=== PATIENT | female | born 1975 | race Caucasian/White ===

== ENCOUNTER → 2024-10-26 18:26 | Outpatient (REF) | payer OTHER, SELFPAY | LOC: RAD 18:26 | PROVIDERS: ATTENDING PHYSICIAN Physician Assistant | DX: R60.0 Localized edema (principal) | CPT/HCPCS: 71046 ==

== ENCOUNTER 2024-11-29 16:57 | Inpatient (IN) | payer OTHER, SELFPAY ==
[2024-11-29] VITALS (9 sets, daily range): BP systolic 118–193; BP diastolic 90–132; BMI 39.2
--- NOTE | 2024-11-29 10:58 | ED.GENMED ---
History of Present Illness
General
Chief Complaint: Blood Pressure Problem
Source: patient
Time Seen by Provider: 11/29/24 10:40
History of Present Illness
History of Present Illness:
49-year-old female with past medical history of hypertension, GERD, cannabinoid hyperemesis presenting to the emergency department for evaluation of persistent nausea and vomiting, body cramping and generally feeling unwell which started earlier
today with patient noting she recently started Zepbound this past but noting her symptoms feel more like her cannabinoid hyperemesis. Patient notes that she has not used any cannabinoid products since 2 weeks ago. She denies any fevers,
chills, rigors, urinary symptoms or bowel changes. No known sick contacts, recent travel or recent antibiotics. Patient did not attempt any medications prior to arrival. She notes that she has had relief with Compazine and Benadryl in the past
with her cannabinoid hyperemesis symptoms. Patient was started on Zepbound by her drop wire operator as part of a weight loss regimen.
Past History
Past History
ED Past Medical History: GERD, HTN, Psychiatric (Anxiety, depression, Panic disorder) and Other (Migraine HAs, enteritis, Cyclical vomiting, Gastritis, Colitis, DVT, Endometriosis, )
ED Past Surgical History: and Other (Rhinoplasty/sinus surgery)
Social History
Tobacco: Non-smoker
Alcohol: Occasional
Drug: Marijuana (daily)
Personal:
Living: with family
Employment: Employed
Family History
Family History: Other; Negative Diabetes, Hypertension or CAD
Review of Systems
Review of Systems
All Other Systems: ROS reviewed and negative except as documented in HPI and ROS
Phy Exam
Physical Exam
Physical Exam:
GENERAL: Alert , in no apparent distress, But appears very anxious, tremulous, hyperventilating
EYE: clear conjunctiva b/l
HEAD: NCAT
ENT: o/p clr, mmm.
CARDIAC: Regular rate and rhythm .
LUNGS: Clear breath sounds bilaterally, no acute respiratory distress, no wheezes/rales/rhonchi
ABDOMEN: Soft, generally tender, no r/g, no cvat
NEUROLOGICAL: Alert and oriented
SKIN: Warm and dry, skin intact.
MUSCULOSKELETAL: No edema, well perfused.
PSYCH: Normal and appropriate interaction.
Scores
Heart Failure Risk
Heart Failure Risk Score: Not Applicable
Heart Score for Chest Pain Patients
STEMI patient?: Not applicable
Withdrawal Assessment of Alcohol
Withdrawal Assessment Completed?: Not applicable
Course
Orders/Labs/Results
Orders:
Orders
11/29/24 09:32
EKG [Electrocardiogram (*1)] Urgent
Reason for Study: Chest Pain
EKG- Treatment ONCE
11/29/24 10:47
0.9% Sodium Chloride 1000 ml [Nss] 1,000 ml IV BOLUS
Diphenhydramine [Benadryl] 25 mg IV NOW STA
Prochlorperazine [Compazine] 10 mg IV NOW STA
11/29/24 10:48
Test Result ONCE
11/29/24 11:11
Complete Blood Count/With Diff Urgent
11/29/24 11:53
Lorazepam [Ativan] 1 mg IV NOW STA
Ondansetron Injectable [Zofran] 4 mg IV NOW STA
11/29/24 12:07
Comprehensive Metabolic Panel Urgent
HCG, Serum Qualitative Screen Urgent
Lipase Urgent
11/29/24 12:51
0.9% Sodium Chloride 1000 ml [Nss] 1,000 ml IV BOLUS
11/29/24 15:35
Ondansetron Injectable [Zofran] 4 mg IV NOW STA
11/29/24 16:20
CT Abd/pel (oral only)-DH Only Urgent
Comment:
Reason For Exam: intractable nausea and vomiting
Iohexol [Omnipaque] See Protocol PO NOW STA
11/29/24 16:29
Admit/Transfer Patient As Directed
Co-Sign Provider:
Level of Care: Inpatient admission
Assign to:: Medical/Surgical
Physician / Group: Gregory Giang
Diagnosis: intractable nausea and vomiting
Reason for Hospitalization: intractable nausea and vomiting
Expected length of stay greater than two midnights?: Yes
ELOS- Estimated Length of Stay in days: 3
I certify the patient meets the requirements for IP care: Yes
PRN Pain Medication Management As Directed
May give lesser potent ordered pain med per pt: Yes
preference::
Protocol:: Medication orders for pain may be administered in a
manner that supports deferring to patient preference
when the pt is:
- Requesting an ordered lesser potent pain medication.
Least to most potent pain medications are defined
as: acetaminophen < NSAID < tramadol < opioids
(morphine, oxycodone, hydromorphone).
- Requesting a lesser dose of the same medication IF
ORDERED.
- Requesting a less intrusive route of administration
if both routes are prescribed by the provider (PO <
IV).
11/29/24 16:30
Code Status As Directed
Resuscitation Status: Full Code
11/29/24 16:46
Lorazepam [Ativan] 2 mg IV NOW STA
11/29/24 16:47
Metoclopramide [Reglan] 10 mg IV NOW STA
11/29/24 16:52
0.9% Sodium Chloride [Nss (Preservative Free)] 1 ml IV NOW STA
Abnormal Lab Results
11/29/24 11/29/24
11:11 12:07
WBC 13.2 H 10^3/uL
(4.8-10.8)
Hgb 16.1 H g/dL
(12.0-16.0)
MCH 31.8 H pg
(27.0-31.0)
Abs Immat Gran (auto) 0.1 H 10^3/uL
(0-0.05)
Absolute Neuts (auto) 10.4 H 10^3/uL
(1.4-6.5)
Immature Gran % 0.8 H %
(0-0.5)
Neutrophils % 78.7 H %
(42.2-75.2)
Lymphocytes % 15.1 L %
(20.5-51.1)
Carbon Dioxide 15 L mmol/L
(22-30)
BUN 21 H mg/dl
(7-17)
Creatinine 1.2 H mg/dL
(0.6-1.0)
Glucose 146 H mg/dl
(70-99)
Total Bilirubin 1.4 H mg/dl
(0.2-1.3)
AST 46 H U/L
(14-36)
ALT 37 H U/L
(0-35)
Alkaline Phosphatase 145 H U/L
(38-126)
Albumin 5.2 H g/dl
(3.5-5.0)
11/29/24 11:11
11/29/24 12:07
Vital Signs
Initial and Last Documented VS:
Initial Vital Signs
Temp Pulse Resp BP Pulse Ox
98.0 F 106 18 193/120 99
11/29/24 09:29 11/29/24 09:29 11/29/24 09:29 11/29/24 09:29 11/29/24 09:29
Last Documented Vital Signs
Temp Pulse Resp BP Pulse Ox
98.0 F 117 17 152/91 97
11/29/24 09:29 11/29/24 16:15 11/29/24 16:15 11/29/24 16:10 11/29/24 16:15
MDM/Problems Addressed
Differential Diagnosis Includes:
Adverse reaction to new medication, cannabinoid hyperemesis thought to be a little less likely given patient's last use was over 2 weeks ago, hypertensive urgency, dehydration, electrolyte derangement, pancreatitis
MDM/Problems Addressed:
49-year-old female presenting to the emergency department for evaluation of generalized abdominal pain, nausea, vomiting and body cramping which started earlier today. History of cannabinoid hyperemesis but last used 2 weeks ago. Recently started
on Zepbound this past . Patient significantly hypertensive, tachycardic on arrival. Will monitor BP and heart rate. Will treat symptoms with Compazine and Benadryl as patient has noted much relief with this in the past. Will also treat
with IV fluids. Labs ordered. Disposition pending.
Chronic conditions affecting care: Other (Cannabinoid hyperemesis, difficult to control hypertension)
Acute Exacerbation and/or Progression of Chronic Illness: HTN
*Pulse Oximetry
Patient hypoxic: no
*Galvanizer Zinc Interpretation
Rate: normal
Rhythm: sinus
*Critical Care Note
Total Time (30-74mins, 75-104mins- exclusive of procedures): Not Applicable
Comment
Comment:
11:53 AM: On reevaluation patient still noting nausea and anxiety. She still does appear quite anxious as well. 1 mg of Ativan and Zofran ordered. Patient QT within normal limits on initial EKG.
Patient Management
Discussion with other providers: Hospitalist
Escalation/DeEscalation of care consider admission/obs:
Following Ativan and Zofran patient did report relief of symptoms. Continuing to observe and will plan to repeat BMP following completion of second liter of IV fluids.
Prior to completing second liter of IV fluids patient started having persistent vomiting again. Second dose of Zofran ordered. Given this is the third round of medications combined with intractable symptoms we will plan for admission for continued
hydration and medication management
ED Attending Note
-
Portions of this chart may have been created with voice recognition software.� Occasional wrong word or��sound alike� substitutions may have occurred due to the inherent limitations of voice recognition software.
Discharge Plan
Departure
Patient Disposition: Admit
Date of Disposition: 11/29/24
Time of Disposition: 15:37
Presentation/result/management discussed w/ accepting MD/DO: Hospitalist
Discharge Problem:
Intractable vomiting, Dehydration
Interventions
Interventions:
*Risk Screen - Suicide Last Done: 11/29/24 09:29
*General Assessment Last Done: 11/29/24 09:29
*Neglect/Abuse Screening Last Done: 11/29/24 09:29
*ED COVID-19 Vaccine History Last Done: 11/29/24 09:29
ED- Cardiac Assessment Last Done: 11/29/24 11:35
ED- Neurological Assessment Last Done: 11/29/24 11:35
ED- Pulmonary Assessment Last Done: 11/29/24 11:35
[2024-11-29] MEDS: COMPAZINE 10 MG IV (11:05)
[2024-11-29] MEDS: BENADRYL 25 MG IV (11:05)
[2024-11-29] MEDS: NSS 1000 IV ×3 (11:06→20:42)
[2024-11-29 11:28] LABS: % Basophils 0.7 % (0-2); % Eosinophils 0.2 % (0-6); % Immature Granulocytes 0.8 % (0-0.5); % Lymphocytes 15.1 % (20.5-51.1); % Monocytes 4.5 % (1.7-9.3); % Neutrophils 78.7 % (42.2-75.2); Absolute Basophils 0.1 10^3/uL (0-0.2); Absolute Immature Granulocytes 0.1 10^3/uL (0-0.05); Absolute Monocytes 0.6 10^3/uL (0.1-0.6); Absolute Neutrophils 10.4 10^3/uL (1.4-6.5); Hematocrit 45.2 % (37.0-47.0); Hemoglobin 16.1 g/dL (12.0-16.0); Mean Corp Hgb Conc. 35.6 g/dL (33.0-37.0); Mean Corpuscular Hgb 31.8 pg (27.0-31.0); Mean Corpuscular Volume 89.2 fL (81.0-99.0); Mean Platelet Volume 9.6 fL (7.4-10.4); Nucleated Red Blood Cells % 0 %; Platelet Count 348 10^3/uL (130-400); Red Blood Cell Count 5.07 10^6/uL (4.20-5.40); Red Cell Dist. Width 12.9 % (11.5-14.5); White Blood Cell Count 13.2 10^3/uL (4.8-10.8)
[2024-11-29] MEDS: ATIVAN 1 MG IV (12:00)
[2024-11-29] MEDS: ZOFRAN 4 MG IV ×2 (12:00→15:39)
[2024-11-29 12:29] LABS: HCG, Serum Qualitative Screen Negative
[2024-11-29 12:41] LABS: ALT (SGPT) 37 U/L (0-35); AST (SGOT) 46 U/L (14-36); Albumin 5.2 g/dl (3.5-5.0); Alkaline Phosphatase 145 U/L (38-126); Blood Urea Nitrogen 21 mg/dl (7-17); Calcium 9.9 mg/dl (8.4-10.2); Carbon Dioxide 15 mmol/L (22-30); Chloride 98 mmol/L (98-107); Glucose 146 mg/dl (70-99); Lipase 133 U/L (23-300); Potassium 4.1 mmol/L (3.5-5.1); Sodium 136 mmol/L (135-145); Total Bilirubin 1.4 mg/dl (0.2-1.3); Total Protein 8.2 g/dl (6.3-8.2); eGFR 55.49
--- NOTE | 2024-11-29 15:41 | HPS.HSE ---
Family Physician
-
Family Physician: Law Bush
Chief Complaint
-
intractable nausea and vomiting
History of Present Illness
Patient is a 49-year-old female with past medical history significant for hypertension, hyperlipidemia, cannabinoid hyperemesis and depression who presented to [facility] for evaluation of persistent nausea and vomiting associated with body
cramping and generally feeling unwell starting after taking Zepbound on and increasingly gotten worse. Patent reports last cannabis use was 2 weeks ago and newly she started Zepbound this past . Patient states Zepbound was started
by truck body repairer to be a part of a weight loss regimen and first injectable she has tried to help with weight loss. She denies fever, cough, shortness of breath, constipation, diarrhea or urinary symptoms.
Medical History
Past Medical History
Past Medical History: Reports Other
Additional Past Medical History:
hypertension
hyperlipidemia
cannabinoid hyperemesis
depression
Past Surgical History: Reports Other
Additional Past Surgical History:
x2
septoplasty
rhinoplasty
wisdom teeth extraction
Social History
Tobacco: Non-smoker
Alcohol: Occasional
Drug: Former User and Marijuana (last smoked 2weeks ago)
Living: With Family
Employment: Employed
Family History
Family History: Not pertinent
Allergies / Home Medications
Allergies reflects when Allergies were last updated in [facility].
Home Medications with original date entered in [facility]
Allergy/Medication List:
Allergies
Allergy/AdvReac Type Severity Reaction Status Date / Time
No Known Allergies Allergy Verified 11/29/24 09:32
Home Medications
nifedipine 60 mg tablet,extended release 60 mg PO DAILY Blood pressure 03/09/19
venlafaxine 150 mg capsule,extended release 24 hr (Effexor XR) 150 mg PO DAILY #30 caps 07/25/19
venlafaxine 75 mg capsule,extended release 24 hr 75 mg PO DAILY #30 caps 07/25/19
metoprolol succinate 50 mg tablet,extended release 24 hr 50 mg PO DAILY Blood pressure 02/23/22
pantoprazole 40 mg tablet,delayed release (Protonix) 40 mg PO DAILY #30 tabs 10/13/23
aripiprazole 10 mg tablet (Abilify) 10 mg PO DAILY 11/29/24
dexmethylphenidate 10 mg tablet (Focalin) 10 mg PO DAILY 11/29/24
Review of Systems
-
History Source: Patient
Constitutional: Reports Chills
EENT: Reports No Symptoms
Respiratory: Reports No Symptoms
Cardiac: Reports No Symptoms
Abdomen/GI: Reports Nausea and Vomiting
: Reports No Symptoms
Musculoskeletal: Reports No Symptoms
Skin: Reports No Symptoms
Neurological: Reports No Symptoms
Endocrine: Reports No Symptoms
Hematologic/Lymphatic: Reports No Symptoms
Psych: Reports No Symptoms
Physical Exam
Vital Signs
Vital Signs
Temp Pulse Resp BP Pulse Ox
98.0 F 125 22 142/90 100
11/29/24 09:29 11/29/24 11:40 11/29/24 11:40 11/29/24 11:40 11/29/24 11:40
Physical Exam
General: Well Developed, Well Nourished and Appears in Distress
HEENT: NormoCephalic, Moist mucous membranes, Atraumatic, [place] Conjunctivae, Nose Appears Normal and Ears Appear Normal
Respiratory: Clear and Non Labored Respirations
Cardiac: S1/S2, Regular Rhythm and Tachycardia; No Murmur, Rub or Gallop
Breast: Deferred by me
GI: Soft, Non Tender and Other (hypoactive bowel sounds ); No Organomegaly
Rectal: Deferred by Provider
Genito-urinary: Deferred by me
Musculoskeletal: No Clubbing, No Cyanosis and No Edema
Skin: Warm and IV/Catheter Site; No Rash
Neuro: Awake, Alert, AO x 3 and Nonfocal/grossly intact
Psych: Intact Judgment/Insight
Laboratory Results
-
11/29/24 11:11
11/29/24 12:07
Laboratory Results
Total Bilirubin 1.4 mg/dl (0.2-1.3) H 11/29/24 12:07
AST 46 U/L (14-36) H 11/29/24 12:07
ALT 37 U/L (0-35) H 11/29/24 12:07
Alkaline Phosphatase 145 U/L (38-126) H 11/29/24 12:07
Lipase 133 U/L (23-300) 11/29/24 12:07
Data Reviewed
-
Medical Tests (Nuc Med, Echo, EKG etc): Report Reviewed by me (EKG: SINUS TACHYCARDIA POSSIBLE LEFT ATRIAL ENLARGEMENT BORDERLINE ECG)
Lab Data: Labs Reviewed by me (WBC 13.2, BUN 21, Creat 1.2, Tot Sreedhar 1.4, AST 46, ALT 37, Alk Phos 145)
Impression/Plan
-
IMPRESSION/PLAN:
#intractable nausea and vomiting
WBC 13.2
CT Abd/pelvis: pending
- Admit to med/surg
- IVF
- antiemetics
- supportive care
#hypertension
- continue metoprolol, and nifedipine
#depression
- continue aripiprazole, and venlafaxine
#cannabinoid hyperemesis
patient last use 2 weeks ago
- encourage continued cessation
#hyperlipidemia
Code Status: Full code
DVT Prophylaxis: SCDs
[2024-11-29] MEDS: OMNIPAQUE 50 ML PO (16:53)
[2024-11-29] MEDS: ATIVAN 2 MG IV (16:54)
[2024-11-29] MEDS: REGLAN 10 MG IV ×2 (16:54→19:57)
--- NOTE | 2024-11-29 20:46 | W.PN.UPDATE ---
Update Note
Progress Note Update
Attending addendum
Patient seen idependently
49-year-old woman with past medical history significant for:
hypertension,
hyperlipidemia,
cannabinoid hyperemesis
depression
presents with persistent nausea and vomiting associated with body cramping and generally feeling unwell. This started after taking Zepbound (GLP-1 injectable weight loss drug) on and has been increasingly gotten worse. Last cannabis use
was 2 weeks ago. She denies fever, cough, shortness of breath, constipation, diarrhea or urinary symptoms. CT ordered in ED, but results pending.
Past Medical History
hypertension
hyperlipidemia
cannabinoid hyperemesis
depression
Past Surgical History: Reports Other
Additional Past Surgical History:
x2
septoplasty
rhinoplasty
wisdom teeth extraction
Physical Exam
General: Well Developed, Well Nourished and Appears in Distress
HEENT: NormoCephalic, Moist mucous membranes, Atraumatic, [place] Conjunctivae, Nose Appears Normal and Ears Appear Normal
Respiratory: Clear and Non Labored Respirations
Cardiac: S1/S2, Regular Rhythm and Tachycardia; No Murmur, Rub or Gallop
GI: Soft, Non Tender and Other (hypoactive bowel sounds ); No Organomegaly
Psych: Intact Judgment/Insight
IMPRESSION/PLAN:
1. intractable nausea and vomiting
This is less likely cannabinoid hyperemesis (given timeline) and more likely gastroparesis from GLP-1.
Reglan
IVF
NPO
IV ativan
Supportive care
Please see PROGRAMS DIRECTOR note for full details on
hypertension
depression
cannabinoid hyperemesis
hyperlipidemia
Code Status: Full code
DVT Prophylaxis: SCDs
[2024-11-29] MEDS: LOPRESSOR 5 MG IV (23:14)
--- NOTE | 2024-11-29 23:23 | PTCARENOTE ---
Pt received on unit approximately 1900. Pt able to walk from stretcher to bed with no difficulty. Pt med-surge. AAOx3 and able to make needs known. Pt VS checked again at 8pm her BP was 187/113 and tachycardic in the 120s. Pt requested she wanted to
sleep and had been moving a bit. BP took again at 2230 with a result of 179/121 in the ROSS and then taken again on the TOR 168/112. Pt denies headache or blurry vision, but she states she feels 'kind of wonky 'and still tachycardic in the 110s-
120s. DEPUTY CLERK notified, new orders received, Lopressor mg IV NOW.
[2024-11-30] VITALS (7 sets, daily range): BP systolic 143–190; BP diastolic 82–120
--- NOTE | 2024-11-30 02:10 | DOWNTIME ---
There was a [employer] Client Process Worker Downtime on 11/30/2024 from 0100 to 11/30/2023 at 0205 . Downtime documentation of patient's care, including medication administrations, has been reconciled in the electronic record per guidelines. Refer to the
patient's paper chart under the miscellaneous tab to see printed paper medication records and downtime forms.
[2024-11-30 07:58] LABS: Hematocrit 40.4 % (37.0-47.0); Hemoglobin 13.5 g/dL (12.0-16.0); Mean Corp Hgb Conc. 33.4 g/dL (33.0-37.0); Mean Corpuscular Hgb 31.6 pg (27.0-31.0); Mean Corpuscular Volume 94.6 fL (81.0-99.0); Mean Platelet Volume 9.9 fL (7.4-10.4); Platelet Count 282 10^3/uL (130-400); Red Blood Cell Count 4.27 10^6/uL (4.20-5.40); Red Cell Dist. Width 13.4 % (11.5-14.5); White Blood Cell Count 13.2 10^3/uL (4.8-10.8)
[2024-11-30 08:17] LABS: Blood Urea Nitrogen 15 mg/dl (7-17); Calcium 8.6 mg/dl (8.4-10.2); Carbon Dioxide 22 mmol/L (22-30); Chloride 101 mmol/L (98-107); Estimated Creatinine Clearance 89 ml/min; Glucose 98 mg/dl (70-99); Potassium 4.1 mmol/L (3.5-5.1); eGFR > 60.00
[2024-11-30 08:22] LABS: Sodium 138 mmol/L (135-145)
[2024-11-30] MEDS: NSS 1000 IV ×2 (08:54→17:21)
[2024-11-30] MEDS: EFFEXOR XR 75 MG PO (08:55)
[2024-11-30] MEDS: EFFEXOR XR 150 MG PO (08:55)
[2024-11-30] MEDS: ABILIFY 10 MG PO (08:55)
[2024-11-30] MEDS: PROCARDIA XL (EXTENDED RELEASE) 60 MG PO (08:55)
[2024-11-30] MEDS: PROTONIX 40 MG PO (08:55)
[2024-11-30] MEDS: TOPROL XL 50 MG PO (08:55)
--- NOTE | 2024-11-30 09:31 | W.PN.HOSP.TC ---
Addendum entered and electronically signed by Shantel Corral MD 11/30/24 12:44:
I saw and evaluated the patient. I reviewed the resident�s note and agree with findings and plan as documented in the resident�s note.
A/P:
# Intractable nausea and vomiting, ddx include side effect of Zepbound, vs gastroparesis, vs cyclic vomiting syndrome/cannabis hyperemesis syndrome
Mild leukocytosis at 13.2 likely reactive, patient is afebrile and non-toxic appearing
CT AP largely unrevealing: small hiatal hernia. Mild gastric distention. Mild circumferential wall thickening throughout most of the colon. SEVERE DIFFUSE HEPATIC STEATOSIS
Cont clears and advance diet as tolerated
Zofran PRN for nausea
trial of hot shower and lidocaine cream to apply over anterior abdomen.
noted UDS positive for benzodiazepines (patient received Ativan during her hospital stay), marijuana.
# Mild transaminitis likely from hepatic steatosis
Trend LFTs
# Hypertension
continue metoprolol, nifedipine
# Depression
mood stable
continue aripiprazole, venlafaxine
# cannabinoid hyperemesis
patient last used 2 weeks ago
encourage cessation
Code Status: Full code
DVT Prophylaxis: SCDs
Original Note:
Today's Communication/Plan
-
Ondansetron as needed
Advance diet as tolerated
Lidocaine cream on abdomen
Hot shower
Trend LFTs a.m.
Assessment / Plan
Assessment / Plan
49-year-old for female, with past medical history of hypertension, hyperlipidemia, cannabinoid hyperemesis syndrome and depression admitted for persistent nausea and vomiting after she started taking Zepbound.
Impression/plan
#Intractable nausea and vomiting
Likely from side effect of Zepbound, gastroparesis versus cannabis hyperemesis syndrome
Mild leukocytosis at 13.2, patient is afebrile, no diarrhea, will monitor.
CT abdomen pelvis�11/29/2024�
Small hiatal hernia.Mild gastric distention without evidence for obstruction. Mild circumferential wall thickening throughout most of the colon. Diagnostic possibilities are (1) a mild colitis or (2) under distention of the colonic lumen.SEVERE
DIFFUSE HEPATIC STEATOSIS.Small intramural uterine leiomyoma.Severe discogenic degenerative disease at L5/S1.
Continue IV fluids
Advance diet as tolerated
Stop Reglan, concern for dyskinesias. Will start her on ondansetron as needed.
Lidocaine cream on the abdomen
Hot shower
Urine drug screen positive for benzodiazepines (patient received Ativan during her hospital stay), marijuana.
#Mild transaminitis
Likely from hepatic steatosis
Trend LFTs
#Hypertension
continue metoprolol, and nifedipine
#Depression
continue aripiprazole, and venlafaxine
#cannabinoid hyperemesis
patient last used 2 weeks ago
encourage cessation
Code Status: Full code
DVT Prophylaxis: SCDs
Anticipated Discharge: 24 - 48 hours
Subjective/Interval History
-
Date of Service: November 30, 2024
Patient was not able to tolerate clears. Feels nauseous. Abdominal pain has improved.
Objective Data
-
Labs:
Laboratory Results
11/30/24
07:20
WBC 13.2 H
Hgb 13.5
Hct 40.4
Plt Count 282
Sodium 138
Potassium 4.1
Chloride 101
Carbon Dioxide 22
BUN 15
Creatinine 0.9
Glucose 98
Calcium 8.6
Vital Signs:
Vital Signs
Temp Pulse Resp BP Pulse Ox
97.9 F 93 18 149/82 96
11/30/24 07:40 11/30/24 07:40 11/30/24 07:40 11/30/24 07:40 11/30/24 07:40
I&O
11/29/24 11/30/24 12/01/24
06:59 06:59 06:59
Intake Total 1600 / 1600
Balance 1600 / 1599
Review of Systems
-
All other systems: Reviewed and negative (As per HPI)
Physical Exam
-
General: Well Developed, Well Nourished and No Apparent Distress
HEENT: Normocephalic, Atraumatic and Moist Mucous Membranes
Respiratory: Clear to Auscultation
Cardiac: Regular Rhythm and S1/S2
GI: Soft, Nontender, Nondistended and Normal Bowel Sounds
Musculoskeletal: No Clubbing, No Cyanosis and No Edema
Skin: Warm and Dry
Neuro: Awake, Alert, Oriented and AO x 3
Data Reviewed
-
CT Scan: Report Reviewed by me
--- NOTE | 2024-11-30 10:08 | PTCARENOTE ---
Patient had clear liquids for breakfast , vomited post meal . Denies any abdominal pain . Urine spec sent
[2024-11-30 11:18] LABS: Amphetamines Negative (Negative); Barbiturates Negative (Negative); Benzodiazepines Positive (Negative); Buprenorphine Negative (Negative); Cocaine Negative (Negative); Marijuana Positive (Negative); Methadone Negative (Negative); Methamphetamines Negative (Negative); Opiates Negative (Negative); Phencyclidine Negative (Negative); Tricyclic Antidepressants Negative (Negative)
[2024-11-30] MEDS: LMX 4 1 APPLIC TOPICAL (11:51)
[2024-11-30] MEDS: ZOFRAN 4 MG IV ×2 (11:51→19:29)
[2024-11-30 13:34] LABS: Fentanyl, Urine Negative (Negative)
[2024-11-30] MEDS: NSS (PRESERVATIVE FREE) 0.5 ML IV (16:26)
[2024-11-30] MEDS: ATIVAN 1 MG IV (16:26)
--- NOTE | 2024-11-30 16:26 | CM ---
Pt seen bedside. Initial assessment completed. Admitted for intractable nausea and vomiting.
Pt reports that she lives w/ her 4 children. Pt is independent, denies DME for ambulation or daily functioning
Denies SNF/VN/PT hx. Pt denies any current OP or home services
Address, point of contact and insurance verified
PCP: Dr. Bush
Pharmacy: [facility]
CM consulted for advanced directive. Pt declines needing this at this time
Plan: Home; no needs anticipated
[2024-11-30] MEDS: APRESOLINE 10 MG IV ×2 (17:49→23:50)
[2024-11-30] MEDS: TUMS CHEWABLE TABLET 200 MG PO (23:50)
[2024-12-01] VITALS (9 sets, daily range): BP systolic 102–176; BP diastolic 54–110
--- NOTE | 2024-12-01 02:56 | PTCARENOTE ---
Pt sustaining high BPs with SBP 160-170s and DBP 110s, HR in the 120s PRN hydralazine administered with no effect BPs remaining at the same range, DOG WARDEN notified, new order received Lopressor 5mg IV.
[2024-12-01] MEDS: LOPRESSOR 5 MG IV (03:02)
[2024-12-01] MEDS: NSS IV ×2 (03:06→16:52)
[2024-12-01] MEDS: NSS 1000 IV (04:06)
[2024-12-01] MEDS: ATIVAN 1 MG IV (04:18)
[2024-12-01] MEDS: NSS (PRESERVATIVE FREE) 0.5 ML IV (04:20)
[2024-12-01] MEDS: ABILIFY 10 MG PO (06:41)
[2024-12-01] MEDS: PROCARDIA XL (EXTENDED RELEASE) 60 MG PO (06:41)
[2024-12-01] MEDS: PROTONIX 40 MG PO (06:42)
[2024-12-01] MEDS: TOPROL XL 50 MG PO (06:42)
[2024-12-01] MEDS: EFFEXOR XR 75 MG PO (06:42)
[2024-12-01] MEDS: EFFEXOR XR 150 MG PO (06:42)
[2024-12-01 08:03] LABS: % Basophils 0.3 % (0-2); % Immature Granulocytes 0.5 % (0-0.5); % Lymphocytes 13.9 % (20.5-51.1); % Monocytes 5.4 % (1.7-9.3); % Neutrophils 79.9 % (42.2-75.2); Absolute Immature Granulocytes 0.1 10^3/uL (0-0.05); Absolute Lymphocytes 1.7 10^3/uL (1.2-3.4); Absolute Monocytes 0.7 10^3/uL (0.1-0.6); Absolute Neutrophils 9.9 10^3/uL (1.4-6.5); Hematocrit 44.2 % (37.0-47.0); Mean Corp Hgb Conc. 33.9 g/dL (33.0-37.0); Mean Corpuscular Hgb 31.6 pg (27.0-31.0); Mean Corpuscular Volume 93.1 fL (81.0-99.0); Nucleated Red Blood Cells % 0 %; Platelet Count 322 10^3/uL (130-400); Red Blood Cell Count 4.75 10^6/uL (4.20-5.40); Red Cell Dist. Width 13.3 % (11.5-14.5); White Blood Cell Count 12.3 10^3/uL (4.8-10.8)
[2024-12-01] MEDS: APRESOLINE 10 MG IV (08:32)
[2024-12-01 08:34] LABS: ALT (SGPT) 33 U/L (0-35); AST (SGOT) 35 U/L (14-36); Albumin 4.9 g/dl (3.5-5.0); Alkaline Phosphatase 131 U/L (38-126); Blood Urea Nitrogen 10 mg/dl (7-17); Calcium 8.9 mg/dl (8.4-10.2); Carbon Dioxide 20 mmol/L (22-30); Chloride 101 mmol/L (98-107); Estimated Creatinine Clearance 100 ml/min; Glucose 102 mg/dl (70-99); Potassium 3.8 mmol/L (3.5-5.1); Sodium 138 mmol/L (135-145); Total Bilirubin 0.8 mg/dl (0.2-1.3); Total Protein 7.8 g/dl (6.3-8.2); eGFR > 60.00
[2024-12-01] MEDS: ZOFRAN 4 MG IV (08:34)
--- NOTE | 2024-12-01 08:38 | W.PN.HOSP.TC ---
Addendum entered and electronically signed by Shantel Corral MD 12/01/24 10:27:
I saw and evaluated the patient. I reviewed the resident�s note and agree with findings and plan as documented in the resident�s note.
A/P:
# Intractable nausea and vomiting, ddx include side effect of Zepbound, vs gastroparesis, vs cyclic vomiting syndrome/cannabis hyperemesis syndrome
Mild leukocytosis likely reactive, patient is afebrile and non-toxic appearing
CT AP largely unrevealing: small hiatal hernia. Mild gastric distention. Mild circumferential wall thickening throughout most of the colon. SEVERE DIFFUSE HEPATIC STEATOSIS
Cont clears and advance diet as tolerated
Zofran PRN for nausea
Cont trial of hot shower and lidocaine cream to apply over anterior abdomen for N/V
noted UDS positive for benzodiazepines (patient received Ativan during her hospital stay), marijuana.
# Mild transaminitis likely from hepatic steatosis, resolved
# Hypertension
continue metoprolol, nifedipine
# Depression
mood stable
continue aripiprazole, venlafaxine
# cannabinoid hyperemesis
patient last used 2 weeks ago
encourage cessation
Code Status: Full code
DVT Prophylaxis: SCDs
Original Note:
Today's Communication/Plan
-
Add Compazine for nausea
Advance diet as tolerated
Assessment / Plan
Assessment / Plan
49-year-old for female, with past medical history of hypertension, hyperlipidemia, cannabinoid hyperemesis syndrome and depression admitted for persistent nausea and vomiting after she started taking Zepbound.
Impression/plan
#Intractable nausea and vomiting
Likely from side effect of Zepbound, gastroparesis versus cannabis hyperemesis syndrome
Mild leukocytosis at 12.3, patient is afebrile, no diarrhea, will monitor.
CT abdomen pelvis�11/29/2024�
Small hiatal hernia.Mild gastric distention without evidence for obstruction. Mild circumferential wall thickening throughout most of the colon. Diagnostic possibilities are (1) a mild colitis or (2) under distention of the colonic lumen.SEVERE
DIFFUSE HEPATIC STEATOSIS.Small intramural uterine leiomyoma.Severe discogenic degenerative disease at L5/S1.
IV fluids
Advance diet as tolerated
Stop Reglan, concern for dyskinesias. ondansetron as needed.
Will add Compazine as needed
Lidocaine cream on the abdomen
Hot shower
Urine drug screen positive for benzodiazepines (patient received Ativan during her hospital stay), marijuana.
#Mild transaminitis
Likely from hepatic steatosis
Trending down
Will monitor
#Hypertension
continue metoprolol, and nifedipine
Hydralazine as needed with holding parameters
#Depression
continue aripiprazole, and venlafaxine
#cannabinoid hyperemesis
patient last used 2 weeks ago
encourage cessation
Code Status: Full code
DVT Prophylaxis: SCDs
Anticipated Discharge: 24 - 48 hours
Subjective/Interval History
-
Date of Service: December 01, 2024
Patient reports that her nausea has not improved much. She is not able to keep down clears. No abdominal pain.
Reports that hot showers and lidocaine cream has helped her.
Objective Data
-
Labs:
Laboratory Results
12/01/24
06:31
WBC 12.3 H
Hgb 15.0
Hct 44.2
Plt Count 322
Sodium 138
Potassium 3.8
Chloride 101
Carbon Dioxide 20 L
BUN 10
Creatinine 0.8
Glucose 102 H
Calcium 8.9
Total Bilirubin 0.8
AST 35
ALT 33
Alkaline Phosphatase 131 H
Vital Signs:
Vital Signs
Temp Pulse Resp BP Pulse Ox
98.6 F 120 22 176/107 99
12/01/24 08:35 12/01/24 08:35 12/01/24 08:35 12/01/24 08:35 12/01/24 08:35
I&O
11/30/24 12/01/24 12/02/24
06:59 06:59 06:59
Intake Total 1600 / 1600 2920 / 2920
Balance 1600 / 1600 2920 / 2920
Review of Systems
-
All other systems: Reviewed and negative (As per history)
Physical Exam
-
General: Well Developed, Well Nourished and No Apparent Distress
HEENT: Normocephalic and Atraumatic
Respiratory: Clear to Auscultation
Cardiac: Regular Rhythm and S1/S2
GI: Soft, Nontender, Nondistended and Normal Bowel Sounds
Skin: Warm and Dry
Neuro: Awake, Alert, Oriented and AO x 3
Psych: Calm
--- NOTE | 2024-12-01 10:53 | PN.CDI ---
CDI
- -
CDI:
Physician Documentation Request
Admit Date: 11/29/24 16:57
Dear Doctor,
Please review the following and provide your response in the progress notes.
Clinical Indicators:
- Patient admit with intractable nausea and vomiting.
- 11/28 ER Physician 'dehydration'
- 6L IVF given
Laboratory Tests
11/29/24 11/30/24 12/01/24
12:07 07:20 06:31
Creatinine 1.2 H 0.9 0.8
eGFR 55.49 > 60.00 > 60.00
Please clarify which of the following accurately represents the patient's renal status:
NORBERT
NORBERT on CKD 2
Other (please specify)
Criteria for NORBERT*
1 Increase in serum creatinine by > or = to 0.3 mg/dL (> or = to 26.5 micromol/L) within 48 hours, OR
2 Increase in serum creatinine to > or = to 1.5 times baseline, which is known or presumed to have occurred within 7 days, OR
3 Urine volume < 0.5 nL/kg/hour for six hours
Stages of Chronic Kidney Disease*
Level Description GFR
G1 Normal or High >90
G2 Mildly decreased 60-89
G3a Mildly to moderately decreased 45-59
G3b Moderately to severely decreased 30-44
G4 Severely decreased 15-29
G5 Kidney failure <15
Use of terms such as suspected, likely, concern for, or probable (associated with a specific diagnosis that is being evaluated, monitored, or treated as if it exists) are acceptable and can be coded in the inpatient setting, when documented at the
time of discharge.
Thank you,
Fred Barreto RN
CDI Specialist
Please use your independent medical judgment in providing your response.
*Source: Kidney Disease: Improving Global Outcomes (KDIGO) 2012
--- NOTE | 2024-12-01 11:27 | PN.CDI ---
CDI
- -
CDI:
Physician Documentation Request
Admit Date: 11/29/24 16:57
Dear Doctor,
Please review the following and provide your response in the progress notes.
Clinical Indicators:
- Patient admit for intractable nausea and vomiting
- pmh hypertension - home meds nifedipine, metoprolol
- Elevated BPs
- IV hydralazine given x 3
Selected Entries
11/29/24
09:29 11/29/24
18:00 11/29/24
19:54
Blood pressure 193/120 185/132 187/113
11/29/24
23:26 11/30/24
17:30 11/30/24
18:34
Blood pressure 189/117 190/110 188/98
Please clarify which, if any of the following, is a more accurate diagnosis reflecting the type and acuity of the documented hypertension:
Essential primary hypertension only
Hypertensive Urgency - B/P is severely elevated (systolic > or = to 180 or diastolic > or = to 110) but there is no associated organ damage. Symptoms may include: headache, shortness of breath, nosebleeds, severe anxiety. Treatment usually consists
of addition to or adjusting of oral medications and does not generally necessitate hospitalization.
Hypertensive Emergency - B/P is severely elevated (systolic > or = to 180 or diastolic > or = to 110) but can occur at lower levels especially in patients who did not previously have high B/P. There is usually associated organ damage. Symptoms may
include: memory loss, LOC, CVA, LA, angina, renal failure, pulmonary edema. Generally requires more aggressive treatment and a hospitalization.
Hypertensive Crisis - an acute elevation in B/P that can lead to organ damage. Broad term that is further differentiated to include urgency or emergency based on presence of organ damage.
Other (please specify)
Use of terms such as suspected, likely, concern for, or probable (associated with a specific diagnosis that is being evaluated, monitored, or treated as if it exists) are acceptable and can be coded in the inpatient setting, when documented at the
time of discharge.
Thank you,
Fred Barreto RN
CDI Specialist
Please use your independent medical judgment in providing your response.
[2024-12-01] MEDS: COMPAZINE 10 MG IV (15:24)
[2024-12-02 03:39] VITALS: BP 113/77
[2024-12-02] MEDS: ZOFRAN 4 MG IV ×2 (04:48→11:41)
[2024-12-02] MEDS: COMPAZINE 10 MG IV ×2 (05:59→18:26)
[2024-12-02 06:00] VITALS: BP 150/99
[2024-12-02 07:00] VITALS: BP 158/117
[2024-12-02 07:32] LABS: % Basophils 0.7 % (0-2); % Eosinophils 0.8 % (0-6); % Immature Granulocytes 0.4 % (0-0.5); % Lymphocytes 24.4 % (20.5-51.1); % Monocytes 6.9 % (1.7-9.3); % Neutrophils 66.8 % (42.2-75.2); Absolute Basophils 0.1 10^3/uL (0-0.2); Absolute Eosinophils 0.1 10^3/uL (0-0.7); Absolute Lymphocytes 2.2 10^3/uL (1.2-3.4); Absolute Monocytes 0.6 10^3/uL (0.1-0.6); Absolute Neutrophils 6.1 10^3/uL (1.4-6.5); Hematocrit 44.3 % (37.0-47.0); Hemoglobin 15.4 g/dL (12.0-16.0); Mean Corp Hgb Conc. 34.8 g/dL (33.0-37.0); Mean Corpuscular Hgb 31.8 pg (27.0-31.0); Mean Corpuscular Volume 91.3 fL (81.0-99.0); Mean Platelet Volume 10.3 fL (7.4-10.4); Nucleated Red Blood Cells % 0 %; Platelet Count 268 10^3/uL (130-400); Red Blood Cell Count 4.85 10^6/uL (4.20-5.40); Red Cell Dist. Width 13.1 % (11.5-14.5); White Blood Cell Count 9.1 10^3/uL (4.8-10.8)
[2024-12-02] MEDS: APRESOLINE 10 MG IV (08:12)
[2024-12-02 08:13] LABS: ALT (SGPT) 45 U/L (0-35); AST (SGOT) 46 U/L (14-36); Alkaline Phosphatase 143 U/L (38-126); Blood Urea Nitrogen 18 mg/dl (7-17); Calcium 9.5 mg/dl (8.4-10.2); Carbon Dioxide 17 mmol/L (22-30); Chloride 100 mmol/L (98-107); Estimated Creatinine Clearance 66 ml/min; Glucose 105 mg/dl (70-99); Potassium 3.3 mmol/L (3.5-5.1); Sodium 134 mmol/L (135-145); Total Bilirubin 1.6 mg/dl (0.2-1.3); Total Protein 7.7 g/dl (6.3-8.2); eGFR 55.49
[2024-12-02] MEDS: NSS with KCL 40 MEQ 1000 IV (09:50)
[2024-12-02] MEDS: EFFEXOR XR 75 MG PO (12:42)
[2024-12-02] MEDS: PROTONIX 40 MG PO (12:42)
[2024-12-02] MEDS: ABILIFY 10 MG PO (12:42)
[2024-12-02] MEDS: PROCARDIA XL (EXTENDED RELEASE) 60 MG PO (12:42)
[2024-12-02] MEDS: TOPROL XL 50 MG PO (12:43)
[2024-12-02] MEDS: EFFEXOR XR 150 MG PO (12:43)
--- NOTE | 2024-12-02 13:37 | CM ---
Plan for pt is home w/ no needs
--- NOTE | 2024-12-02 14:54 | W.PN.HOSP.TC ---
Addendum entered and electronically signed by Shantel Corral MD 12/02/24 15:18:
I saw and evaluated the patient. I reviewed the resident�s note and agree with findings and plan as documented in the resident�s note.
A/P:
# Intractable nausea and vomiting, ddx include side effect of Zepbound, vs gastroparesis, vs cyclic vomiting syndrome/cannabis hyperemesis syndrome
Mild reactive leukocytosis has resolved
CT AP largely unrevealing: small hiatal hernia. Mild gastric distention. Mild circumferential wall thickening throughout most of the colon. SEVERE DIFFUSE HEPATIC STEATOSIS
Cont clears and advance diet as tolerated
Zofran PRN for nausea
Cont trial of hot shower and lidocaine cream to apply over anterior abdomen for N/V
noted UDS positive for benzodiazepines (patient received Ativan during her hospital stay), marijuana.
# NORBERT, likely prerenal from nausea/vomiting
Serum creatinine 1.2 today, from baseline 0.8
Restart IVF
# Hypokalemia
# Mild hyponatremia
IVF with potassium
# Mild transaminitis likely from hepatic steatosis, resolved
# Hypertension
continue metoprolol, nifedipine
IV hydralazine as needed
# Depression
mood stable
continue aripiprazole, venlafaxine
# cannabinoid hyperemesis
patient last used 2 weeks ago
encourage cessation
Code Status: Full code
DVT Prophylaxis: SCDs
Original Note:
Today's Communication/Plan
-
Continue supportive care
Assessment / Plan
Assessment / Plan
49-year-old for female, with past medical history of hypertension, hyperlipidemia, cannabinoid hyperemesis syndrome and depression admitted for persistent nausea and vomiting after she started taking Zepbound.
Impression/plan
#Intractable nausea and vomiting
Likely from side effect of Zepbound, gastroparesis versus cannabis hyperemesis syndrome
Leukocytosis resolved, patient is afebrile, no diarrhea, will monitor.
CT abdomen pelvis�11/29/2024�
Small hiatal hernia.Mild gastric distention without evidence for obstruction. Mild circumferential wall thickening throughout most of the colon. Diagnostic possibilities are (1) a mild colitis or (2) under distention of the colonic lumen.SEVERE
DIFFUSE HEPATIC STEATOSIS.Small intramural uterine leiomyoma.Severe discogenic degenerative disease at L5/S1.
IV fluids
Advance diet as tolerated
Stop Reglan, concern for dyskinesias. ondansetron as needed.
Compazine as needed
Lidocaine cream on the abdomen
Hot shower
Urine drug screen positive for benzodiazepines (patient received Ativan during her hospital stay), marijuana.
#Hypokalemia
Potassium 3.3 today
Repleted
Check BMP a.m.
#Mild transaminitis
Likely from hepatic steatosis
Will monitor
#Hypertension
continue metoprolol, and nifedipine
Hydralazine as needed with holding parameters
#Depression
continue aripiprazole, and venlafaxine
#cannabinoid hyperemesis
patient last used 2 weeks ago
encourage cessation
Code Status: Full code
DVT Prophylaxis: SCDs
Anticipated Discharge: 24 - 48 hours
Subjective/Interval History
-
Date of Service: December 02, 2024
Patient is not able to tolerate clear liquids, still persistent nausea/vomiting.
Objective Data
-
Labs:
Laboratory Results
12/02/24
06:32
WBC 9.1
Hgb 15.4
Hct 44.3
Plt Count 268
Sodium 134 L
Potassium 3.3 L
Chloride 100
Carbon Dioxide 17 L
BUN 18 H
Creatinine 1.2 H
Glucose 105 H
Calcium 9.5
Total Bilirubin 1.6 H
AST 46 H
ALT 45 H
Alkaline Phosphatase 143 H
Vital Signs:
Vital Signs
Temp Pulse Resp BP Pulse Ox
98.1 F 104 18 187/103 96
12/02/24 07:00 12/02/24 07:00 12/02/24 07:00 12/02/24 08:12 12/02/24 07:00
I&O
12/01/24 12/02/24 12/03/24
06:59 06:59 06:59
Intake Total 2920 / 2920 2320 / 2320
Balance 2920 / 2920 2320 / 2320
Physical Exam
-
General: Well Developed and Well Nourished
HEENT: Normocephalic and Atraumatic
Respiratory: Clear to Auscultation
Cardiac: Regular Rhythm and S1/S2
GI: Soft, Nontender, Nondistended and Normal Bowel Sounds
Skin: Warm and Dry
Neuro: Awake, Alert, Oriented and AO x 3
Psych: Calm
[2024-12-02 15:54] VITALS: BP 176/114
[2024-12-02 18:36] VITALS: BP 101/67
[2024-12-02] MEDS: NSS (PRESERVATIVE FREE) 0.5 ML IV (21:32)
[2024-12-02] MEDS: ATIVAN 1 MG IV (21:33)
[2024-12-02] MEDS: FLUSH (NSS) 1 FLUSH IV (21:34)
[2024-12-02 23:00] VITALS: BP 105/57
[2024-12-03 07:09] VITALS: BP 131/74
[2024-12-03] MEDS: ABILIFY 10 MG PO (07:44)
[2024-12-03] MEDS: PROTONIX 40 MG PO (07:44)
[2024-12-03] MEDS: PROCARDIA XL (EXTENDED RELEASE) 60 MG PO (07:44)
[2024-12-03] MEDS: TOPROL XL 50 MG PO (07:44)
[2024-12-03] MEDS: EFFEXOR XR 75 MG PO (07:44)
[2024-12-03] MEDS: EFFEXOR XR 150 MG PO (07:44)
[2024-12-03 08:11] LABS: ALT (SGPT) 41 U/L (0-35); AST (SGOT) 38 U/L (14-36); Albumin 4.1 g/dl (3.5-5.0); Alkaline Phosphatase 106 U/L (38-126); Blood Urea Nitrogen 19 mg/dl (7-17); Calcium 8.9 mg/dl (8.4-10.2); Carbon Dioxide 25 mmol/L (22-30); Chloride 101 mmol/L (98-107); Estimated Creatinine Clearance 73 ml/min; Glucose 92 mg/dl (70-99); Sodium 136 mmol/L (135-145); Total Protein 6.5 g/dl (6.3-8.2); eGFR > 60.00
[2024-12-03 08:21] LABS: % Basophils 0.9 % (0-2); % Eosinophils 1.7 % (0-6); % Immature Granulocytes 0.3 % (0-0.5); % Lymphocytes 36.2 % (20.5-51.1); % Monocytes 8.2 % (1.7-9.3); % Neutrophils 52.7 % (42.2-75.2); Absolute Basophils 0.1 10^3/uL (0-0.2); Absolute Eosinophils 0.1 10^3/uL (0-0.7); Absolute Lymphocytes 2.8 10^3/uL (1.2-3.4); Absolute Monocytes 0.6 10^3/uL (0.1-0.6); Absolute Neutrophils 4.1 10^3/uL (1.4-6.5); Hematocrit 41.3 % (37.0-47.0); Hemoglobin 13.9 g/dL (12.0-16.0); Mean Corp Hgb Conc. 33.7 g/dL (33.0-37.0); Mean Corpuscular Hgb 31.7 pg (27.0-31.0); Mean Corpuscular Volume 94.1 fL (81.0-99.0); Mean Platelet Volume 9.7 fL (7.4-10.4); Nucleated Red Blood Cells % 0 %; Platelet Count 260 10^3/uL (130-400); Red Blood Cell Count 4.39 10^6/uL (4.20-5.40); Red Cell Dist. Width 13.2 % (11.5-14.5); White Blood Cell Count 7.8 10^3/uL (4.8-10.8)
--- NOTE | 2024-12-03 09:40 | W.PN.HOSP.TC ---
Today's Communication/Plan
-
see A/P
Assessment / Plan
Assessment / Plan
A/P:
# Intractable nausea and vomiting, ddx include side effect of Zepbound, vs gastroparesis, vs cyclic vomiting syndrome/cannabis hyperemesis syndrome
Mild reactive leukocytosis has resolved
CT AP largely unrevealing: small hiatal hernia. Mild gastric distention. Mild circumferential wall thickening throughout most of the colon. SEVERE DIFFUSE HEPATIC STEATOSIS
advance clear to full liquid and ADAT
Zofran PRN for nausea
Cont trial of hot shower and lidocaine cream to apply over anterior abdomen for N/V
noted UDS positive for benzodiazepines (patient received Ativan during her hospital stay), marijuana.
# NORBERT, likely prerenal from nausea/vomiting
Serum creatinine 1.1 today, from baseline 0.8
# Hypokalemia
# Mild hyponatremia
s/p IVF with potassium
# Mild transaminitis likely from hepatic steatosis
# Hypertension
continue metoprolol, nifedipine
IV hydralazine as needed
# Depression
mood stable
continue aripiprazole, venlafaxine
# cannabinoid hyperemesis
patient last used 2 weeks ago
encourage cessation
Code Status: Full code
DVT Prophylaxis: SCDs
Anticipated Discharge: Within 24 hours
Subjective/Interval History
-
Date of Service: December 03, 2024
Objective Data
-
Labs:
Laboratory Results
12/03/24
07:25
WBC 7.8
Hgb 13.9
Hct 41.3
Plt Count 260
Sodium 136
Potassium 4.0
Chloride 101
Carbon Dioxide 25
BUN 19 H
Creatinine 1.1 H
Glucose 92
Calcium 8.9
Total Bilirubin 1.0
AST 38 H
ALT 41 H
Alkaline Phosphatase 106
Vital Signs:
Vital Signs
Temp Pulse Resp BP Pulse Ox
36.4 C 71 18 131/74 95
12/03/24 07:09 12/03/24 07:09 12/03/24 07:09 12/03/24 07:09 12/03/24 07:09
I&O
12/02/24 12/03/24 12/04/24
06:59 06:59 06:59
Intake Total 2320 / 2320 600 / 600
Balance 2320 / 2320 600 / 600
Review of Systems
-
Abdomen/GI: Denies Abdominal Pain (resolved )
Physical Exam
-
General: Well Developed, Well Nourished, No Apparent Distress, Comfortable, Conversant and Obese
HEENT: Normocephalic and Atraumatic
Respiratory: Clear to Auscultation and Non Labored Respirations; Negative Accessory Resp Muscle Use
Cardiac: Regular Rhythm and S1/S2
GI: Soft, Nontender, Nondistended and Normal Bowel Sounds
Skin: Warm and Dry
Neuro: Awake, Alert, Oriented and AO x 3
Psych: Calm and Intact Judgement/Insight
Data Reviewed
-
Labs: Labs Reviewed by me
[2024-12-03 15:33] VITALS: BP 120/69
[2024-12-03 16:33] VITALS: BP 120/69
--- NOTE | 2024-12-03 19:06 | PTCARENOTE ---
Pt tolerated full liquid lunch and low res dinner without difficulty. Denies nausea or abd pain.
[2024-12-03] MEDS: MELATONIN 5 MG PO (22:04)
[2024-12-03 23:00] VITALS: BP 122/85
[2024-12-04 07:06] LABS: Hematocrit 40.1 % (37.0-47.0); Hemoglobin 13.6 g/dL (12.0-16.0); Mean Corp Hgb Conc. 33.9 g/dL (33.0-37.0); Mean Corpuscular Hgb 31.9 pg (27.0-31.0); Mean Corpuscular Volume 94.1 fL (81.0-99.0); Mean Platelet Volume 9.8 fL (7.4-10.4); Platelet Count 212 10^3/uL (130-400); Red Blood Cell Count 4.26 10^6/uL (4.20-5.40); Red Cell Dist. Width 12.9 % (11.5-14.5); White Blood Cell Count 6.2 10^3/uL (4.8-10.8)
[2024-12-04 07:24] VITALS: BP 128/81
[2024-12-04 07:28] LABS: ALT (SGPT) 46 U/L (0-35); AST (SGOT) 38 U/L (14-36); Alkaline Phosphatase 103 U/L (38-126); Blood Urea Nitrogen 17 mg/dl (7-17); Calcium 9.1 mg/dl (8.4-10.2); Carbon Dioxide 28 mmol/L (22-30); Chloride 100 mmol/L (98-107); Direct Bilirubin 0.1 mg/dl (0.0-0.4); Estimated Creatinine Clearance 73 ml/min; Glucose 92 mg/dl (70-99); Magnesium 1.8 mg/dl (1.6-2.3); Potassium 3.9 mmol/L (3.5-5.1); Sodium 135 mmol/L (135-145); Total Bilirubin 0.6 mg/dl (0.2-1.3); Total Protein 6.4 g/dl (6.3-8.2); eGFR > 60.00
[2024-12-04] MEDS: EFFEXOR XR 75 MG PO (08:37)
[2024-12-04] MEDS: EFFEXOR XR 150 MG PO (08:38)
[2024-12-04] MEDS: PROTONIX 40 MG PO (08:38)
[2024-12-04] MEDS: PROCARDIA XL (EXTENDED RELEASE) 60 MG PO (08:38)
[2024-12-04] MEDS: TOPROL XL 50 MG PO (08:38)
[2024-12-04] MEDS: ABILIFY 10 MG PO (08:38)
--- NOTE | 2024-12-04 09:10 | W.PN.HOSP.TC ---
Addendum entered and electronically signed by Shantel Corral MD 12/04/24 13:00:
total DC time 36 min
Original Note:
Today's Communication/Plan
-
DC today
Assessment / Plan
Assessment / Plan
A/P:
# Intractable nausea and vomiting, ddx include side effect of Zepbound, vs gastroparesis, vs cyclic vomiting syndrome/cannabis hyperemesis syndrome
Mild reactive leukocytosis has resolved
CT AP largely unrevealing: small hiatal hernia. Mild gastric distention. Mild circumferential wall thickening throughout most of the colon. SEVERE DIFFUSE HEPATIC STEATOSIS
advance diet to low residue and pt tolerated well
Zofran PRN for nausea
Cont trial of hot shower and lidocaine cream to apply over anterior abdomen for N/V
noted UDS positive for benzodiazepines (patient received Ativan during her hospital stay), marijuana.
# NORBERT, likely prerenal from nausea/vomiting
Serum creatinine 1.1 today, from baseline 0.8
Can repeat BMP outpt with result to PCP
# Hypokalemia, resolved
# Mild hyponatremia
s/p IVF with potassium
# Mild transaminitis likely from hepatic steatosis
# Hypertension
continue metoprolol, nifedipine
IV hydralazine as needed
# Depression
mood stable
continue aripiprazole, venlafaxine
# cannabinoid hyperemesis
patient last used 2 weeks ago
encourage cessation
Code Status: Full code
DVT Prophylaxis: SCDs
Anticipated Discharge: Today
Subjective/Interval History
-
Date of Service: December 04, 2024
Objective Data
-
Labs:
Laboratory Results
12/04/24
06:54
WBC 6.2
Hgb 13.6
Hct 40.1
Plt Count 212
Sodium 135
Potassium 3.9
Chloride 100
Carbon Dioxide 28
BUN 17
Creatinine 1.1 H
Glucose 92
Calcium 9.1
Total Bilirubin 0.6
AST 38 H
ALT 46 H
Alkaline Phosphatase 103
Vital Signs:
Vital Signs
Temp Pulse Resp BP Pulse Ox
36.3 C 71 18 128/81 95
12/04/24 07:24 12/04/24 07:24 12/04/24 07:24 12/04/24 07:24 12/04/24 07:24
I&O
12/03/24 12/04/24 12/05/24
06:59 06:59 06:59
Intake Total 600 / 600 720 / 720
Balance 600 / 600 720 / 720
Review of Systems
-
Abdomen/GI: Denies Abdominal Pain (resolved )
Physical Exam
-
General: Well Developed, Well Nourished, No Apparent Distress, Comfortable, Conversant and Obese
HEENT: Normocephalic and Atraumatic
Respiratory: Clear to Auscultation and Non Labored Respirations; Negative Accessory Resp Muscle Use
Cardiac: Regular Rhythm and S1/S2
GI: Soft, Nontender, Nondistended and Normal Bowel Sounds
Skin: Warm and Dry
Neuro: Awake, Alert, Oriented and AO x 3
Psych: Calm and Intact Judgement/Insight
Data Reviewed
-
Labs: Labs Reviewed by me
--- NOTE | 2024-12-04 10:25 | CM ---
Patient seen at bedside.
Discharge today to home.
No needs
Patient has her car here
PLAN: home, no needs
transport self
[2024-12-04] MEDS: AFLURIA (36 mos+) 2024-2025 FORMULA 0.5 ML IM (11:13)
[2024-12-04 11:33] VITALS: BP 133/71
--- NOTE | 2024-12-04 12:38 | W.DCSUMMARY ---
Discharge Summary
Discharge Data
Date of Admission: 11/29/24
Date of Discharge: 12/04/24
-
Pending Results: No
Hospital Course
Principal Diagnosis:
Intractable nausea and vomiting, likely due to cyclic vomiting syndrome/cannabis hyperemesis syndrome versus Zepbound side effect
Prerenal acute kidney injury, resolved
Resolved hypokalemia and hyponatremia
Mild transaminitis likely from hepatic steatosis
Chronic Diagnoses:�
Hypertension, on metoprolol and nifedipine
Depression, mood stable, on aripiprazole, venlafaxine
cannabinoid hyperemesis
Consultations:�
None
Procedures:�
None
Clinical course:�
This is a 49-year-old female, with past medical history as stated above, who presented with nausea and vomiting.
Problem 1:
Intractable nausea and vomiting, likely due to cyclic vomiting syndrome/cannabis hyperemesis syndrome versus Zepbound side effect.
She had mild reactive leukocytosis on admission which has resolved.
Her UDS was positive for benzodiazepines (patient received Ativan during her hospital stay), and marijuana.
Her CT AP was largely unrevealing: noted small hiatal hernia. Mild gastric distention. Mild circumferential wall thickening throughout most of the colon. SEVERE DIFFUSE HEPATIC STEATOSIS
She received symptomatic treatment such as Zofran as needed for nausea/vomiting, hot shower which improved her nausea and vomiting, and lidocaine cream to apply to her anterior abdomen for the cyclic vomiting which has helped.
Diet was slowly advanced to solid and she was able to tolerate prior to discharge.
Problem 2:
Prerenal acute kidney injury, resolved after IVF.
Hypokalemia and hyponatremia, also resolved after repletion and IVF.
Problem 3:
Mild transaminitis likely from hepatic steatosis.
Her CT abdomen pelvis was largely unrevealing, noted severe diffuse hepatic steatosis.
She can follow-up LFT with her PCP outpatient.
As for the rest of her medical problems, they were stable during her hospital stay.
Discharge Plan
-
Patient Disposition: Home (Routine Discharge)
Discharge Diagnosis/Procedures: Intractable nausea and vomiting, differential include side effect of Zepbound versus cyclic vomiting syndrome/cannabis hyperemesis syndrome;
Mild LFT elevation
Condition: Good
Diet: As tolerated and Low Residue
Additional Diets: low residue diet (low roughage diet) for 1 week
Activity: As tolerated
Driving Restrictions: As prior to admission
Blood Work: CMP in 1 week, result to your PCP
Referrals:
Law Bush MD [Family Provider] - in less than 1 week
Additional Discharge Medication Instructions: Avoid Zepbound for now
Prescriptions:
Continued
nifedipine 60 MG tablet extended release
60 mg PO DAILY
venlafaxine 75 MG capsule,extended release 24hr
75 mg PO DAILY Qty: 30 0RF
Patient Comments:
12/19/2020: taken w/ 150mg= 225mg
venlafaxine [Effexor XR] 150 MG capsule,extended release 24hr
150 mg PO DAILY Qty: 30 0RF
Patient Comments:
12/19/2020: taken w/ 75mg= 225mg
metoprolol succinate 50 MG tablet extended release 24 hr
50 mg PO DAILY
pantoprazole [Protonix] 40 mg tablet,delayed release (DR/EC)
40 mg PO DAILY Qty: 30 0RF
dexmethylphenidate [Focalin] 10 mg Tablet
10 mg PO DAILY
aripiprazole [Abilify] 10 mg Tablet
10 mg PO DAILY
Discharge Orders:
Discharge Patient (As Directed); Ordered 12/04/24
Ordered By: Shantel Corral
Discharge Date and Time
Discharge Date/Time: 12/04/24 11:41
Print Language: ITALIAN
== END 2024-12-04 11:41 | disposition home or self-care (01) | DRG 394 ==
LOC: 4 WEST ACU 16:57
PROVIDERS: Nurse Practitioner Family; Physician Assistant Medical; Student in an Organized Health Care Education/Training Program; ADMITTING PHYSICIAN Internal Medicine; ATTENDING PHYSICIAN Internal Medicine; EMERGENCY PHYSICIAN Emergency Medicine; FAMILY PHYSICIAN Family Medicine
PROC: 3E02340 Introduction of Influenza Vaccine into Muscle, Percutaneous Approach (ICD-10-PCS; 2024-12-04)
DX: R11.15 Cyclical vomiting syndrome unrelated to migraine (principal); E87.1 Hypo-osmolality and hyponatremia; N17.9 Acute kidney failure, unspecified; K31.84 Gastroparesis; F12.90 Cannabis use, unspecified, uncomplicated; K44.9 Diaphragmatic hernia without obstruction or gangrene; Z79.899 Other long term (current) drug therapy; T46.6X5A Adverse effect of antihyperlipidemic and antiarteriosclerotic drugs, initial encounter; E87.6 Hypokalemia; K76.0 Fatty (change of) liver, not elsewhere classified; F32.A Depression, unspecified; K31.89 Other diseases of stomach and duodenum; E78.5 Hyperlipidemia, unspecified; I10 Essential (primary) hypertension; D25.1 Intramural leiomyoma of uterus; G43.909 Migraine, unspecified, not intractable, without status migrainosus; K21.9 Gastro-esophageal reflux disease without esophagitis; N80.9 Endometriosis, unspecified; Z23 Encounter for immunization
CPT/HCPCS: 74176; 80048; 80053; 80306; 80307; 82248; 83690; 83735; 84703; 85025; 85027; 90686; 93005; 96361; 96374; 96375; 96376; 99285; G0008

== ENCOUNTER → 2024-12-17 09:09 | Outpatient (REF) | payer OTHER, SELFPAY | LOC: WDC 09:09 | PROVIDERS: ATTENDING PHYSICIAN Nurse Practitioner | DX: Z12.31 Encounter for screening mammogram for malignant neoplasm of breast (principal) | CPT/HCPCS: 77063; 77067 ==

== ENCOUNTER 2025-03-03 22:10 | Inpatient (IN) | payer OTHER, SELFPAY ==
[2025-03-03] VITALS (14 sets, daily range): BP systolic 90–183; BP diastolic 68–133; BMI 37.8
[2025-03-03 17:01] LABS: % Basophils 0.4 % (0-2); % Immature Granulocytes 0.7 % (0-0.5); % Lymphocytes 7.8 % (20.5-51.1); % Monocytes 4.2 % (1.7-9.3); % Neutrophils 86.9 % (42.2-75.2); Absolute Basophils 0.1 10^3/uL (0-0.2); Absolute Immature Granulocytes 0.1 10^3/uL (0-0.05); Absolute Lymphocytes 1.4 10^3/uL (1.2-3.4); Absolute Monocytes 0.8 10^3/uL (0.1-0.6); Absolute Neutrophils 15.9 10^3/uL (1.4-6.5); Hematocrit 42.8 % (37.0-47.0); Hemoglobin 15.3 g/dL (12.0-16.0); Mean Corp Hgb Conc. 35.7 g/dL (33.0-37.0); Mean Corpuscular Volume 86.8 fL (81.0-99.0); Mean Platelet Volume 10.5 fL (7.4-10.4); Nucleated Red Blood Cells % 0 %; Platelet Count 310 10^3/uL (130-400); Red Blood Cell Count 4.93 10^6/uL (4.20-5.40); Red Cell Dist. Width 12.9 % (11.5-14.5); White Blood Cell Count 18.3 10^3/uL (4.8-10.8)
--- NOTE | 2025-03-03 17:09 | ED.GENMED ---
History of Present Illness
<Lynda Eastman [employer] - Last Filed: 03/04/25 09:16>
General
Chief Complaint: Vomiting Blood
Source: patient
Exam Limitations: none
Time Seen by Provider: 03/03/25 17:08
Nursing documentation reviewed up to this point in time: agreed with
History of Present Illness
History of Present Illness:
49 yo female with history of migraines, HTN,, GERD, endometriosis, cannabinoid hyperemesis, anxiety/depression present via EMS for nausea and vomiting. Pt states she woke at 4 a.m. not feeling well. During initial assessment at 5:05 p.m. Pt noted to
have significant expressive aphasia. Intermittently she is able to tell me she feels nauseous and has been vomiting, last emesis 2-3 hours ago. She denies headache, neck pain, denies recent falls. Denies CP, or abdominal pain. States 'a little'
when asked if she felt SOB. She feels the urge to defecate and 'I think I just went.'
Past History
<Lynda Eastman, [employer]OR - Last Filed: 03/04/25 09:16>
Past History
ED Past Medical History: GERD, HTN, Psychiatric (Anxiety, depression, Panic disorder) and Other (Migraine HAs, enteritis, Cyclical vomiting, Gastritis, Colitis, DVT, Endometriosis, )
ED Past Surgical History: and Other (Rhinoplasty/sinus surgery)
Social History
Tobacco: Non-smoker
Alcohol: Occasional
Drug: Marijuana (daily)
Personal:
Living: with family
Employment: Employed
Family History
Family History: Other; Negative Diabetes, Hypertension or CAD
Review of Systems
<Lynda Eastman, [employer]STING [employer]OR - Last Filed: 03/04/25 09:16>
Review of Systems
Allergies reviewed?: Yes
All Other Systems: ROS reviewed and negative except as documented in HPI and ROS
Constitutional: Denies fever
Respiratory: Reports trouble breathing (feels 'a little' short of breath)
Cardiac: Denies chest pain, diaphoresis, palpitations or syncope
ABD/GI: Reports nausea; Denies abdominal pain
: Denies dysuria, frequency or difficulty voiding
Musculoskeletal: Reports no symptoms
Skin: Reports no symptoms
Neurological: Reports other (expressive aphasia); Denies dizzy, headache, weakness or numbness
Phy Exam
<Lynda Eastman, HAR[employer]STING [employer]OR - Last Filed: 03/04/25 09:16>
Physical Exam
Physical Exam:
GENERAL: No acute distress. A&Ox3.
CONSTITUTIONAL: Afebrile.
EYES: clear, conjunctivae normal
ENMT: dry mucus membranes, Pharynx nl
RESPIRATORY: Regular respirations, nonlabored, lungs clear.
CARDIOVASCULAR: Regular rate and rhythm, no murmurs, no rubs.
GI: Soft, nontender, normal BS
MUSCULOSKELETAL: Moves with ease. Well perfused. No edema
SKIN: Warm, dry, pale
PSYCH: Anxious mood and affect. Well kept, interactive
NEUROLOGIC: Awake, alert and oriented. Frequent expressive aphasia. Speech clear. Strength equal throughout.
Course
<Lynda Eastman, HAR[employer]STING [employer]OR - Last Filed: 03/04/25 09:16>
Orders/Labs/Results
Orders:
Orders
03/03/25 16:42
EKG [Electrocardiogram (*1)] Urgent
Reason for Study: Shortness of Breath
03/03/25 16:43
EKG- Treatment ONCE
03/03/25 16:52
Complete Blood Count/With Diff Urgent
Comprehensive Metabolic Panel Urgent
03/03/25 17:18
CT HEAD STROKE ALERT W/o Cont Urgent
Comment:
Reason For Exam: acute expressive aphasia
CT HEAD/NECK ANG STROKE ALERT Urgent
Comment:
Reason For Exam: acute expressive aphasia
Ondansetron Injectable [Zofran] 4 mg IV NOW STA
03/03/25 17:19
Ondansetron Injectable [Zofran] 4 mg .ROUTE .STK-MED ONE
03/03/25 17:47
Lorazepam [Ativan] 1 mg IV NOW STA
03/03/25 18:13
0.9% Sodium Chloride 1000 ml [Nss] 1,000 ml IV BOLUS
03/03/25 18:23
0.9% Sodium Chloride 1000 ml [Nss] 1,000 ml IV BOLUS
Diphenhydramine [Benadryl] 50 mg IV NOW STA
Prochlorperazine [Compazine] 10 mg IV NOW STA
03/03/25 20:14
0.9% Sodium Chloride 1000 ml [Nss] 1,000 ml IV BOLUS
03/03/25 20:34
Basic Metabolic Panel Urgent
Lactic Acid Q4H
Comment: CANCEL 2nd LACTIC ACID IF 1st LACTIC ACID IS LESS THAN 2
Blood Culture Q30M
SANIYA Source: Blood/Venous
Specimen Description:
Blood Culture Q30M
SANIYA Source: Blood/Venous
Specimen Description:
03/03/25 21:48
Admit/Transfer Patient As Directed
Co-Sign Provider:
Level of Care: Inpatient admission
Assign to:: Medical/Surgical
Physician / Group: best
Diagnosis: hyperemesis syndrome
Reason for Hospitalization: hyperemesis syndrome
Expected length of stay greater than two midnights?: Yes
ELOS- Estimated Length of Stay in days: 3
I certify the patient meets the requirements for IP care: Yes
03/03/25 21:49
PRN Pain Medication Management As Directed
May give lesser potent ordered pain med per pt: Yes
preference::
Protocol:: Medication orders for pain may be administered in a
manner that supports deferring to patient preference
when the pt is:
- Requesting an ordered lesser potent pain medication.
Least to most potent pain medications are defined
as: acetaminophen < NSAID < tramadol < opioids
(morphine, oxycodone, hydromorphone).
- Requesting a lesser dose of the same medication IF
ORDERED.
- Requesting a less intrusive route of administration
if both routes are prescribed by the provider (PO <
IV).
03/03/25 21:51
Code Status As Directed
Resuscitation Status: Full Code
03/03/25 21:58
Procalcitonin Urgent
PCT Algorithmm Indication: Sepsis
03/03/25 22:00
Flush (0.9% Sodium Chloride) [Flush (Nss)] See Dose Instructions IV PER PROTOCOL
03/04/25 00:46
0.9% Sodium Chloride 1000 ml [Nss] 1,000 ml IV 140 mls/hr
Acetaminophen [Tylenol] 650 mg PO Q4HPRN PRN
Bisacodyl [Dulcolax] 10 mg RECTAL [id number] PRN
Docusate W/Senna [Senokot-S] 1 tablet PO BIDPRN PRN
Famotidine [Pepcid] 40 mg PO HS
Metoclopramide [Reglan] 10 mg IV Q8H
Ondansetron Injectable [Zofran] 4 mg IV Q6HPRN PRN
Polyethylene Glycol Powder [Miralax] 17 grams PO DAILYPRN PRN
03/04/25 00:46
Activity As Directed
Activity Level: As Tolerated
Pneumatic Compression Sleeves As Directed
Type: Knee high
Vital Signs As Directed
Frequency: Per unit guidelines
DX Deep Vein Thrombosis Video Routine
03/04/25 01:19
Lactic Acid Q4H
Comment: CANCEL 2nd LACTIC ACID IF 1st LACTIC ACID IS LESS THAN 2
03/04/25 Breakfast
Clear Liquid
At Your Request: Full Participation
03/04/25 06:53
Basic Metabolic Panel IN AM
Complete Blood Count/No Diff IN AM
03/04/25 08:00
Aripiprazole [Abilify] 10 mg PO DAILY
Metoprolol Xl [Toprol Xl] 50 mg PO DAILY
NIFEdipine EXTENDED RELEASE [Procardia Xl (Extended Release)] 60 mg PO DAILY
Pantoprazole [Protonix] 40 mg PO DAILY
Venlafaxine Extended Release [Effexor Xr] 225 mg PO DAILY
03/05/25 06:28
Complete Blood Count/No Diff IN AM
03/06/25 06:00
Complete Blood Count/No Diff IN AM
Abnormal Lab Results
03/03/25 03/03/25 03/03/25
16:52 17:20 20:34
WBC 18.3 H 10^3/uL
(4.8-10.8)
MPV 10.5 H fL
(7.4-10.4)
Abs Immat Gran (auto) 0.1 H 10^3/uL
(0-0.05)
Absolute Neuts (auto) 15.9 H 10^3/uL
(1.4-6.5)
Absolute Monos (auto) 0.8 H 10^3/uL
(0.1-0.6)
Immature Gran % 0.7 H %
(0-0.5)
Neutrophils % 86.9 H %
(42.2-75.2)
Lymphocytes % 7.8 L %
(20.5-51.1)
Carbon Dioxide 11 L* mmol/L 20 L mmol/L
(22-30) (22-30)
BUN 18 H mg/dl
(7-17)
Creatinine 1.4 H mg/dL 1.2 H mg/dL
(0.6-1.0) (0.6-1.0)
Glucose 186 H mg/dl 154 H mg/dl
(70-99) (70-99)
Lactic Acid 2.3 H mmol/L
(0.7-2.0)
Calcium 10.6 H mg/dl
(8.4-10.2)
Total Bilirubin 1.4 H mg/dl
(0.2-1.3)
Alkaline Phosphatase 130 H U/L
(38-126)
Total Protein 9.0 H g/dl
(6.3-8.2)
Albumin 5.8 H g/dl
(3.5-5.0)
POC Glucose 134 H mg/dl
(70-99)
03/03/25 16:52
03/03/25 20:34
Vital Signs
Initial and Last Documented VS:
Initial Vital Signs
Pulse Resp BP Pulse Ox
109 28 135/100 100
03/03/25 16:42 03/03/25 16:42 03/03/25 16:42 03/03/25 16:42
Last Documented Vital Signs
Temp Pulse Resp BP Pulse Ox
98.1 F 88 18 160/106 96
03/05/25 07:00 03/05/25 07:00 03/05/25 07:00 03/05/25 07:00 03/05/25 07:00
<Bryce Garcia, DO - Last Filed: 03/03/25 20:26>
Orders/Labs/Results
Orders:
Orders
03/03/25 16:42
EKG [Electrocardiogram (*1)] Urgent
Reason for Study: Shortness of Breath
03/03/25 16:43
EKG- Treatment ONCE
03/03/25 16:52
Complete Blood Count/With Diff Urgent
Comprehensive Metabolic Panel Urgent
03/03/25 17:18
CT HEAD STROKE ALERT W/o Cont Urgent
Comment:
Reason For Exam: acute expressive aphasia
CT HEAD/NECK ANG STROKE ALERT Urgent
Comment:
Reason For Exam: acute expressive aphasia
Ondansetron Injectable [Zofran] 4 mg IV NOW STA
03/03/25 17:19
Ondansetron Injectable [Zofran] 4 mg .ROUTE .STK-MED ONE
03/03/25 17:47
Lorazepam [Ativan] 1 mg IV NOW STA
03/03/25 18:13
0.9% Sodium Chloride 1000 ml [Nss] 1,000 ml IV BOLUS
03/03/25 18:23
0.9% Sodium Chloride 1000 ml [Nss] 1,000 ml IV BOLUS
Diphenhydramine [Benadryl] 50 mg IV NOW STA
Prochlorperazine [Compazine] 10 mg IV NOW STA
03/03/25 20:14
0.9% Sodium Chloride 1000 ml [Nss] 1,000 ml IV BOLUS
03/03/25 20:34
Basic Metabolic Panel Urgent
Lactic Acid Q4H
Comment: CANCEL 2nd LACTIC ACID IF 1st LACTIC ACID IS LESS THAN 2
Blood Culture Q30M
SANIYA Source: Blood/Venous
Specimen Description:
Blood Culture Q30M
SANIYA Source: Blood/Venous
Specimen Description:
03/03/25 21:48
Admit/Transfer Patient As Directed
Co-Sign Provider:
Level of Care: Inpatient admission
Assign to:: Medical/Surgical
Physician / Group: best
Diagnosis: hyperemesis syndrome
Reason for Hospitalization: hyperemesis syndrome
Expected length of stay greater than two midnights?: Yes
ELOS- Estimated Length of Stay in days: 3
I certify the patient meets the requirements for IP care: Yes
03/03/25 21:49
PRN Pain Medication Management As Directed
May give lesser potent ordered pain med per pt: Yes
preference::
Protocol:: Medication orders for pain may be administered in a
manner that supports deferring to patient preference
when the pt is:
- Requesting an ordered lesser potent pain medication.
Least to most potent pain medications are defined
as: acetaminophen < NSAID < tramadol < opioids
(morphine, oxycodone, hydromorphone).
- Requesting a lesser dose of the same medication IF
ORDERED.
- Requesting a less intrusive route of administration
if both routes are prescribed by the provider (PO <
IV).
03/03/25 21:51
Code Status As Directed
Resuscitation Status: Full Code
03/03/25 21:58
Procalcitonin Urgent
PCT Algorithmm Indication: Sepsis
03/03/25 22:00
Flush (0.9% Sodium Chloride) [Flush (Nss)] See Dose Instructions IV PER PROTOCOL
03/04/25 00:46
0.9% Sodium Chloride 1000 ml [Nss] 1,000 ml IV 140 mls/hr
Acetaminophen [Tylenol] 650 mg PO Q4HPRN PRN
Bisacodyl [Dulcolax] 10 mg RECTAL [id number] PRN
Docusate W/Senna [Senokot-S] 1 tablet PO BIDPRN PRN
Famotidine [Pepcid] 40 mg PO HS
Metoclopramide [Reglan] 10 mg IV Q8H
Ondansetron Injectable [Zofran] 4 mg IV Q6HPRN PRN
Polyethylene Glycol Powder [Miralax] 17 grams PO DAILYPRN PRN
03/04/25 00:46
Activity As Directed
Activity Level: As Tolerated
Pneumatic Compression Sleeves As Directed
Type: Knee high
Vital Signs As Directed
Frequency: Per unit guidelines
DX Deep Vein Thrombosis Video Routine
03/04/25 01:19
Lactic Acid Q4H
Comment: CANCEL 2nd LACTIC ACID IF 1st LACTIC ACID IS LESS THAN 2
03/04/25 Breakfast
Clear Liquid
At Your Request: Full Participation
03/04/25 06:53
Basic Metabolic Panel IN AM
Complete Blood Count/No Diff IN AM
03/04/25 08:00
Aripiprazole [Abilify] 10 mg PO DAILY
Metoprolol Xl [Toprol Xl] 50 mg PO DAILY
NIFEdipine EXTENDED RELEASE [Procardia Xl (Extended Release)] 60 mg PO DAILY
Pantoprazole [Protonix] 40 mg PO DAILY
Venlafaxine Extended Release [Effexor Xr] 225 mg PO DAILY
03/05/25 06:28
Complete Blood Count/No Diff IN AM
03/06/25 06:00
Complete Blood Count/No Diff IN AM
Abnormal Lab Results
03/03/25 03/03/25 03/03/25
16:52 17:20 20:34
WBC 18.3 H 10^3/uL
(4.8-10.8)
MPV 10.5 H fL
(7.4-10.4)
Abs Immat Gran (auto) 0.1 H 10^3/uL
(0-0.05)
Absolute Neuts (auto) 15.9 H 10^3/uL
(1.4-6.5)
Absolute Monos (auto) 0.8 H 10^3/uL
(0.1-0.6)
Immature Gran % 0.7 H %
(0-0.5)
Neutrophils % 86.9 H %
(42.2-75.2)
Lymphocytes % 7.8 L %
(20.5-51.1)
Carbon Dioxide 11 L* mmol/L 20 L mmol/L
(22-30) (22-30)
BUN 18 H mg/dl
(7-17)
Creatinine 1.4 H mg/dL 1.2 H mg/dL
(0.6-1.0) (0.6-1.0)
Glucose 186 H mg/dl 154 H mg/dl
(70-99) (70-99)
Lactic Acid 2.3 H mmol/L
(0.7-2.0)
Calcium 10.6 H mg/dl
(8.4-10.2)
Total Bilirubin 1.4 H mg/dl
(0.2-1.3)
Alkaline Phosphatase 130 H U/L
(38-126)
Total Protein 9.0 H g/dl
(6.3-8.2)
Albumin 5.8 H g/dl
(3.5-5.0)
POC Glucose 134 H mg/dl
(70-99)
03/03/25 16:52
03/03/25 20:34
Vital Signs
Initial and Last Documented VS:
Initial Vital Signs
Pulse Resp BP Pulse Ox
109 28 135/100 100
03/03/25 16:42 03/03/25 16:42 03/03/25 16:42 03/03/25 16:42
Last Documented Vital Signs
Temp Pulse Resp BP Pulse Ox
98.1 F 88 18 160/106 96
03/05/25 07:00 03/05/25 07:00 03/05/25 07:00 03/05/25 07:00 03/05/25 07:00
<Juliana Banda [employer] - Last Filed: 03/05/25 14:09>
Orders/Labs/Results
Orders:
Orders
03/03/25 16:42
EKG [Electrocardiogram (*1)] Urgent
Reason for Study: Shortness of Breath
03/03/25 16:43
EKG- Treatment ONCE
03/03/25 16:52
Complete Blood Count/With Diff Urgent
Comprehensive Metabolic Panel Urgent
03/03/25 17:18
CT HEAD STROKE ALERT W/o Cont Urgent
Comment:
Reason For Exam: acute expressive aphasia
CT HEAD/NECK ANG STROKE ALERT Urgent
Comment:
Reason For Exam: acute expressive aphasia
Ondansetron Injectable [Zofran] 4 mg IV NOW STA
03/03/25 17:19
Ondansetron Injectable [Zofran] 4 mg .ROUTE .STK-MED ONE
03/03/25 17:47
Lorazepam [Ativan] 1 mg IV NOW STA
03/03/25 18:13
0.9% Sodium Chloride 1000 ml [Nss] 1,000 ml IV BOLUS
03/03/25 18:23
0.9% Sodium Chloride 1000 ml [Nss] 1,000 ml IV BOLUS
Diphenhydramine [Benadryl] 50 mg IV NOW STA
Prochlorperazine [Compazine] 10 mg IV NOW STA
03/03/25 20:14
0.9% Sodium Chloride 1000 ml [Nss] 1,000 ml IV BOLUS
03/03/25 20:34
Basic Metabolic Panel Urgent
Lactic Acid Q4H
Comment: CANCEL 2nd LACTIC ACID IF 1st LACTIC ACID IS LESS THAN 2
Blood Culture Q30M
SANIYA Source: Blood/Venous
Specimen Description:
Blood Culture Q30M
SANIYA Source: Blood/Venous
Specimen Description:
03/03/25 21:48
Admit/Transfer Patient As Directed
Co-Sign Provider:
Level of Care: Inpatient admission
Assign to:: Medical/Surgical
Physician / Group: best
Diagnosis: hyperemesis syndrome
Reason for Hospitalization: hyperemesis syndrome
Expected length of stay greater than two midnights?: Yes
ELOS- Estimated Length of Stay in days: 3
I certify the patient meets the requirements for IP care: Yes
03/03/25 21:49
PRN Pain Medication Management As Directed
May give lesser potent ordered pain med per pt: Yes
preference::
Protocol:: Medication orders for pain may be administered in a
manner that supports deferring to patient preference
when the pt is:
- Requesting an ordered lesser potent pain medication.
Least to most potent pain medications are defined
as: acetaminophen < NSAID < tramadol < opioids
(morphine, oxycodone, hydromorphone).
- Requesting a lesser dose of the same medication IF
ORDERED.
- Requesting a less intrusive route of administration
if both routes are prescribed by the provider (PO <
IV).
03/03/25 21:51
Code Status As Directed
Resuscitation Status: Full Code
03/03/25 21:58
Procalcitonin Urgent
PCT Algorithmm Indication: Sepsis
03/03/25 22:00
Flush (0.9% Sodium Chloride) [Flush (Nss)] See Dose Instructions IV PER PROTOCOL
03/04/25 00:46
0.9% Sodium Chloride 1000 ml [Nss] 1,000 ml IV 140 mls/hr
Acetaminophen [Tylenol] 650 mg PO Q4HPRN PRN
Bisacodyl [Dulcolax] 10 mg RECTAL [id number] PRN
Docusate W/Senna [Senokot-S] 1 tablet PO BIDPRN PRN
Famotidine [Pepcid] 40 mg PO HS
Metoclopramide [Reglan] 10 mg IV Q8H
Ondansetron Injectable [Zofran] 4 mg IV Q6HPRN PRN
Polyethylene Glycol Powder [Miralax] 17 grams PO DAILYPRN PRN
03/04/25 00:46
Activity As Directed
Activity Level: As Tolerated
Pneumatic Compression Sleeves As Directed
Type: Knee high
Vital Signs As Directed
Frequency: Per unit guidelines
DX Deep Vein Thrombosis Video Routine
03/04/25 01:19
Lactic Acid Q4H
Comment: CANCEL 2nd LACTIC ACID IF 1st LACTIC ACID IS LESS THAN 2
03/04/25 Breakfast
Clear Liquid
At Your Request: Full Participation
03/04/25 06:53
Basic Metabolic Panel IN AM
Complete Blood Count/No Diff IN AM
03/04/25 08:00
Aripiprazole [Abilify] 10 mg PO DAILY
Metoprolol Xl [Toprol Xl] 50 mg PO DAILY
NIFEdipine EXTENDED RELEASE [Procardia Xl (Extended Release)] 60 mg PO DAILY
Pantoprazole [Protonix] 40 mg PO DAILY
Venlafaxine Extended Release [Effexor Xr] 225 mg PO DAILY
03/05/25 06:28
Complete Blood Count/No Diff IN AM
03/06/25 06:00
Complete Blood Count/No Diff IN AM
Abnormal Lab Results
03/03/25 03/03/25 03/03/25
16:52 17:20 20:34
WBC 18.3 H 10^3/uL
(4.8-10.8)
MPV 10.5 H fL
(7.4-10.4)
Abs Immat Gran (auto) 0.1 H 10^3/uL
(0-0.05)
Absolute Neuts (auto) 15.9 H 10^3/uL
(1.4-6.5)
Absolute Monos (auto) 0.8 H 10^3/uL
(0.1-0.6)
Immature Gran % 0.7 H %
(0-0.5)
Neutrophils % 86.9 H %
(42.2-75.2)
Lymphocytes % 7.8 L %
(20.5-51.1)
Carbon Dioxide 11 L* mmol/L 20 L mmol/L
(22-30) (22-30)
BUN 18 H mg/dl
(7-17)
Creatinine 1.4 H mg/dL 1.2 H mg/dL
(0.6-1.0) (0.6-1.0)
Glucose 186 H mg/dl 154 H mg/dl
(70-99) (70-99)
Lactic Acid 2.3 H mmol/L
(0.7-2.0)
Calcium 10.6 H mg/dl
(8.4-10.2)
Total Bilirubin 1.4 H mg/dl
(0.2-1.3)
Alkaline Phosphatase 130 H U/L
(38-126)
Total Protein 9.0 H g/dl
(6.3-8.2)
Albumin 5.8 H g/dl
(3.5-5.0)
POC Glucose 134 H mg/dl
(70-99)
03/03/25 16:52
03/03/25 20:34
Vital Signs
Initial and Last Documented VS:
Initial Vital Signs
Pulse Resp BP Pulse Ox
109 28 135/100 100
03/03/25 16:42 03/03/25 16:42 03/03/25 16:42 03/03/25 16:42
Last Documented Vital Signs
Temp Pulse Resp BP Pulse Ox
98.1 F 88 18 160/106 96
03/05/25 07:00 03/05/25 07:00 03/05/25 07:00 03/05/25 07:00 03/05/25 07:00
Marcoslt;Lynda Eastman [employer] - Last Filed: 03/04/25 09:16>
MDM/Problems Addressed
Differential Diagnosis Includes:
CVA, TIA,
MDM/Problems Addressed:
5:10 p.m.
49 yo female with history of migraines, HTN,, GERD, endometriosis, cannabinoid hyperemesis, anxiety/depression present via EMS for nausea and vomiting. Pt states she woke at 4 a.m. not 'feeling well.' During initial assessment at 5:05 p.m. Pt noted
to have significant expressive aphasia. Intermittently she is able to tell me she feels nauseous and has been vomiting, last emesis 2-3 hours ago. She denies headache, neck pain, denies recent falls. Denies CP, or abdominal pain. States 'a little'
when asked if she felt SOB. She feels the urge to defecate and 'I think I just went.'
She had her 3rd dose of Zepbound yesterday
Afebrile,
5:15 p.m.
BP 90/ pt pale, expressive aphasia, No hypoxemia.
Dr. Garcia in
Stroke alert initiated. Pt to CT scan.
5:[address] Patterson evaluated patient and not a candidate for TNK and states she is not concerned for any worrisome neuro event
Pt is hyperventilating, anxious, unable to be calmed. Ativan ordered
6:30 p.m.
After Ativan pt calm, states 'I can talk again'
She reports that she vapes marijuana a few times a week. She's done this for years, she's had about 10 episodes similar to today's with expressive aphasia and told they were due to her marijuana use. She states she is trying to stop. Her last vape
was [address] head, CTA head and neck unremarkable.
Pt OOB and ambulated to BR and back steadily.
She states she does not feel ready to be discharged as she usually gets 'tons of fluid, Compazine and Benadryl and sometimes they admit me.'
She has not vomited since arrival. She still feels nauseous.
Plan: Second liter of NSS, Compazine and Benadryl and DC home.
Instructed to stop marijuana
CBC:No clinically significant abnormality
CMP: Bicarb 11 most likely from hyperventilation/vomiting
Patient resting comfortably, IV fluids infusing, case discussed with Dr. Banda [employer] who will assume care from this point and discharge patient
<Lynda Eastman NP - Last Filed: 03/04/25 09:16>
*Critical Care Note
Total Time (30-74mins, 75-104mins- exclusive of procedures): Not Applicable
<Juliana Banda NP - Last Filed: 03/05/25 14:09>
Update Note
Update Note:
Patient to ED with report of vomiting since 6AM. Arrived aphasic. Evaluated by neuro, CT revoewed.- no CVA. Labs reviewed. WBC 18 noted. Lactic ordered, result 2.3. Will check procalcitonin. Blood cultures ordered, results are pending. CO2 on
arrival 11, most likely related to her vomiting/dehydration. She received IV fluids in ED, Co2 now 20. VSS, afebrile. No vomiting while in ED. No abdominal pain. Still with complaint of nausea and weakness, does not feel that she can go home
safely. Will admit to hospitalist service
ED Attending Note
<Lynda Eastman [employer] - Last Filed: 03/04/25 09:16>
-
Portions of this chart may have been created with voice recognition software.� Occasional wrong word or��sound alike� substitutions may have occurred due to the inherent limitations of voice recognition software.
<Bryce Garcia DO - Last Filed: 03/03/25 20:26>
ED Attending Note
Patient seen and examined by attending physician: Yes
I performed the substantive portion of visit, reviewed & personally made and approve the management plan that is documented in note by myself or LAURIE.: Yes
ED Attending Note:
I evaluated the patient at bedside. At times the patient can communicate however frequently she does have periods where she has severe expressive aphasia. Therefore we have called as a stroke alert. She reportedly does use marijuana as well and
has history of cannabinoid hyperemesis syndrome.
The patient's white count is 18,000 and bicarb is only 11. She still does not feel well. Will restart IV and give additional IV fluids. Lactic acid and repeat chemistries pending.
Discharge Plan
Departure
Patient Disposition: Admit
Date of Disposition: 03/03/25
Time of Disposition: 21:23
Presentation/result/management discussed w/ accepting MD/DO: Hospitalist
Patient with high blood pressure during this ER visit?: Yes
Condition: Fair
Discharge Problem:
Nausea & vomiting, Acute dehydration
Interventions
Interventions:
*Risk Screen - Suicide Last Done: 03/04/25 00:39
*General Assessment Last Done: 03/03/25 16:44
*Neglect/Abuse Screening Last Done: 03/03/25 16:44
*ED- Fall Risk Assessment Last Done: 03/03/25 16:44
*ED COVID-19 Vaccine History Last Done: 03/04/25 00:39
*Nursing Disposition Last Done: 03/04/25 00:30
IO-Tiaqet-Uxrqwroclr Assessment Last Done: 03/03/25 16:44
ED- Cardiac Assessment Last Done: 03/03/25 16:44
ED- Pulmonary Assessment Last Done: 03/03/25 16:44
Discharge Date and Time
Discharge Date/Time: 03/04/25 00:30
[2025-03-03 17:25] LABS: AST (SGOT) 36 U/L (14-36); Albumin 5.8 g/dl (3.5-5.0); Alkaline Phosphatase 130 U/L (38-126); Blood Urea Nitrogen 18 mg/dl (7-17); Calcium 10.6 mg/dl (8.4-10.2); Carbon Dioxide 11 mmol/L (22-30); Chloride 104 mmol/L (98-107); Estimated Creatinine Clearance 56 ml/min; Glucose 186 mg/dl (70-99); Potassium 4.5 mmol/L (3.5-5.1); Sodium 142 mmol/L (135-145); Total Bilirubin 1.4 mg/dl (0.2-1.3); eGFR 46.12
[2025-03-03 17:31] LABS: Glucose - Point of Care 134 mg/dl (70-99)
--- NOTE | 2025-03-03 17:31 | CON.NEURO ---
Consultation
Order
Date of Consultation: 03/03/25
Reason for Consult: Stroke alert
Called in 17:18
Neurology Consultation Note.
HPI: this is a 49-year-old right-handed woman who presented to [facility] on March 03, 2025 with nausea and emesis. Stroke alert was activated for expressive aphasia.
According to medical personnel Ms. Lopez was noted to have difficulties expressing her thoughts with associated hyperventilation anxiety that started about at 17:15 today. No reports of headaches, motor, sensory or visual symptoms.
ER VS: 135/100, 109�112, 37.1
EKG: sinus tachycardia at 108.
PDMP:Dexmethylphenidate Er 20 Mg, 20 capsules filled in on 10/22/2024
Labs: WBCs18.3, normal sodium, CO2�11, creatinine�1.4, glucose�186, calcium�10.6, bilirubin�1.4, alk phos�130, total protein�9
CT head wo contrast-�no acute abnormalities.
PMH: ADHD, ESTELA, MDD, HTN, GERD, BMI 37.8, cannabis use disorder
PSH:bilateral medial maxillary antrostomies and bilateral partial ethmoidectomies, section x2
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
All:NKDA
ROS: Positive for anxiety, transient difficulties getting words out
NIH Stroke Scale
in moderate distress due to hyperventilation and anxiety.
1A Level of Consciousness: 0/3
1B LOC Questions: 0/2
1C LOC Commands: 0/2
2 Best Gaze: 0/2
3 Visual: 0/3
4 Facial Palsy: 0/3
5A Motor Arm LEFT: 0/4
5B Motor Arm RIGHT: 0/4
6A Motor Leg LEFT: 0/4
6B Motor Leg RIGHT: 0/4
7 Limb Ataxia: 0/2
8 Sensory: 0/2
9 Best Language: 0/3
10 Dysarthria: 0/2
11 Extinction/Inattention: 0/2
Total NIHSS: 0
Assessment and Plan:
I. ESTELA. Panic attack. Not a candidate for IV TNK due to symptoms resolution.
II. Cannabis use disorder
III. Metabolic acidosis
- continue clinical monitoring
- please check TFTs, urine tox
- Will follow
I personally reviewed all radiology and labs along with past medical records pertinent to current medical problems. Total time spent in patient care is 60 minutes.
Thank you for allowing us to participate in the care of this patient. We will continue to follow. Please do not hesitate to contact us with any questions or concerns.
Subjective/Objective
Subjective Data
Date of Service: March 03, 2025
Objective Data
Vital Signs
Temp Pulse Resp BP Pulse Ox
37.1 C 112 34 135/100 99
03/03/25 16:44 03/03/25 16:44 03/03/25 16:44 03/03/25 16:44 03/03/25 16:44
Lab Results
03/03/25 16:52
03/03/25 16:52
Sodium 142 mmol/L (135-145) 03/03/25 16:52
Potassium 4.5 mmol/L (3.5-5.1) 03/03/25 16:52
BUN 18 mg/dl (7-17) H 03/03/25 16:52
Glucose 186 mg/dl (70-99) H 03/03/25 16:52
Calcium 10.6 mg/dl (8.4-10.2) H 03/03/25 16:52
Patient Allergies
No Known Allergies Allergy (Verified 11/29/24 09:32)
Medications
-
Home Medications
�Medication �Instructions �Recorded
nifedipine 60 mg tablet,extended 60 mg PO DAILY Blood pressure 03/09/19
release
venlafaxine 150 mg 150 mg PO DAILY #30 caps 07/25/19
capsule,extended release 24 hr
(Effexor XR)
venlafaxine 75 mg capsule,extended 75 mg PO DAILY #30 caps 07/25/19
release 24 hr
metoprolol succinate 50 mg 50 mg PO DAILY Blood pressure 02/23/22
tablet,extended release 24 hr
pantoprazole 40 mg tablet,delayed 40 mg PO DAILY #30 tabs 10/13/23
release (Protonix)
aripiprazole 10 mg tablet (Abilify) 10 mg PO DAILY 11/29/24
dexmethylphenidate 10 mg tablet 10 mg PO DAILY 11/29/24
(Focalin)
Vital Signs and Labs
-
Vital Signs and Labs:
Vital Signs
Temp Pulse Resp BP Pulse Ox
37.1 C 112 34 135/100 99
03/03/25 16:44 03/03/25 16:44 03/03/25 16:44 03/03/25 16:44 03/03/25 16:44
Lab Results
03/03/25 16:52
03/03/25 16:52
Sodium 142 mmol/L (135-145) 03/03/25 16:52
Potassium 4.5 mmol/L (3.5-5.1) 03/03/25 16:52
BUN 18 mg/dl (7-17) H 03/03/25 16:52
Glucose 186 mg/dl (70-99) H 03/03/25 16:52
Calcium 10.6 mg/dl (8.4-10.2) H 03/03/25 16:52
Home Medications
-
Home Medications
nifedipine 60 mg tablet,extended release 60 mg PO DAILY Blood pressure 03/09/19
venlafaxine 150 mg capsule,extended release 24 hr (Effexor XR) 150 mg PO DAILY #30 caps 07/25/19
venlafaxine 75 mg capsule,extended release 24 hr 75 mg PO DAILY #30 caps 07/25/19
metoprolol succinate 50 mg tablet,extended release 24 hr 50 mg PO DAILY Blood pressure 02/23/22
pantoprazole 40 mg tablet,delayed release (Protonix) 40 mg PO DAILY #30 tabs 10/13/23
aripiprazole 10 mg tablet (Abilify) 10 mg PO DAILY 11/29/24
dexmethylphenidate 10 mg tablet (Focalin) 10 mg PO DAILY 11/29/24
[2025-03-03] MEDS: ZOFRAN 4 MG IV ×2 (17:42→18:33)
[2025-03-03] MEDS: ATIVAN 1 MG IV (17:52)
[2025-03-03 18:10] LABS: ALT (SGPT) < 30 U/L (0-35)
[2025-03-03] MEDS: COMPAZINE 10 MG IV (18:32)
[2025-03-03] MEDS: BENADRYL 50 MG IV (18:33)
[2025-03-03] MEDS: NSS 1000 IV ×2 (18:33→20:40)
[2025-03-03 20:57] LABS: Lactic Acid 2.3 mmol/L (0.7-2.0)
[2025-03-03 20:59] LABS: Blood Urea Nitrogen 17 mg/dl (7-17); Calcium 9.8 mg/dl (8.4-10.2); Carbon Dioxide 20 mmol/L (22-30); Chloride 104 mmol/L (98-107); Estimated Creatinine Clearance 65 ml/min; Glucose 154 mg/dl (70-99); Potassium 4.1 mmol/L (3.5-5.1); Sodium 142 mmol/L (135-145); eGFR 55.49
--- NOTE | 2025-03-03 21:27 | HPS.HSE ---
Family Physician
-
Family Physician: Fauzia Ospina
Chief Complaint
-
nausea and vomitting
History of Present Illness
49 yo female with history of migraines, HTN,, GERD, endometriosis, cannabinoid hyperemesis, anxiety/depression present via EMS for nausea and vomiting since Thursday night. she started taking zepbound for weight loss. she took it on and
she started vomiting since then. denied abdominal pain, diarrhea or constipation. denied ABARCA, dizzy or syncope.denied fever, chills, chest pain,sob. denied dysuria or hematuria.
Patient received Benadryl, Ativan, normal saline, Zofran and Compazine in ER. Blood culture sent from ER. Admitting for further management
Medical History
Past Medical History
Past Medical History: Reports Other
Additional Past Medical History:
Tension type headache, stop alcohol pharyngitis, radiculopathy, sciatica, depression, hyperlipidemia, carpal tunnel syndrome, hypertension, cannabis use
Past Surgical History: Reports Other
Additional Past Surgical History:
Septoplasty, , wisdom tooth extraction
Social History
Tobacco: Non-smoker
Alcohol: None
Drug: Marijuana (Daily)
Personal: Single
Living: Alone
Family History
Family History: Not pertinent
Allergies / Home Medications
Allergies reflects when Allergies were last updated in [facility].
Home Medications with original date entered in [facility]
Allergy/Medication List:
Allergies
Allergy/AdvReac Type Severity Reaction Status Date / Time
No Known Allergies Allergy Verified 11/29/24 09:32
Home Medications
aripiprazole 10 mg tablet (Abilify) 10 mg PO DAILY 11/29/24
dexmethylphenidate 10 mg tablet (Focalin) 10 mg PO DAILY 11/29/24
Review of Systems
-
Constitutional: Reports No Symptoms
EENT: Reports No Symptoms
Respiratory: Reports No Symptoms
Cardiac: Reports No Symptoms
Abdomen/GI: Reports Nausea and Vomiting
: Reports No Symptoms
Musculoskeletal: Reports No Symptoms
Skin: Reports No Symptoms
Neurological: Reports No Symptoms
Endocrine: Reports No Symptoms
Hematologic/Lymphatic: Reports No Symptoms
Psych: Reports No Symptoms
Physical Exam
Vital Signs
Vital Signs
Temp Pulse Resp BP Pulse Ox
98.7 F 117 31 157/91 94
03/03/25 16:44 03/03/25 20:37 03/03/25 20:37 03/03/25 20:37 03/03/25 20:37
Physical Exam
General: Well Developed, Well Nourished and No Apparent Distress
HEENT: NormoCephalic, Moist mucous membranes and Atraumatic
Respiratory: Clear
Cardiac: S1/S2 and Regular Rhythm; No Murmur or Rub
GI: Soft, Non Tender, Non Distended and Normal Bowel Sounds; No Organomegaly
Rectal: Deferred by Provider
Musculoskeletal: No Clubbing, No Cyanosis and No Edema
Skin: No Rash
Neuro: AO x 3 and Nonfocal/grossly intact
Psych: Calm
Laboratory Results
-
03/03/25 16:52
03/03/25 20:34
Laboratory Results
Lactic Acid 2.3 mmol/L (0.7-2.0) H 03/03/25 20:34
Total Bilirubin 1.4 mg/dl (0.2-1.3) H 03/03/25 16:52
AST 36 U/L (14-36) 03/03/25 16:52
ALT < 30 U/L (0-35) 03/03/25 16:52
Alkaline Phosphatase 130 U/L (38-126) H 03/03/25 16:52
Data Reviewed
-
Lab Data: Labs Reviewed by me
Impression/Plan
-
# Intractable nausea vomiting likely cyclic vomiting syndrome/cannabis hyperemesis syndrome/zepbound effects
- SIRS as evident by WBC 18.3, lactic 2.3
- Blood culture sent from ER
-Clear liquid diet
- Fluids continued for hydration
- Trend lactic
- Monitor WBCs
-Zofran prn, Reglan ATC, famotidine at hs
-Protonix increased to 40mg
# Metabolic acidosis/acute kidney injury likely dehydration
- Fluids continued
- BMP in a.m.
#slurred speech resolved
-head neck CTA/head with no acute finding
-patient was evaluated by neurology with no intervention recommended
# Hypertension
continue metoprolol, nifedipine
IV hydralazine as needed
# Depression
mood stable
continue aripiprazole, venlafaxine
# GERD
-PPI continued
Code Status: Full code
DVT Prophylaxis: SCDs
--- NOTE | 2025-03-03 21:37 | W.PN.UPDATE ---
Update Note
Progress Note Update
Patient seen in conjunction with ANDRY. I agree with the findings and history and physical and concur with the assessment and plan.
Briefly, this is a 49-year-old female with past medical history significant for hypertension, depression, GERD, endometriosis, chronic cannabinoid use with history of cyclic vomiting syndrome and gastroparesis presenting to the emergency department
with abdominal pain and vomiting. She reports that she recently restarted taking weightloss Zepbound for the last 3 weeks. She also continues to vape cannabis. She reports that she has been having nausea and vomiting for the last 3 days and is
unable to keep anything down. She denies any melena. She does report some brownish and bloody emesis suggestive of retching. She denies any abdominal pain. She denies flank pain. She denies any dysuria or hematuria frequency or urgency. She
denies diarrhea or constipation. She had was not feeling well this a.m. with continued nausea and vomiting so she said come to the emergency department. The vomiting has been nonbilious.
Blood pressure was 157/90 with a pulse of 117 oxygen saturation of 94%. ECG shows sinus tachycardia at 108. CBC was remarkable for a white count of 18.3 hemoglobin 15.3 and platelet of 310. Lactic acid was 2.3, electrolytes were normal. BUN and
creatinine were 17 and 1.2 respectively.
She had imaging with CT head and CT angio due to expressive aphasia which shows no acute abnormalities.
LFTs were normal, albumin was elevated at 5.8.
She has remained tachycardic in the emergency department. With there is slight elevation in lactic acid and leukocytosis and continued GI symptoms patient was admitted for further treatment.
A&P
Patient with dehydration and intractable n/v likely secondary to cannabinoid hyperemesis and zepbound use similar to last admission. No abdominal pain. No urinary symptoms.
Intractable vomiting - benign examination but still tachycardic and nauseous.
- admit to med/surg
- reglan RTC with prn zofran
- ppi iv daily, famotidine hs
- pain control and IV fluids
- clear liquid diet for now, ADAT
Leukocytosis - No obvious infection, felt to be reactive. Monitor for now
DVT PPX -
[2025-03-03 22:53] LABS: Procalcitonin < 0.05 ng/ml (0.0-0.25)
[2025-03-04] VITALS (8 sets, daily range): BP systolic 124–187; BP diastolic 73–115
--- NOTE | 2025-03-04 01:16 | PTCARENOTE ---
Patient arrived from ED via stretcher. Ambulatory from stretcher to bed. Complained of dyspnea on exertion--satting at 100% on room air. BP elevated, provider notified. PRN hydralazine ordered for BP management. Patient complaining of nausea. Morris
given by this RN. Skin check completed. Lactic blood draw pending. IV fluids started at 140 ml/hr. Patient a standby assist, while ambulating due to complaints of feeling lightheaded. Bed alarm on. Patient oriented to room. Bed in lowest position.
Call day and personal belongings within reach.
[2025-03-04] MEDS: NSS 1000 IV ×2 (01:21→05:45)
[2025-03-04] MEDS: APRESOLINE 5 MG IV (01:23)
[2025-03-04] MEDS: ZOFRAN 4 MG IV ×3 (01:23→19:54)
[2025-03-04] MEDS: PEPCID 40 MG PO ×2 (01:24→22:15)
[2025-03-04] MEDS: REGLAN IV ×3 (01:25→23:46)
[2025-03-04 01:51] LABS: Lactic Acid 1.7 mmol/L (0.7-2.0)
--- NOTE | 2025-03-04 02:09 | PTCARENOTE ---
status post administration IV hydralazine, BP 154/101, HR 115.
[2025-03-04 08:24] LABS: Hematocrit 36.3 % (37.0-47.0); Hemoglobin 12.3 g/dL (12.0-16.0); Mean Corp Hgb Conc. 33.9 g/dL (33.0-37.0); Mean Corpuscular Volume 91.4 fL (81.0-99.0); Mean Platelet Volume 11.2 fL (7.4-10.4); Platelet Count 242 10^3/uL (130-400); Red Blood Cell Count 3.97 10^6/uL (4.20-5.40); Red Cell Dist. Width 13.4 % (11.5-14.5); White Blood Cell Count 12.2 10^3/uL (4.8-10.8)
[2025-03-04] MEDS: ABILIFY 10 MG PO (08:38)
[2025-03-04] MEDS: EFFEXOR XR 225 MG PO (08:39)
[2025-03-04] MEDS: PROCARDIA XL (EXTENDED RELEASE) 60 MG PO (08:39)
[2025-03-04] MEDS: TOPROL XL 50 MG PO (08:39)
[2025-03-04] MEDS: PROTONIX 40 MG PO (08:40)
[2025-03-04] MEDS: REGLAN 10 MG IV (08:40)
[2025-03-04 08:51] LABS: Blood Urea Nitrogen 12 mg/dl (7-17); Calcium 8.8 mg/dl (8.4-10.2); Carbon Dioxide 20 mmol/L (22-30); Chloride 106 mmol/L (98-107); Estimated Creatinine Clearance 78 ml/min; Glucose 106 mg/dl (70-99); Potassium 3.6 mmol/L (3.5-5.1); Sodium 141 mmol/L (135-145); eGFR > 60.00
--- NOTE | 2025-03-04 11:20 | W.PN.NEURO.1 ---
Today's Communication / Plan
-
.
Subjective/Objective
Subjective Data
Date of Service: March 04, 2025
Neurology follow-up note.
The patient states that her nausea has significantly improved. admits to longstanding history of anxiety with intermittent panic attack that presented with expressive aphasia. No reports of change in vision, strength and sensation.
Continues to be hypertensive and tachycardic.
CTA�no evidence of hemodynamically significant stenosis.
Labs: WBCs�12.2, CO2 3�20, creatinine 1.4�1.0, glucose�106,
PMH: ADHD, ESTELA, MDD, HTN, GERD, BMI 37.8, cannabis use disorder
PSH:bilateral medial maxillary antrostomies and bilateral partial ethmoidectomies, section x2
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
All:NKDA
ROS: Positive for nausea, anxiety, intermittent morning headaches.
General: Well developed. In no acute distress.
Cardio: Regular rate and rhythm without murmur. Extremities are without cyanosis or edema.
Neuro:
Mental Status: Alert, oriented to person, place, and date. Normal attention and recall. Good fund of knowledge. Follows complex requests across the midline. Comprehension, naming, and repetition intact. Immediate and delayed recall 3/3.
Cranial Nerves: Unable to visualize optic discs due to insufficient dilatation. Pupils are equally round and reactive to light. EOMs full. Visual castorena full to confrontation. No ptosis. No nystagmus. V1-V3 intact to light touch and pinprick
bilaterally, symmetric. Face symmetric. Normal hearing AU. The palate elevated well. SCMs and traps 5/5. Tongue midline. No dysarthria.
Motor: Normal bulk and tone. No pronator or arm drift. Strength 5/5 throughout. No clonus.
Reflexes: 2+ throughout the upper extremities and knees. 2/2 in AJs. Plantar responses flexor bilaterally.
Sensory: Normal pinprick, vibration and JPS.
Coordination: No dysmetria or tremor.
Gait: deferred
Assessment and Plan:
I. Transient aphasia. Differential diagnosis includes vascular vs ESTELA
II. Cannabis use disorder
III. Cervical spine DJD
- continue clinical monitoring
- please follow-up TFTs, urine tox
- Aspirin 81 mg once a day
- Please follow-up brain MRI given stroke risk factors
- Outpatient sleep study
I personally reviewed all radiology and labs along with past medical records pertinent to current medical problems. Total time spent in patient care is 35 minutes.
Thank you for allowing us to participate in the care of this patient.Please do not hesitate to contact us with any questions or concerns.
Objective Data
Vital Signs
Temp Pulse Resp BP Pulse Ox
37.2 C 107 18 151/84 98
03/04/25 07:00 03/04/25 07:00 03/04/25 07:00 03/04/25 07:00 03/04/25 08:00
Lab Results
03/04/25 06:53
03/04/25 06:53
Sodium 141 mmol/L (135-145) 03/04/25 06:53
Potassium 3.6 mmol/L (3.5-5.1) 03/04/25 06:53
BUN 12 mg/dl (7-17) 03/04/25 06:53
Glucose 106 mg/dl (70-99) H 03/04/25 06:53
Calcium 8.8 mg/dl (8.4-10.2) 03/04/25 06:53
Patient Allergies
No Known Allergies Allergy (Verified 11/29/24 09:32)
Vital Signs and Labs
-
Vital Signs and Labs:
Vital Signs
Temp Pulse Resp BP Pulse Ox
37.2 C 107 18 151/84 98
03/04/25 07:00 03/04/25 07:00 03/04/25 07:00 03/04/25 07:00 03/04/25 08:00
Lab Results
03/04/25 06:53
03/04/25 06:53
Sodium 141 mmol/L (135-145) 03/04/25 06:53
Potassium 3.6 mmol/L (3.5-5.1) 03/04/25 06:53
BUN 12 mg/dl (7-17) 03/04/25 06:53
Glucose 106 mg/dl (70-99) H 03/04/25 06:53
Calcium 8.8 mg/dl (8.4-10.2) 03/04/25 06:53
Medications
-
Medications:
Generic Name Dose Route Start Last Admin
Trade Name Freq PRN Reason Stop Dose Admin
Acetaminophen 650 mg 03/04/25 00:46
Acetaminophen 325 Mg Tablet PO 04/01/25 00:45
Q4HPRN PRN
mild pain/ABARCA/temp> 100.4F
Aripiprazole 10 mg 03/04/25 08:00 03/04/25 08:38
Aripiprazole 10 Mg Tablet PO 04/01/25 07:59 10 mg
DAILY ROBERT Administration
Bisacodyl 10 mg 03/04/25 00:46
Bisacodyl 10 Mg Rectal Suppository RECTAL 04/01/25 00:45
[id number] PRN
constipation
Famotidine 40 mg 03/04/25 00:46 03/04/25 01:24
Famotidine 40 Mg Tablet PO 04/01/25 00:45 40 mg
HS ROBERT Administration
Hydralazine HCl 5 mg 03/04/25 01:08 03/04/25 01:23
Hydralazine 20 Mg/Ml Vial IV 04/01/25 01:07 5 mg
Q4HPRN PRN Administration
SBP >170
Sodium Chloride 1,000 mls @ 140 mls/hr 03/04/25 00:46 03/04/25 05:45
Nss IV 1,000 mls
.Q7H9M ROBERT Administration
Metoclopramide HCl 10 mg 03/04/25 00:46 03/04/25 08:40
Metoclopramide 10 Mg/2 Ml Vial IV 04/01/25 00:45 10 mg
Q8H ROBERT Administration
Metoprolol Succinate 50 mg 03/04/25 08:00 03/04/25 08:39
Metoprolol 50 Mg Extended Release Tablet PO 04/01/25 07:59 50 mg
DAILY ROBERT Administration
Nifedipine 60 mg 03/04/25 08:00 03/04/25 08:39
Nifedipine 60 Mg Extended Release Tablet PO 04/01/25 07:59 60 mg
DAILY ROBERT Administration
Ondansetron HCl 4 mg 03/04/25 00:46 03/04/25 09:38
Ondansetron 4 Mg/2 Ml Vial IV 04/01/25 00:45 4 mg
Q6HPRN PRN Administration
nausea and vomiting
Pantoprazole Sodium 40 mg 03/04/25 08:00 03/04/25 08:40
Pantoprazole 40 Mg Delayed Release Tablet PO 04/01/25 07:59 40 mg
DAILY ROBERT Administration
Polyethylene Glycol 17 grams 03/04/25 00:46
Polyethylene Glycol Powder 17 Grams Packet PO 04/01/25 00:45
DAILYPRN PRN
constipation
Senna/Docusate Sodium 1 tablet 03/04/25 00:46
Docusate W/Senna (Millie-Colace) Tablet PO 04/01/25 00:45
BIDPRN PRN
constipation
Sodium Chloride 0 flush 03/03/25 22:00
Sodium Chloride 0.9% (Flush) Syringe IV 03/31/25 21:59
PER PROTOCOL ROBERT
Venlafaxine HCl 225 mg 03/04/25 08:00 03/04/25 08:39
Venlafaxine 75 Mg Extended Release Capsule PO 04/01/25 07:59 225 mg
DAILY ROBERT Administration
Home Medications
-
Home Medications
aripiprazole 10 mg tablet (Abilify) 10 mg PO DAILY 11/29/24
dexmethylphenidate 20 mg capsule,extended release [id number] 20 mg PO DAILYPRN PRN focus factor 03/03/25
metoprolol succinate 50 mg tablet,extended release 24 hr (Toprol XL) 50 mg PO DAILY 03/03/25
nifedipine 60 mg tablet,extended release 24 hr 60 mg PO DAILY 03/03/25
pantoprazole 20 mg tablet,delayed release (Protonix) 20 mg PO DAILY 03/03/25
tirzepatide (weight loss) 2.5 mg/0.5 mL subcutaneous solution (Zepbound) 2.5 mg SC WE 03/03/25
venlafaxine 225 mg tablet,extended release 24 hr 225 mg PO DAILY 03/03/25
[2025-03-04 11:59] LABS: HDL Cholesterol 30 mg/dl; LDL Cholesterol, Calculated 186 mg/dl; Total Cholesterol 230 mg/dl (50-199); Triglyceride 74 mg/dl (10-149); Very Low Density Lipoprotein 14 mg/dl (0-30)
--- NOTE | 2025-03-04 12:10 | W.PN.HOSP.TC ---
Today's Communication/Plan
-
TFTs
MRI brain as per neuro
ADAT, CLD for today
Statin
switch to LR
Monitor CBC, BMP
Assessment / Plan
Assessment / Plan
Physical Exam
General: Well Developed, Well Nourished and No Apparent Distress
HEENT: NormoCephalic, Moist mucous membranes and Atraumatic
Respiratory: Clear
Cardiac: S1/S2 and Regular Rhythm; No Murmur or Rub
GI: Soft, Non Tender, Non Distended and Normal Bowel Sounds; No Organomegaly
Rectal: Deferred by Provider
Musculoskeletal: No Clubbing, No Cyanosis and No Edema
Skin: No Rash
Neuro: AO x 3 and Nonfocal/grossly intact
Psych: Calm
Transient aphasia., resolved rapidly
-suspect generalized anxiety disorder
� Neurology consulted in the ED
� Aspirin as per neurology
� Follow-up TFTs, urine toxicology
� Neurology ordered brain MRI
� Outpatient sleep study
Intractable vomiting
�Most likely cyclic vomiting syndrome/cannabis hyperemesis syndrome
� Less likely Zepbound effects as patient having bowel movements, bili nondistended
�Symptomatic control
� Trial clear liquid diet, ADAT
� PPIs okay daily
� Hold Zepbound, defer to GI/PCP for restarting
� Educated on marijuana cessation
#SIRS, more than likely noninfectious etiology
#Leukocytosis
� Most likely reactive
� Monitor fever curve, white count
#Metabolic acidosis
#NORBERT
� Continue fluids
� Monitor BMP
� LR
#Hypertension
� Continue metoprolol, nifedipine
#Depression
� Continue home medications
#GERD�PPI
#Hyperlipidemia
� Diet controlled
-start statin
#Transaminitis
# Hyperbilirubinemia
I suspect secondary to cyclic vomiting
� Elevated alk phos
� No right upper quadrant tenderness
� Continue to monitor
#Full code
� DVT prophylaxis
-hsq
Anticipated Discharge: 24 - 48 hours
Subjective/Interval History
-
Date of Service: March 04, 2025
still nauseous, going to trial liquid diet this morning
Objective Data
-
Labs:
Laboratory Results
03/04/25
06:53
WBC 12.2 H
Hgb 12.3
Hct 36.3 L
Plt Count 242 D
Sodium 141
Potassium 3.6
Chloride 106
Carbon Dioxide 20 L
BUN 12
Creatinine 1.0
Glucose 106 H
Calcium 8.8
Vital Signs:
Vital Signs
Temp Pulse Resp BP Pulse Ox
98.9 F 107 18 151/84 98
03/04/25 07:00 03/04/25 07:00 03/04/25 07:00 03/04/25 07:00 03/04/25 08:00
Review of Systems
-
History Source: Patient
All other systems: Not reviewed unless documented
Data Reviewed
-
CT Scan: Report Reviewed by me
Labs: Labs Reviewed by me
--- NOTE | 2025-03-04 12:11 | PTCARENOTE ---
No NIHs or neuro checks needed per Dr Darby. Will continue to monitor.
[2025-03-04] MEDS: LR 1000 IV (13:14)
[2025-03-04] MEDS: ASPIR LOW (ENTERIC COATED) 81 MG PO (13:14)
[2025-03-04] MEDS: BENADRYL 50 MG IV (16:18)
[2025-03-04] MEDS: COMPAZINE 10 MG IV (16:18)
[2025-03-04] MEDS: LOVENOX 40 MG SC (16:23)
[2025-03-04] MEDS: LIPITOR 40 MG PO (16:23)
[2025-03-04 20:24] LABS: Amphetamines Negative (Negative); Barbiturates Negative (Negative); Benzodiazepines Positive (Negative); Buprenorphine Negative (Negative); Cocaine Negative (Negative); Marijuana Positive (Negative); Methadone Negative (Negative); Methamphetamines Negative (Negative); Opiates Negative (Negative); Phencyclidine Negative (Negative); Tricyclic Antidepressants Negative (Negative)
[2025-03-04 20:38] LABS: Fentanyl, Urine Negative (Negative)
[2025-03-05] MEDS: LR 1000 IV (00:18)
[2025-03-05 07:00] VITALS: BP 160/106
[2025-03-05 07:35] LABS: Hematocrit 41.6 % (37.0-47.0); Hemoglobin 14.5 g/dL (12.0-16.0); Mean Corp Hgb Conc. 34.9 g/dL (33.0-37.0); Mean Corpuscular Hgb 31.6 pg (27.0-31.0); Mean Corpuscular Volume 90.6 fL (81.0-99.0); Mean Platelet Volume 10.4 fL (7.4-10.4); Platelet Count 292 10^3/uL (130-400); Red Blood Cell Count 4.59 10^6/uL (4.20-5.40); Red Cell Dist. Width 13.3 % (11.5-14.5); White Blood Cell Count 13.1 10^3/uL (4.8-10.8)
[2025-03-05 08:22] LABS: ALT (SGPT) 21 U/L (0-35); AST (SGOT) 26 U/L (14-36); Albumin 4.7 g/dl (3.5-5.0); Alkaline Phosphatase 107 U/L (38-126); Blood Urea Nitrogen 9 mg/dl (7-17); Carbon Dioxide 26 mmol/L (22-30); Chloride 101 mmol/L (98-107); Estimated Creatinine Clearance 87 ml/min; Glucose 109 mg/dl (70-99); Potassium 3.8 mmol/L (3.5-5.1); Sodium 141 mmol/L (135-145); Total Bilirubin 0.9 mg/dl (0.2-1.3); Total Protein 7.7 g/dl (6.3-8.2); eGFR > 60.00
[2025-03-05] MEDS: TOPROL XL 50 MG PO (08:37)
[2025-03-05] MEDS: ABILIFY 10 MG PO (08:37)
[2025-03-05] MEDS: ASPIR LOW (ENTERIC COATED) 81 MG PO (08:37)
[2025-03-05] MEDS: EFFEXOR XR 225 MG PO (08:37)
[2025-03-05] MEDS: PROCARDIA XL (EXTENDED RELEASE) 60 MG PO ×2 (08:37→20:05)
[2025-03-05] MEDS: PROTONIX 40 MG PO (08:37)
[2025-03-05] MEDS: REGLAN IV (08:38)
[2025-03-05] MEDS: LR IV (10:02)
--- NOTE | 2025-03-05 12:44 | W.PN.HOSP.TC ---
Today's Communication/Plan
-
MR Brain
adv to LRD
increase nifedipine
Assessment / Plan
Assessment / Plan
Physical Exam
General: Well Developed, Well Nourished and No Apparent Distress
HEENT: NormoCephalic, Moist mucous membranes and Atraumatic
Respiratory: Clear
Cardiac: S1/S2 and Regular Rhythm; No Murmur or Rub
GI: Soft, Non Tender, Non Distended and Normal Bowel Sounds; No Organomegaly
Rectal: Deferred by Provider
Musculoskeletal: No Clubbing, No Cyanosis and No Edema
Skin: No Rash
Neuro: AO x 3 and Nonfocal/grossly intact
Psych: Calm
Transient aphasia., resolved rapidly
-suspect generalized anxiety disorder
� Neurology consulted in the ED
� Aspirin as per neurology
� TFTs WNL
-urine toxicology - cannabis, benzos
� Neurology ordered brain MRI
� Outpatient sleep study
-ASA, statin
Intractable vomiting
�Most likely cyclic vomiting syndrome/cannabis hyperemesis syndrome
� Less likely Zepbound effects as patient having bowel movements, bili nondistended
�Symptomatic control
� Trial LRD today
� PPIs okay daily
� Hold Zepbound, defer to GI/PCP for restarting
� Educated on marijuana cessation
#SIRS, more than likely noninfectious etiology
#Leukocytosis
� Most likely reactive
� Monitor fever curve, white count
#Metabolic acidosis
#NORBERT
resolved
� Continue fluids
� Monitor BMP
� LR
#Hypertension
� Continue metoprolol, increase nifedipine to 60mg BID
#Depression
� Continue home medications
#GERD�PPI
#Hyperlipidemia
� Diet controlled
-start statin
#Transaminitis
# Hyperbilirubinemia
I suspect secondary to cyclic vomiting
� Elevated alk phos
� No right upper quadrant tenderness
� Continue to monitor
#Full code
� DVT prophylaxis
-hsq
Anticipated Discharge: Within 24 hours
Subjective/Interval History
-
Date of Service: March 05, 2025
No acute events, feeling better and wants to trial lrd
Objective Data
-
Labs:
Laboratory Results
03/05/25
06:28
WBC 13.1 H
Hgb 14.5
Hct 41.6
Plt Count 292 D
Sodium 141
Potassium 3.8
Chloride 101
Carbon Dioxide 26
BUN 9
Creatinine 0.9
Glucose 109 H
Calcium 10.0
Total Bilirubin 0.9
AST 26
ALT 21
Alkaline Phosphatase 107
Vital Signs:
Vital Signs
Temp Pulse Resp BP Pulse Ox
98.1 F 88 18 160/106 96
03/05/25 07:00 03/05/25 07:00 03/05/25 07:00 03/05/25 07:00 03/05/25 07:00
I&O
03/04/25 03/05/25 03/06/25
06:59 06:59 06:59
Intake Total 3210 / 3210
Balance 3210 / 3210
Review of Systems
-
History Source: Patient
All other systems: Not reviewed unless documented
Physical Exam
-
General: Well Developed, Well Nourished, No Apparent Distress, Comfortable, Conversant and Obese
HEENT: Normocephalic and Atraumatic
Respiratory: Clear to Auscultation and Non Labored Respirations; Negative Accessory Resp Muscle Use
Cardiac: Regular Rhythm and S1/S2
GI: Soft, Nontender, Nondistended and Normal Bowel Sounds
Skin: Warm and Dry
Neuro: Awake, Alert, Oriented and AO x 3
Psych: Calm and Intact Judgement/Insight
Data Reviewed
-
CT Scan: Report Reviewed by me
Labs: Labs Reviewed by me
[2025-03-05] MEDS: COMPAZINE 10 MG IV (14:12)
[2025-03-05] MEDS: BENADRYL 50 MG IV (14:13)
[2025-03-05 15:00] VITALS: BP 146/94
[2025-03-05] MEDS: REGLAN 10 MG IV ×2 (17:55→23:46)
[2025-03-05] MEDS: LOVENOX 40 MG SC (17:56)
[2025-03-05] MEDS: LIPITOR 40 MG PO (17:56)
[2025-03-05] MEDS: PEPCID 40 MG PO (21:04)
[2025-03-05 23:26] VITALS: BP 130/83
--- NOTE | 2025-03-06 06:47 | W.PN.HOSP.TC ---
Addendum entered and electronically signed by Michi Perrin MD 03/06/25 16:28:
Low normotensive pressures noted later in day. Possible white coat hypertension vs anxiety interfering with monitoring, patient anxious/eager to go home.
Nifedipine 30 mg QPM discontinued. Patient recommended to continue monitoring blood pressures at home with daily log and review with primary care provider in 1 week for further adjustment to antihypertensive regimen as necessary.
Addendum entered and electronically signed by Michi Perrin MD 03/06/25 16:09:
Nifedipine adjusted to 60 mg daily and 30 mg qpm for total 90 mg/day
Addendum entered and electronically signed by Michi Perrin MD 03/06/25 15:54:
Aspirin discontinued and new Lipitor started/continued as per Neuro
Original Note:
Today's Communication/Plan
-
discharge
Assessment / Plan
Assessment / Plan
Physical Exam
General: No acute distress, appears comfortable at this time
HEENT: NormoCephalic, Moist mucous membranes and Atraumatic
Respiratory: Clear
Cardiac: S1/S2 and Regular Rhythm; No Murmur or Rub
GI: Soft, Non Tender, Non Distended and Normal Bowel Sounds; No Organomegaly
Musculoskeletal: No Clubbing, No Cyanosis and No Edema
Skin: No Rash
Neuro: AO x 3 Conversant Coherent
Psych: Calm
49F Obesity Migraines HTN GERD Endometriosis anxiety/depression hx cannabis hyperemesis syndrome here for likely cannabis hyperemesis syndrome. Stay complicated with transient aphasia since resolved.
Transient aphasia., resolved rapidly
Hyperlipidemia
-suspect generalized anxiety disorder
� Aspirin Statin as per neurology
� TFTs WNL
-urine toxicology - cannabis, benzos
� Neuro consult appreciated started on ASA 81 mg daily and Lipitor 80 mg QPM, MRI neg for stroke, noted mild white matter disease b/l frontal lobes likely 2/2 migraine headaches, outpt sleep study recommended
Intractable vomiting resolved
� likely cannabis hyperemesis syndrome (patient notes symptoms started after recent marijuana use, reports she intends to abstain from now on)
� Less likely Zepbound effects as patient having bowel movements, bili nondistended
� Tolerating LRD
� PPIs okay daily
� follow up with GI/PCP to consider restarting Zepbound
#SIRS, more than likely noninfectious etiology
#Leukocytosis
� Most likely reactive
� Leukocytosis improved since admission though not resolved
- consistently afebrile
- repeat CBC in 1 week of discharge with primary care provider recommended.
#Metabolic acidosis
#NORBERT
resolved
� IVF completed
#Vit B12 deficiency
supplementation started
#Hypertension
� Continue metoprolol, increased nifedipine to 60mg BID, tolerating
#Depression
� Continue home medications
#GERD�PPI
#Hyperlipidemia
� started on Statin as per Neuro
#Mild Transaminitis Hyperbilirubinemia
Likely secondary to excessive vomiting
� Since resolved
#Full code
#DVT prophylaxis Lovenox
Medically stable for discharge home with outpatient follow up recommendations.
Total Time Preparing Discharge ___40____ minutes including examination of the patient, summary of the hospital stay, instructions for continuing care to all relevant caregivers; and preparation of discharge records, prescriptions, and referral
forms if necessary.
Anticipated Discharge: Today
Subjective/Interval History
-
Date of Service: March 06, 2025
No acute distress. Reports overall feeling well. Denies recent nausea vomiting abd pain. Tolerating diet. Eager to go home.
Objective Data
-
Labs:
Laboratory Results
03/06/25
06:00
WBC Pending
Hgb Pending
Hct Pending
Plt Count Pending
Sodium Pending
Potassium Pending
Chloride Pending
Carbon Dioxide Pending
BUN Pending
Creatinine Pending
Glucose Pending
Calcium Pending
Vital Signs:
Vital Signs
Temp Pulse Resp BP Pulse Ox
97.9 F 89 18 130/83 97
03/05/25 23:26 03/05/25 23:26 03/05/25 23:26 03/05/25 23:26 03/05/25 23:26
I&O
03/04/25 03/05/25 03/06/25
06:59 06:59 06:59
Intake Total 3210 / 3210 2160 / 2160
Balance 3210 / 3210 2160 / 2160
[2025-03-06 07:00] VITALS: BP 139/101
[2025-03-06] MEDS: EFFEXOR XR 225 MG PO (07:25)
[2025-03-06] MEDS: ASPIR LOW (ENTERIC COATED) 81 MG PO (07:26)
[2025-03-06] MEDS: PROTONIX 40 MG PO (07:26)
[2025-03-06] MEDS: TOPROL XL 50 MG PO (07:26)
[2025-03-06] MEDS: PROCARDIA XL (EXTENDED RELEASE) 60 MG PO (07:28)
[2025-03-06] MEDS: ABILIFY 10 MG PO (07:28)
[2025-03-06] MEDS: REGLAN 10 MG IV (07:29)
--- NOTE | 2025-03-06 08:24 | W.PN.NEURO.1 ---
Today's Communication / Plan
-
Advance atorvastatin from 40 mg as initially started to 80 mg due to severely abnormal LDL
Discontinue aspirin as there is no clear evidence of stroke acutely or chronically by imaging
Would provide outpatient control over routine headaches in the form of anti-� CGRP medication
Neuro Assessment/Plan
Assessment
Transient aphasia with MRI of brain negative results
Plan
Advance atorvastatin from 40 mg as initially started to 80 mg due to severely abnormal LDL
Discontinue aspirin as there is no clear evidence of stroke acutely or chronically by imaging
Would provide outpatient control over routine headaches in the form of anti-� CGRP medication
Will follow as needed.
Subjective/Objective
Subjective Data
Date of Service: March 06, 2025
Objective Data
Vital Signs
Temp Pulse Resp BP Pulse Ox
36.6 C 89 18 130/83 97
03/05/25 23:26 03/05/25 23:26 03/05/25 23:26 03/05/25 23:26 03/05/25 23:26
Sodium 141 mmol/L (135-145) 03/05/25 06:28
Potassium 3.8 mmol/L (3.5-5.1) 03/05/25 06:28
BUN 9 mg/dl (7-17) 03/05/25 06:28
Glucose 109 mg/dl (70-99) H 03/05/25 06:28
Calcium 10.0 mg/dl (8.4-10.2) 03/05/25 06:28
LDL Cholesterol, Calc Cancelled 03/04/25 11:25
Ur Buprenorphine Negative (Negative) 03/04/25 20:01
Patient Allergies
No Known Allergies Allergy (Verified 11/29/24 09:32)
Data Reviewed
-
MRI Head: Image Reviewed
Labs: Report Reviewed
Reviewed with: Physician
Old Records: Summarized
Past History
Past History
ED Past Medical History: GERD, HTN, Psychiatric (Anxiety, depression, Panic disorder) and Other (Migraine HAs, enteritis, Cyclical vomiting, Gastritis, Colitis, DVT, Endometriosis, )
ED Past Surgical History: and Other (Rhinoplasty/sinus surgery)
Social History
Tobacco: Non-smoker
Alcohol: Occasional
Drug: Marijuana (daily)
Personal:
Living: with family
Employment: Employed
Family History
Family History: Negative Diabetes, Hypertension or CAD
Medications
-
Medications:
Generic Name Dose Route Start Last Admin
Trade Name Freq PRN Reason Stop Dose Admin
Acetaminophen 650 mg 03/04/25 00:46
Acetaminophen 325 Mg Tablet PO 04/01/25 00:45
Q4HPRN PRN
mild pain/ABARCA/temp> 100.4F
Aripiprazole 10 mg 03/04/25 08:00 03/06/25 07:28
Aripiprazole 10 Mg Tablet PO 04/01/25 07:59 10 mg
DAILY ROBERT Administration
Atorvastatin Calcium 80 mg 03/06/25 18:00
Atorvastatin (Lipitor) 80 Mg Tablet PO 04/03/25 17:59
QPM ROBERT
Bisacodyl 10 mg 03/04/25 00:46
Bisacodyl 10 Mg Rectal Suppository RECTAL 04/01/25 00:45
[id number] PRN
constipation
Cyanocobalamin 1,000 mcg 03/06/25 14:00 03/06/25 15:30
Cyanocobalamin 1,000 Mcg Tablet PO 04/03/25 13:59 1,000 mcg
DAILY ROBERT Administration
Diphenhydramine HCl 50 mg 03/04/25 16:03 03/05/25 14:13
Diphenhydramine 50 Mg/Ml 1 Ml Vial IV 04/01/25 16:02 50 mg
Q6HPRN PRN Administration
NAUSEA/VOMITING
Enoxaparin Sodium 40 mg 03/04/25 18:00 03/05/25 17:56
Enoxaparin Sodium 40 Mg/0.4 Ml Syringe SC 04/01/25 17:59 40 mg
QPM ROBERT Administration
Famotidine 40 mg 03/04/25 00:46 03/05/25 21:04
Famotidine 40 Mg Tablet PO 04/01/25 00:45 40 mg
HS ROBERT Administration
Hydralazine HCl 5 mg 03/04/25 01:08 03/04/25 01:23
Hydralazine 20 Mg/Ml Vial IV 04/01/25 01:07 5 mg
Q4HPRN PRN Administration
SBP >170
Metoprolol Succinate 50 mg 03/04/25 08:00 03/06/25 07:26
Metoprolol 50 Mg Extended Release Tablet PO 04/01/25 07:59 50 mg
DAILY ROBERT Administration
Nifedipine 60 mg 03/05/25 20:00 03/06/25 07:28
Nifedipine 60 Mg Extended Release Tablet PO 04/02/25 19:59 60 mg
BID ROBERT Administration
Ondansetron HCl 4 mg 03/04/25 00:46 03/04/25 19:54
Ondansetron 4 Mg/2 Ml Vial IV 04/01/25 00:45 4 mg
Q6HPRN PRN Administration
nausea and vomiting
Pantoprazole Sodium 40 mg 03/04/25 08:00 03/06/25 07:26
Pantoprazole 40 Mg Delayed Release Tablet PO 04/01/25 07:59 40 mg
DAILY ROBERT Administration
Polyethylene Glycol 17 grams 03/04/25 00:46
Polyethylene Glycol Powder 17 Grams Packet PO 04/01/25 00:45
DAILYPRN PRN
constipation
Prochlorperazine Edisylate 10 mg 03/04/25 16:03 03/05/25 14:12
Prochlorperazine 10 Mg/2 Ml Vial IV 04/01/25 16:02 10 mg
Q8HPRN PRN Administration
NAUSEA/VOMITING
Senna/Docusate Sodium 1 tablet 03/04/25 00:46
Docusate W/Senna (Millie-Colace) Tablet PO 04/01/25 00:45
BIDPRN PRN
constipation
Sodium Chloride 0 flush 03/03/25 22:00
Sodium Chloride 0.9% (Flush) Syringe IV 03/31/25 21:59
PER PROTOCOL ROBERT
Venlafaxine HCl 225 mg 03/04/25 08:00 03/06/25 07:25
Venlafaxine 75 Mg Extended Release Capsule PO 04/01/25 07:59 225 mg
DAILY ROBERT Administration
[2025-03-06 08:26] LABS: Hematocrit 50.2 % (37.0-47.0); Hemoglobin 17.2 g/dL (12.0-16.0); Mean Corp Hgb Conc. 34.3 g/dL (33.0-37.0); Mean Corpuscular Hgb 30.7 pg (27.0-31.0); Mean Corpuscular Volume 89.6 fL (81.0-99.0); Mean Platelet Volume 10.3 fL (7.4-10.4); Platelet Count 324 10^3/uL (130-400); Red Cell Dist. Width 13.1 % (11.5-14.5); White Blood Cell Count 13.2 10^3/uL (4.8-10.8)
[2025-03-06 09:16] LABS: Blood Urea Nitrogen 14 mg/dl (7-17); Calcium 10.1 mg/dl (8.4-10.2); Carbon Dioxide 24 mmol/L (22-30); Chloride 100 mmol/L (98-107); Estimated Creatinine Clearance 87 ml/min; Glucose 102 mg/dl (70-99); Potassium 3.6 mmol/L (3.5-5.1); Sodium 142 mmol/L (135-145); eGFR > 60.00
--- NOTE | 2025-03-06 11:19 | CM ---
CM reviewed chart, patient seen bedside, initial assessment completed. Patient resides in a multiple story home with her four children, patient notes a few steps to enter home, no issues with steps. Patient denies use of DME, VN, or SNF. Patient
confirms PCP Fauzia Ospina, pharmacy [facility], confirms prescription coverage. CM will continue to follow for all discharge planning needs.
Plan; home no needs likely.
[2025-03-06 12:25] LABS: TSH Reflex To Free T4 0.83 uIU/ml (0.47-4.68)
[2025-03-06 12:29] LABS: Ferritin 38.7 ng/ml (6.24-137)
[2025-03-06 13:01] LABS: Folate 12.2 ng/ml (2.76-20); Vitamin B12 238 pg/ml (239-931)
[2025-03-06 15:00] VITALS: BP 98/72
[2025-03-06] MEDS: VITAMIN B-12 1000 MCG PO (15:30)
--- NOTE | 2025-03-06 16:17 | W.DCSUMMARY ---
Discharge Summary
Discharge Data
Date of Admission: 03/03/25
Date of Discharge: 03/06/25
-
Pending Results: No
Discharge Plan
-
Patient Disposition: Home (Routine Discharge)
Discharge Diagnosis/Procedures: Transient aphasia
Hyperlipidemia
cannabis hyperemesis syndrome
Obesity
Leukocytosis
Metabolic acidosis, Acute Kidney Injury, resolved
Vit B12 deficiency
Hypertension
Depression
GERD
Condition: Fair
Diet: Low Residue
Additional Diets: Ok to advance diet as tolerated
Activity: As tolerated
Driving Restrictions: As prior to admission
Bathing Restrictions: None
Blood Work: Repeat CBC with primary care provider in 1 week of discharge
Repeat Vitamin B12 level with primary care provider in 1 month of discharge.
Activity Restrictions/Additional Instructions:
Please follow up with primary care provider in 1 week of discharge and Neurology in 1 month of discharge.
Lipitor started for hyperlipidemia.
B12 supplementation started for deficiency.
Nifedipine 30 mg PO evening added to continue with home 60 mg daily (total 90 mg per day) for hypertension. Please keep a daily log of your blood pressures at home (blood pressure monitoring devices available for purchase in pharmacies if you do
not already have one) and review your log with your primary care provider in follow up for further adjustment of your antihypertensive regimen as necessary.
Hold of on resuming Zepbound until follow up with primary care provider or GI doctor to determine if safe to restart.
Please take medications as prescribed/recommended and follow up with primary care provider and/or other healthcare provider involved in your care for refills and/or further adjustment to your medication regimen as necessary.
Referrals:
Odilon Song MD [Active] - in one month
Fauzia Ospina CRNP [Family Provider] - in one week
Prescriptions:
New
atorvastatin 80 mg Tablet
80 mg PO QPM Qty: 30 0RF
cyanocobalamin (vitamin B-12) [Vitamin B-12] 1,000 mcg Tablet
1,000 mcg PO DAILY Qty: 30 0RF
nifedipine 30 mg Tablet Extended Release
30 mg PO QPM Qty: 30 0RF
Continued
aripiprazole [Abilify] 10 mg Tablet
10 mg PO DAILY
dexmethylphenidate 20 mg capsule,ER biphasic 50-50
20 mg PO DAILYPRN PRN (Reason: focus factor)
venlafaxine 225 mg Tablet Extended Release 24hr
225 mg PO DAILY
nifedipine 60 mg Tablet Extended Release 24hr
60 mg PO DAILY Qty: 30 0RF
Patient Comments:
no pharmacy records for 2024
metoprolol succinate [Toprol XL] 50 mg Tablet Extended Release 24 Hr
50 mg PO DAILY Qty: 30 0RF
Patient Comments:
no pharmacy records for 2024
pantoprazole [Protonix] 20 mg Tablet,Delayed Release (Dr/Ec)
20 mg PO DAILY Qty: 30 0RF
Patient Comments:
no pharmacy records for 2024
Held
Zepbound 2.5 mg/0.5 mL Solution
2.5 mg SC WE
Hold Instructions: Follow up with primary care provider or GI doctor to determine if safe to resume prior to restarting.
Discharge Orders:
Discharge Patient (As Directed); Ordered 03/06/25
Ordered By: Michi Perrin
Discharge Date and Time
Print Language: MAORI
== END 2025-03-06 16:58 | disposition home or self-care (01) | DRG 880 ==
LOC: 4 WEST ACU 22:10
PROVIDERS: Internal Medicine; Nurse Practitioner; Registered Nurse; ADMITTING PHYSICIAN Internal Medicine; ATTENDING PHYSICIAN Internal Medicine; EMERGENCY PHYSICIAN Emergency Medicine; FAMILY PHYSICIAN Nurse Practitioner; OTHER PHYSICIAN Psychiatry & Neurology Neurology
DX: F41.1 Generalized anxiety disorder (principal); R47.01 Aphasia; E87.20 Acidosis, unspecified; N17.9 Acute kidney failure, unspecified; K92.0 Hematemesis; R65.10 Systemic inflammatory response syndrome (SIRS) of non-infectious origin without acute organ dysfunction; E78.5 Hyperlipidemia, unspecified; E66.9 Obesity, unspecified; Z68.37 Body mass index [BMI] 37.0-37.9, adult; E53.8 Deficiency of other specified B group vitamins; I10 Essential (primary) hypertension; K21.9 Gastro-esophageal reflux disease without esophagitis; F32.9 Major depressive disorder, single episode, unspecified; Z79.899 Other long term (current) drug therapy; G43.909 Migraine, unspecified, not intractable, without status migrainosus; N80.9 Endometriosis, unspecified; F41.0 Panic disorder [episodic paroxysmal anxiety]; E86.0 Dehydration; F12.10 Cannabis abuse, uncomplicated; F90.9 Attention-deficit hyperactivity disorder, unspecified type; Z82.49 Family history of ischemic heart disease and other diseases of the circulatory system; M54.10 Radiculopathy, site unspecified; M54.30 Sciatica, unspecified side
CPT/HCPCS: 70450; 70496; 70498; 70551; 80048; 80053; 80061; 80306; 80307; 82607; 82728; 82746; 82962; 83605; 84145; 84443; 85025; 85027; 87040; 93005; 96361; 96374; 96375; 99285; Q9967

== ENCOUNTER 2025-03-10 06:41 | Observation (INO) | payer OTHER, SELFPAY ==
[2025-03-09 19:13] VITALS: BP 168/100
[2025-03-09 19:30] LABS: % Basophils 0.7 % (0-2); % Eosinophils 1.1 % (0-6); % Immature Granulocytes 0.5 % (0-0.5); % Lymphocytes 32.1 % (20.5-51.1); % Monocytes 9.6 % (1.7-9.3); Absolute Basophils 0.1 10^3/uL (0-0.2); Absolute Eosinophils 0.1 10^3/uL (0-0.7); Absolute Immature Granulocytes 0.1 10^3/uL (0-0.05); Absolute Lymphocytes 3.9 10^3/uL (1.2-3.4); Absolute Monocytes 1.2 10^3/uL (0.1-0.6); Absolute Neutrophils 6.9 10^3/uL (1.4-6.5); Hematocrit 47.2 % (37.0-47.0); Hemoglobin 17.3 g/dL (12.0-16.0); Mean Corp Hgb Conc. 36.7 g/dL (33.0-37.0); Mean Corpuscular Hgb 31.4 pg (27.0-31.0); Mean Corpuscular Volume 85.7 fL (81.0-99.0); Mean Platelet Volume 10.3 fL (7.4-10.4); Nucleated Red Blood Cells % 0 %; Platelet Count 369 10^3/uL (130-400); Red Blood Cell Count 5.51 10^6/uL (4.20-5.40); Red Cell Dist. Width 12.5 % (11.5-14.5); White Blood Cell Count 12.2 10^3/uL (4.8-10.8)
[2025-03-09 19:42] LABS: ALT (SGPT) 26 U/L (0-35); AST (SGOT) 33 U/L (14-36); Albumin 5.1 g/dl (3.5-5.0); Alkaline Phosphatase 123 U/L (38-126); Blood Urea Nitrogen 40 mg/dl (7-17); Calcium 10.6 mg/dl (8.4-10.2); Carbon Dioxide 27 mmol/L (22-30); Chloride 96 mmol/L (98-107); Glucose 124 mg/dl (70-99); Potassium 3.3 mmol/L (3.5-5.1); Sodium 138 mmol/L (135-145); Total Bilirubin 1.2 mg/dl (0.2-1.3); Total Protein 8.4 g/dl (6.3-8.2); eGFR 31.97
[2025-03-09 21:30] VITALS: BMI 34.2
--- NOTE | 2025-03-09 22:20 | ED.GENMED ---
History of Present Illness
General
Chief Complaint: Abdominal Symptoms
Source: patient
Exam Limitations: none
Time Seen by Provider: 03/09/25 22:12
Nursing documentation reviewed up to this point in time: agreed with
History of Present Illness
History of Present Illness:
This a pleasant 49 female that presents to the emergency department with nausea and vomiting. She states that she was recently admitted to this hospital for cannabinoid hyperemesis and/or Wegovy reaction. She stayed in the hospital for several
days and was discharged better. Since her discharge on Thursday, she states that she has been getting weaker and weaker and. She states that she has not used marijuana since prior to the first admission she has not had a Wegovy injection since prior
to that admission. Patient currently feels nauseated but is not vomiting. She reports no headache, blurry vision, dizziness or lightheadedness, chest pain, or shortness of breath
Past History
Past History
ED Past Medical History: GERD, HTN, Psychiatric (Anxiety, depression, Panic disorder) and Other (Migraine HAs, enteritis, Cyclical vomiting, Gastritis, Colitis, DVT, Endometriosis, )
ED Past Surgical History: and Other (Rhinoplasty/sinus surgery)
Social History
Tobacco: Non-smoker
Alcohol: Occasional
Drug: Marijuana (daily)
Personal:
Living: with family
Employment: Employed
Family History
Family History: Negative Diabetes, Hypertension or CAD
Review of Systems
Review of Systems
Allergies reviewed?: Yes
All Other Systems: ROS reviewed and negative except as documented in HPI and ROS
Constitutional: Reports no symptoms
EENT: Reports no symptoms
Respiratory: Reports no symptoms
Cardiac: Reports no symptoms
ABD/GI: Reports nausea
: Reports no symptoms
Musculoskeletal: Reports no symptoms
Skin: Reports no symptoms
Neurological: Reports weakness
Endocrine: Reports no symptoms
Hematologic/Lymphatic: Reports no symptoms
Psychiatric: Reports no symptoms
Phy Exam
General Physical Exam
General Presentation: well appearing and mild distress
General Skin: warm and dry
General Habitus: normal
General Mental: alert
General Hydration: appears well hydrated
ENT Exam
ENT Exam: EOMI, pharynx normal, neck supple and normocephalic
Eye Exam
Eye Exam: PERRL, cornea clear and conjunctiva normal
Cardiovascular Exam
Cardiovascular Exam: regular rate/rhythm, no edema, no murmur and normal peripheral pulses
Pulmonary Exam
Pulmonary Exam: lungs clear, no respiratory distress, no rales, no crackles, no rhonchi, no stridor, no wheezing and no cough
Gastrointestinal Exam
Gastrointestinal Exam: normal bowel sounds, non tender, soft, no organomegaly, no pulsatile mass and non distended
Neurological Exam
Neurological Exam: alert, oriented x3, no motor deficits and speech normal
Musculoskeletal Exam
Musculoskeletal Exam: full ROM and no edema
Skin Exam
Skin Exam: normal color, warm/dry, no rash and no petechia
Psychiatric Exam
Psychiatric Exam: normal mood/affect
Course
Orders/Labs/Results
Orders:
Orders
03/09/25 19:21
Complete Blood Count/With Diff Urgent
Comprehensive Metabolic Panel Urgent
03/09/25 22:19
0.9% Sodium Chloride 1000 ml [Nss] 1,000 ml IV BOLUS
Diphenhydramine [Benadryl] 25 mg IV NOW STA
Prochlorperazine [Compazine] 10 mg IV NOW STA
03/09/25 22:20
Test Result ONCE
03/09/25 22:29
HCG, Urine Qualitative Screen Urgent
Date Specimen was Collected: 03/09/25
Time Specimen was Collected: 22:28
Urinalysis Reflex To Culture Urgent
Date Specimen was Collected: 03/09/25
Time Specimen was Collected: 22:28
Urine Microscopic Reflex Cult Urgent
Urine Culture Urgent
SANIYA Source: U
Specimen Description:
Date Specimen was Collected: 03/09/25
Time Specimen was Collected: 22:28
03/10/25 03:09
0.9% Sodium Chloride 1000 ml [Nss] 1,000 ml IV BOLUS
Ondansetron Injectable [Zofran] 4 mg IV NOW STA
Abnormal Lab Results
03/09/25 03/09/25
19:21 22:29
WBC 12.2 H 10^3/uL
(4.8-10.8)
RBC 5.51 H 10^6/uL
(4.20-5.40)
Hgb 17.3 H g/dL
(12.0-16.0)
Hct 47.2 H %
(37.0-47.0)
MCH 31.4 H pg
(27.0-31.0)
Abs Immat Gran (auto) 0.1 H 10^3/uL
(0-0.05)
Absolute Neuts (auto) 6.9 H 10^3/uL
(1.4-6.5)
Absolute Lymphs (auto) 3.9 H 10^3/uL
(1.2-3.4)
Absolute Monos (auto) 1.2 H 10^3/uL
(0.1-0.6)
Monocytes % 9.6 H %
(1.7-9.3)
Potassium 3.3 L mmol/L
(3.5-5.1)
Chloride 96 L mmol/L
(98-107)
BUN 40 H mg/dl
(7-17)
Creatinine 1.9 H mg/dL
(0.6-1.0)
Glucose 124 H mg/dl
(70-99)
Calcium 10.6 H mg/dl
(8.4-10.2)
Total Protein 8.4 H g/dl
(6.3-8.2)
Albumin 5.1 H g/dl
(3.5-5.0)
Urine Ketones 3+ A
(Negative)
Ur Occult Blood Reflex 4+ A
(Negative)
Urine Bilirubin 1+ A
(Negative)
Leukocyte Esterase Rfl 1+ A
(Negative)
Urine WBC (Reflex) 11-15 A /HPF
(0-5)
Urine Bacteria (Reflex) Many A
(Negative)
Urine Albumin (Reflex) 3+ A
(Neg - Trace)
03/09/25 19:21
03/09/25 19:21
Vital Signs
Initial and Last Documented VS:
Initial Vital Signs
Temp Pulse Resp BP Pulse Ox
99.1 F 126 18 168/100 99
03/09/25 19:13 03/09/25 19:13 03/09/25 19:13 03/09/25 19:13 03/09/25 19:13
Last Documented Vital Signs
Temp Pulse Resp BP Pulse Ox
99.1 F 112 23 126/102 98
03/09/25 19:13 03/10/25 05:11 03/10/25 05:11 03/10/25 05:11 03/10/25 05:11
*Critical Care Note
Total Time (30-74mins, 75-104mins- exclusive of procedures): Not Applicable
Update Note
Update Note:
3:09 AM�patient still vomiting. Will give more fluids and Zofran
5:16 AM�patient feeling much better. She does have concerned that she will start vomiting again and have to return to the ER. She states that she has not been nauseated. She is not as tachycardic. Her heart rate was 96 when I first went in the
room and 103 when I left the room. I feel that anxiety is playing a factor. She will remain hydrated. She states that Compazine and a few hours later Zofran helped alleviate her nausea. I will send a prescription for both.
ED Attending Note
-
Portions of this chart may have been created with voice recognition software.� Occasional wrong word or��sound alike� substitutions may have occurred due to the inherent limitations of voice recognition software.
Discharge Plan
Departure
Patient Disposition: Home (Routine Discharge)
Date of Disposition: 03/10/25
Time of Disposition: 05:17
Patient with high blood pressure during this ER visit?: Yes
Discharge Problem:
Nausea & vomiting
Instructions: Dehydration, Adult (DC), Nausea and Vomiting, Adult (DC), BLOOD PRESSURE
Prescriptions:
No Action
aripiprazole [Abilify] 10 mg Tablet
10 mg PO DAILY
dexmethylphenidate 20 mg capsule,ER biphasic 50-50
20 mg PO DAILYPRN PRN (Reason: focus factor)
venlafaxine 225 mg Tablet Extended Release 24hr
225 mg PO DAILY
Zepbound 2.5 mg/0.5 mL Solution
2.5 mg SC WE
atorvastatin 80 mg Tablet
80 mg PO QPM Qty: 30 0RF
cyanocobalamin (vitamin B-12) [Vitamin B-12] 1,000 mcg Tablet
1,000 mcg PO DAILY Qty: 30 0RF
nifedipine 60 mg Tablet Extended Release 24hr
60 mg PO DAILY Qty: 30 0RF
Patient Comments:
no pharmacy records for 2024
metoprolol succinate [Toprol XL] 50 mg Tablet Extended Release 24 Hr
50 mg PO DAILY Qty: 30 0RF
Patient Comments:
no pharmacy records for 2024
pantoprazole [Protonix] 20 mg Tablet,Delayed Release (Dr/Ec)
20 mg PO DAILY Qty: 30 0RF
Patient Comments:
no pharmacy records for 2024
Referrals:
Fauzia Ospina CRNP [Family Provider] -
Activity Restrictions/Additional Instructions:
Thank You for choosing [facility].
It was a pleasure meeting you and taking part in your care. We hope for your continued healing and wellness.
Please read discharge instructions in their entirety. However, they are for general education and may not describe your exact diagnosis at discharge. Information on your ER visit and medical conditions were discussed with you along with appropriate
follow up information...
If indicated, please take your medications as instructed and indicated on discharge paperwork.
Please schedule a follow up appointment as directed. Call to schedule an appointment
Please return to the emergency department with ANY change in, persisting, or worsening of symptoms. If any of your symptoms do not improve, or persist, or become more severe within 6-12 hours, please return to the emergency department for further
care.
Please return to the emergency department if you develop a headache, neck pain/stiffness, fever greater than 100.4F, chest pain, shortness of breath, persistent nausea, vomiting, slurred speech, difficulty walking, numbness/tingling, weakness, signs
of infection or any other symptoms that are worrisome to you.
If you have any questions or concerns please do not hesitate to call the Hospital at or E-mail me directly at [email or web address]
Interventions
Interventions:
*Risk Screen - Suicide Last Done: 03/09/25 19:13
*General Assessment Last Done: 03/09/25 19:13
*Neglect/Abuse Screening Last Done: 03/09/25 19:13
*ED- Fall Risk Assessment Last Done: 03/09/25 21:30
*ED COVID-19 Vaccine History Last Done: 03/09/25 19:13
SQ-Hcjhjj-Gkvisqedum Assessment Last Done: 03/09/25 21:30
Discharge Date and Time
Print Language: ARABIC
[2025-03-09 22:38] LABS: Urine Albumin 3+ (Neg - Trace); Urine Bilirubin 1+ (Negative); Urine Character Slightly Cloudy (Clear); Urine Color Amber; Urine Glucose Negative (Negative); Urine Ketone 3+ (Negative); Urine Leukocyte 1+ (Negative); Urine Nitrite Negative (Negative); Urine Occult Blood 4+ (Negative); Urine Urobilinogen Negative (Neg - 1+)
[2025-03-09 22:39] LABS: HCG, Urine Qualitative Screen Negative
[2025-03-09] MEDS: COMPAZINE 10 MG IV (22:39)
[2025-03-09] MEDS: BENADRYL 25 MG IV (22:39)
[2025-03-09] MEDS: NSS 1000 IV (22:40)
[2025-03-09 22:55] LABS: Urine Bacteria Many (Negative); Urine Red Blood Cell 0-2 /HPF (0-2); Urine Squamous Cell >30 /LPF (Few)
[2025-03-10] MEDS: NSS 1000 IV (03:25)
[2025-03-10] MEDS: ZOFRAN 4 MG IV (03:26)
[2025-03-10 05:11] VITALS: BP 126/102
[2025-03-10 06:00] VITALS: BP 114/83
--- NOTE | 2025-03-10 06:08 | ED.GENMED ---
History of Present Illness
General
Chief Complaint: Abdominal Symptoms
Time Seen by Provider: 03/09/25 22:12
Past History
Past History
ED Past Medical History: GERD, HTN, Psychiatric (Anxiety, depression, Panic disorder) and Other (Migraine HAs, enteritis, Cyclical vomiting, Gastritis, Colitis, DVT, Endometriosis, )
ED Past Surgical History: and Other (Rhinoplasty/sinus surgery)
Social History
Tobacco: Non-smoker
Alcohol: Occasional
Drug: Marijuana (daily)
Personal:
Living: with family
Employment: Employed
Family History
Family History: Negative Diabetes, Hypertension or CAD
Course
Orders/Labs/Results
Orders:
Orders
03/09/25 19:21
Complete Blood Count/With Diff Urgent
Comprehensive Metabolic Panel Urgent
03/09/25 22:19
0.9% Sodium Chloride 1000 ml [Nss] 1,000 ml IV BOLUS
Diphenhydramine [Benadryl] 25 mg IV NOW STA
Prochlorperazine [Compazine] 10 mg IV NOW STA
03/09/25 22:20
Test Result ONCE
03/09/25 22:29
HCG, Urine Qualitative Screen Urgent
Date Specimen was Collected: 03/09/25
Time Specimen was Collected: 22:28
Urinalysis Reflex To Culture Urgent
Date Specimen was Collected: 03/09/25
Time Specimen was Collected: 22:28
Urine Microscopic Reflex Cult Urgent
Urine Culture Urgent
SANIYA Source: U
Specimen Description:
Date Specimen was Collected: 03/09/25
Time Specimen was Collected: 22:28
03/10/25 03:09
0.9% Sodium Chloride 1000 ml [Nss] 1,000 ml IV BOLUS
Ondansetron Injectable [Zofran] 4 mg IV NOW STA
Abnormal Lab Results
03/09/25 03/09/25
19:21 22:29
WBC 12.2 H 10^3/uL
(4.8-10.8)
RBC 5.51 H 10^6/uL
(4.20-5.40)
Hgb 17.3 H g/dL
(12.0-16.0)
Hct 47.2 H %
(37.0-47.0)
MCH 31.4 H pg
(27.0-31.0)
Abs Immat Gran (auto) 0.1 H 10^3/uL
(0-0.05)
Absolute Neuts (auto) 6.9 H 10^3/uL
(1.4-6.5)
Absolute Lymphs (auto) 3.9 H 10^3/uL
(1.2-3.4)
Absolute Monos (auto) 1.2 H 10^3/uL
(0.1-0.6)
Monocytes % 9.6 H %
(1.7-9.3)
Potassium 3.3 L mmol/L
(3.5-5.1)
Chloride 96 L mmol/L
(98-107)
BUN 40 H mg/dl
(7-17)
Creatinine 1.9 H mg/dL
(0.6-1.0)
Glucose 124 H mg/dl
(70-99)
Calcium 10.6 H mg/dl
(8.4-10.2)
Total Protein 8.4 H g/dl
(6.3-8.2)
Albumin 5.1 H g/dl
(3.5-5.0)
Urine Ketones 3+ A
(Negative)
Ur Occult Blood Reflex 4+ A
(Negative)
Urine Bilirubin 1+ A
(Negative)
Leukocyte Esterase Rfl 1+ A
(Negative)
Urine WBC (Reflex) 11-15 A /HPF
(0-5)
Urine Bacteria (Reflex) Many A
(Negative)
Urine Albumin (Reflex) 3+ A
(Neg - Trace)
03/09/25 19:21
03/09/25 19:21
Vital Signs
Initial and Last Documented VS:
Initial Vital Signs
Temp Pulse Resp BP Pulse Ox
99.1 F 126 18 168/100 99
03/09/25 19:13 03/09/25 19:13 03/09/25 19:13 03/09/25 19:13 03/09/25 19:13
Last Documented Vital Signs
Temp Pulse Resp BP Pulse Ox
99.1 F 112 23 126/102 98
03/09/25 19:13 03/10/25 05:11 03/10/25 05:11 03/10/25 05:11 03/10/25 05:11
ED Attending Note
-
Portions of this chart may have been created with voice recognition software.� Occasional wrong word or��sound alike� substitutions may have occurred due to the inherent limitations of voice recognition software.
Discharge Plan
Departure
Patient Disposition: Admit
Date of Disposition: 03/10/25
Time of Disposition: 05:17
Admit to: Med/Surg
Presentation/result/management discussed w/ accepting MD/DO: Hospitalist
Patient with high blood pressure during this ER visit?: Yes
Discharge Problem:
Nausea & vomiting
Instructions: Dehydration, Adult (DC), Nausea and Vomiting, Adult (DC), BLOOD PRESSURE
Prescriptions:
New
ondansetron 4 mg tablet,disintegrating
4 mg PO TID PRN (Reason: nausea and vomiting) Qty: 10 0RF
prochlorperazine maleate [Compazine] 10 mg tablet
10 mg PO Q8H PRN (Reason: nausea and vomiting) Qty: 10 0RF
No Action
aripiprazole [Abilify] 10 mg Tablet
10 mg PO DAILY
dexmethylphenidate 20 mg capsule,ER biphasic 50-50
20 mg PO DAILYPRN PRN (Reason: focus factor)
venlafaxine 225 mg Tablet Extended Release 24hr
225 mg PO DAILY
Zepbound 2.5 mg/0.5 mL Solution
2.5 mg SC WE
atorvastatin 80 mg Tablet
80 mg PO QPM Qty: 30 0RF
cyanocobalamin (vitamin B-12) [Vitamin B-12] 1,000 mcg Tablet
1,000 mcg PO DAILY Qty: 30 0RF
nifedipine 60 mg Tablet Extended Release 24hr
60 mg PO DAILY Qty: 30 0RF
Patient Comments:
no pharmacy records for 2024
metoprolol succinate [Toprol XL] 50 mg Tablet Extended Release 24 Hr
50 mg PO DAILY Qty: 30 0RF
Patient Comments:
no pharmacy records for 2024
pantoprazole [Protonix] 20 mg Tablet,Delayed Release (Dr/Ec)
20 mg PO DAILY Qty: 30 0RF
Patient Comments:
no pharmacy records for 2024
Referrals:
Fauzia Ospina CRNP [Family Provider] -
Activity Restrictions/Additional Instructions:
Thank You for choosing [facility].
It was a pleasure meeting you and taking part in your care. We hope for your continued healing and wellness.
Please read discharge instructions in their entirety. However, they are for general education and may not describe your exact diagnosis at discharge. Information on your ER visit and medical conditions were discussed with you along with appropriate
follow up information...
If indicated, please take your medications as instructed and indicated on discharge paperwork.
Please schedule a follow up appointment as directed. Call to schedule an appointment
Please return to the emergency department with ANY change in, persisting, or worsening of symptoms. If any of your symptoms do not improve, or persist, or become more severe within 6-12 hours, please return to the emergency department for further
care.
Please return to the emergency department if you develop a headache, neck pain/stiffness, fever greater than 100.4F, chest pain, shortness of breath, persistent nausea, vomiting, slurred speech, difficulty walking, numbness/tingling, weakness, signs
of infection or any other symptoms that are worrisome to you.
If you have any questions or concerns please do not hesitate to call the Hospital at or E-mail me directly at [email or web address]
Interventions
Interventions:
*Risk Screen - Suicide Last Done: 03/09/25 19:13
*General Assessment Last Done: 03/09/25 19:13
*Neglect/Abuse Screening Last Done: 03/09/25 19:13
*ED- Fall Risk Assessment Last Done: 03/09/25 21:30
*ED COVID-19 Vaccine History Last Done: 03/09/25 19:13
CD-Xqarmn-Eydrbtxbqi Assessment Last Done: 03/09/25 21:30
Discharge Date and Time
Print Language: SPANISH
--- NOTE | 2025-03-10 06:30 | HPS.HSE ---
Family Physician
-
Family Physician: Fauzia Ospina
Chief Complaint
-
N/V
History of Present Illness
Patient is a 49y F with PMH significant for hypertension and obesity who presents to ED complaining of N/V. Patient was recently hospitalized from 03/03 - 03/06 with similar symptoms. She states that she has never fully recovered since discharge
and has continued with nausea and approximately 3-4 episodes of N/V per day. No abdominal pain. No diarrhea. No fevers / chills. Patient has used neither marijuana nor Zepbound since her recent admission.
This evening she was having uncontrollable retching and presented to the ED for further evaluation.
Medical History
Past Medical History
Past Medical History: Reports Other
Additional Past Medical History:
Anxiety / Panic Disorder
THC Use Disorder
Cannabinoid Hyperemesis
Obesity
ADHD
GERD
Migraine Headaches
Hypertension
Past Surgical History: Reports Other
Additional Past Surgical History:
x 2
Rhinoplasty / Septoplasty
Social History
Tobacco: Non-smoker
Alcohol: None
Drug: Marijuana (Daily)
Personal: Single
Living: Alone
Family History
Family History: Not pertinent
Allergies / Home Medications
Allergies reflects when Allergies were last updated in [facility].
Home Medications with original date entered in [facility]
Allergy/Medication List:
Allergies
Allergy/AdvReac Type Severity Reaction Status Date / Time
No Known Allergies Allergy Verified 03/09/25 19:16
Home Medications
aripiprazole 10 mg tablet (Abilify) 10 mg PO DAILY 11/29/24
dexmethylphenidate 20 mg capsule,extended release [id number] 20 mg PO DAILYPRN PRN focus factor 03/03/25
venlafaxine 225 mg tablet,extended release 24 hr 225 mg PO DAILY 03/03/25
atorvastatin 80 mg tablet 80 mg PO QPM #30 tabs 03/06/25
cyanocobalamin (vitamin B-12) 1,000 mcg tablet (Vitamin B-12) 1,000 mcg PO DAILY #30 tabs 03/06/25
metoprolol succinate 50 mg tablet,extended release 24 hr (Toprol XL) 50 mg PO DAILY #30 tabs 03/06/25
nifedipine 60 mg tablet,extended release 24 hr 60 mg PO DAILY #30 tabs 03/06/25
pantoprazole 20 mg tablet,delayed release (Protonix) 20 mg PO DAILY #30 tabs 03/06/25
Review of Systems
-
History Source: Patient
A 12 point ROS was completed and negative except as noted: Yes
Constitutional: Denies Fever or Chills
Respiratory: Denies Cough or Trouble Breathing
Cardiac: Denies Chest Pain or Palpitations
Abdomen/GI: Reports Nausea and Vomiting; Denies Abdominal Pain or Diarrhea
: Denies Dysuria or Frequency
Musculoskeletal: Denies Joint Pain or Edema
Neurological: Denies Dizzy or Headache
Physical Exam
Vital Signs
Vital Signs
Temp Pulse Resp BP Pulse Ox
99.1 F 112 23 126/102 98
03/09/25 19:13 03/10/25 05:11 03/10/25 05:11 03/10/25 05:11 03/10/25 05:11
Physical Exam
General: Other (49y F in mild distress due to nausea.)
HEENT: Other (Dry MM. Neck supple.)
Respiratory: Clear; No Wheezes, Rales or Rhonchi
Cardiac: S1/S2 and Tachycardia; No Murmur
GI: Soft, Non Tender and Other (Bowel sounds are diminished throughout. No focal tenderness.)
Musculoskeletal: No Clubbing, No Cyanosis and No Edema
Neuro: AO x 3
Laboratory Results
-
03/09/25 19:21
03/09/25 19:21
Laboratory Results
Total Bilirubin 1.2 mg/dl (0.2-1.3) 03/09/25 19:21
AST 33 U/L (14-36) 03/09/25 19:21
ALT 26 U/L (0-35) 03/09/25 19:21
Alkaline Phosphatase 123 U/L (38-126) 03/09/25 19:21
Impression/Plan
-
A/P: Patient is a 49y F with PMH significant for hypertension and prior cannabinoid hyperemesis who presents to ED complaining of recurrent / persistent N/V.
Intractable N/V
- Observe overnight for further evaluation and treatment.
- Patient denies either THC use or Zepbound use since recent discharge.
- Supportive care with IVFs, antiemetics, etc.
- Clear liquids for now and advance diet as tolerated.
- Follow for clinical improvement.
NORBERT
Hypercalcemia
- SCr = 1.9 compared to recent baseline of 1.0.
- Likely secondary to volume / GI losses.
- IVF support and follow for improvement in renal function and lytes.
SIRS
- Patient with tachycardia, tachypnea and leukocytosis.
- Doubt infectious etiology / sepsis.
- Likely related to volume, nausea / distress, etc.
- Follow for improvement with volume expansion and relief of symptoms.
Benign Hypertension
- Stable. Continue usual meds with holding parameters.
Anxiety / Depression
- Stable. Continue current med regimen.
B12 Deficiency
- Continue daily supplementation.
DVT Prophylaxis: SCDs
Code Status: Full
[2025-03-10 07:30] VITALS: BP 178/103
[2025-03-10 08:04] VITALS: BMI 36.1
[2025-03-10] MEDS: LR 1000 IV ×2 (08:14→16:56)
--- NOTE | 2025-03-10 08:14 | W.PN.HOSP.TC ---
Today's Communication/Plan
-
Continue supportive care for nausea/vomiting
Assessment / Plan
Assessment / Plan
Physical Exam
General: Not in acute distress
HEENT: Normocephalic
Respiratory: Clear to Auscultation Bilaterally
Cardiac: S1/S2 and Tachycardia
GI: Soft, Non Tender and Other (Bowel sounds are diminished throughout. No focal tenderness.)
Musculoskeletal: No Cyanosis and No Edema
Neuro: AAO x 3
Assessment/Plan
49 y/o female with past medical history significant for hypertension and obesity who presented complaining of N/V. Patient was recently hospitalized from 03/03/25 - 03/06/25 with similar symptoms. She stated that she has never fully recovered since
discharge and has continued with nausea and approximately 3-4 episodes of N/V per day. No abdominal pain. No diarrhea. No fevers / chills. Patient has used neither marijuana nor Zepbound since her recent admission.
On the evening of March 09, 2025, she was having uncontrollable retching and presented to the ED for further evaluation.
Intractable N/V
- Urine came back positive for marijuana -- but patient last use Marijuana about March 03, 2025
- Zepbound last use was March 01, 2025 -- patient stopped taking Zepbound, which she was taking for weight loss
- Although patient has stopped using marijuana -- symptoms can still be persisting from that
- Supportive care with IVFs, antiemetics, etc.
- Clear liquids for now and advance diet as tolerated.
- Follow for clinical improvement.
NORBERT
Hypercalcemia
- SCr = 1.9---->1.3 compared to recent baseline of 1.0.
- Likely secondary to volume / GI losses.
- IVF support and follow for improvement in renal function and lytes.
SIRS
- Patient with tachycardia, tachypnea and leukocytosis.
- Doubt infectious etiology / sepsis.
- Likely related to volume, nausea / distress, etc.
- Follow for improvement with volume expansion and relief of symptoms.
Transient aphasia., resolved rapidly (DURING RECENT HOSPITALIZATION)
Hyperlipidemia
-suspect generalized anxiety disorder
�Statin as per neurology -- continue high intensity statin
�Prior hospitalization notes mentioned Neuro consult appreciated started Lipitor 80 mg QPM (Aspirin stopped), MRI neg for stroke, noted mild white matter disease b/l frontal lobes likely 2/2 migraine headaches, outpt sleep study recommended
-Patient is supposed to follow-up with outpatient neurology in a few weeks.
Benign Hypertension
- Stable. Continue Metoprolol and Nifedipine.
Anxiety / Depression
- Stable. Continue current med regimen.
B12 Deficiency
- Continue daily supplementation.
GERD
- Continue Protonix
DVT Prophylaxis: SCDs
Code Status: Full
This is a non-billable note.
Anticipated Discharge: 24 - 48 hours
Subjective/Interval History
-
Date of Service: March 10, 2025
Patient was seen and examined. She reported that she still has trouble keeping things, still with nausea and vomiting.
Objective Data
-
Vital Signs:
Vital Signs
Temp Pulse Resp BP Pulse Ox
99.1 F 124 21 114/83 100
03/09/25 19:13 03/10/25 06:45 03/10/25 06:45 03/10/25 06:00 03/10/25 06:45
[2025-03-10] MEDS: COMPAZINE 5 MG IV (08:15)
[2025-03-10] MEDS: EFFEXOR XR 225 MG PO (08:17)
[2025-03-10] MEDS: VITAMIN B-12 1000 MCG PO (08:17)
[2025-03-10] MEDS: ABILIFY 10 MG PO (08:17)
[2025-03-10] MEDS: TOPROL XL 50 MG PO (08:18)
[2025-03-10] MEDS: PROCARDIA XL (EXTENDED RELEASE) 60 MG PO (08:18)
[2025-03-10] MEDS: PROTONIX 20 MG PO (08:18)
[2025-03-10 09:06] LABS: Hematocrit 42.1 % (37.0-47.0); Mean Corp Hgb Conc. 35.6 g/dL (33.0-37.0); Mean Corpuscular Hgb 31.1 pg (27.0-31.0); Mean Corpuscular Volume 87.2 fL (81.0-99.0); Mean Platelet Volume 10.8 fL (7.4-10.4); Platelet Count 312 10^3/uL (130-400); Red Blood Cell Count 4.83 10^6/uL (4.20-5.40); Red Cell Dist. Width 12.5 % (11.5-14.5); White Blood Cell Count 11.3 10^3/uL (4.8-10.8)
[2025-03-10 11:03] LABS: Blood Urea Nitrogen 31 mg/dl (7-17); Calcium 9.1 mg/dl (8.4-10.2); Carbon Dioxide 22 mmol/L (22-30); Chloride 100 mmol/L (98-107); Estimated Creatinine Clearance 59 ml/min; Glucose 139 mg/dl (70-99); Magnesium 1.6 mg/dl (1.6-2.3); Potassium 3.5 mmol/L (3.5-5.1); Sodium 139 mmol/L (135-145); eGFR 50.41
--- NOTE | 2025-03-10 11:05 | CM ---
Patient was admitted under OBS, OBS letter provided to patient and signed. Patient lives alone and she has shared custody of her 4 children, patient's mother is currently watching children, patient has 3, 16 y.o's and a 13 y.o, patient reports she
was independent with adl's and ambulation, no dme, patient drives, home when stable, no needs.
Plan; Home when stable No Needs
PCP: Fauzia Ospina
Pharmacy: [facility] in [place]
--- NOTE | 2025-03-10 11:26 | PTCARENOTE ---
Rec'd pt from ER at 0810. walked from stretcher to bed. Denies pain. Did complain of nausea and was given prn Compazine. LR started at 125ml/hr per order. LAC continually beeping so IV nurse placed new access. oriented to room. Tolerating clear
liquids. Call day in reach
[2025-03-10 12:11] LABS: Amphetamines Negative (Negative); Barbiturates Negative (Negative); Benzodiazepines Negative (Negative); Buprenorphine Negative (Negative); Cocaine Negative (Negative); Marijuana Positive (Negative); Methadone Negative (Negative); Methamphetamines Negative (Negative); Opiates Negative (Negative); Phencyclidine Negative (Negative); Tricyclic Antidepressants Negative (Negative)
[2025-03-10 15:00] VITALS: BP 122/74
[2025-03-10] MEDS: HEPARIN 5000 UNITS SC (19:56)
[2025-03-10] MEDS: LIPITOR 80 MG PO (22:17)
[2025-03-10 23:42] VITALS: BP 101/67
[2025-03-11] MEDS: LR 1000 IV (01:10)
[2025-03-11 07:00] VITALS: BP 111/60
[2025-03-11 07:25] LABS: Blood Urea Nitrogen 16 mg/dl (7-17); Calcium 9.1 mg/dl (8.4-10.2); Carbon Dioxide 31 mmol/L (22-30); Chloride 103 mmol/L (98-107); Estimated Creatinine Clearance 64 ml/min; Glucose 87 mg/dl (70-99); Magnesium 1.7 mg/dl (1.6-2.3); Potassium 3.2 mmol/L (3.5-5.1); Sodium 141 mmol/L (135-145); eGFR 55.49
[2025-03-11] MEDS: ABILIFY 10 MG PO (08:10)
[2025-03-11] MEDS: PROTONIX 20 MG PO (08:10)
[2025-03-11] MEDS: EFFEXOR XR 225 MG PO (08:10)
[2025-03-11] MEDS: PROCARDIA XL (EXTENDED RELEASE) 60 MG PO (08:16)
[2025-03-11] MEDS: HEPARIN 5000 UNITS SC (08:17)
[2025-03-11] MEDS: VITAMIN B-12 1000 MCG PO (08:17)
[2025-03-11] MEDS: TOPROL XL 50 MG PO (08:17)
[2025-03-11] MEDS: KCL 40 MEQ PO (08:26)
[2025-03-11 09:20] LABS: Hematocrit 33.5 % (37.0-47.0); Hemoglobin 11.7 g/dL (12.0-16.0); Mean Corp Hgb Conc. 34.9 g/dL (33.0-37.0); Mean Corpuscular Volume 88.6 fL (81.0-99.0); Mean Platelet Volume 10.4 fL (7.4-10.4); Platelet Count 213 10^3/uL (130-400); Red Blood Cell Count 3.78 10^6/uL (4.20-5.40); Red Cell Dist. Width 12.9 % (11.5-14.5)
--- NOTE | 2025-03-11 09:53 | CM ---
Chart reviewed and plan is to home no needs.
Plan; Home today.
--- NOTE | 2025-03-11 10:56 | W.PN.HOSP.TC ---
Today's Communication/Plan
-
dc
Assessment / Plan
Assessment / Plan
Physical Exam
General: Not in acute distress
HEENT: Normocephalic
Respiratory: Clear to Auscultation Bilaterally
Cardiac: S1/S2 and Tachycardia
GI: Soft, Non Tender, normal BS.
Musculoskeletal: No Cyanosis and No Edema
Neuro: AAO x 3
Psych: calm
Assessment/Plan
49 y/o female with past medical history significant for hypertension and obesity who presented complaining of N/V. Patient was recently hospitalized from 03/03/25 - 03/06/25 with similar symptoms. She stated that she has never fully recovered since
discharge and has continued with nausea and approximately 3-4 episodes of N/V per day. No abdominal pain. No diarrhea. No fevers / chills. Patient has used neither marijuana nor Zepbound since her recent admission.
On the evening of March 09, 2025, she was having uncontrollable retching and presented to the ED for further evaluation.
Intractable N/V
Resolved
tolerated diet
- Urine came back positive for marijuana -- but patient last use Marijuana about March 03, 2025
- last use was March 01, 2025 -- patient stopped taking Zepbound, which she was taking for weight loss
- Although patient has stopped using marijuana -- symptoms can still be persisting from that
- Supportive care with IVFs, antiemetics, etc.
- no fever
She requested oral Zofran as needed upon dc
She reports willingness to quit marijuana as she feels it is causing her N/V.
NORBERT
Creatinine came down
Good urine out put
Advised to f/w PCP to repeat blood work
SIRS
Resolved
- Patient with tachycardia, tachypnea and leukocytosis.
- Doubt infectious etiology / sepsis.
- Likely related to volume, nausea / distress, etc.
Urine culture is negative
Hyperlipidemia
Hypokalemia
replaced
Benign Hypertension
- Stable. Continue Metoprolol and Nifedipine.
Anxiety / Depression
- Stable. Continue current med regimen.
B12 Deficiency
- Continue daily supplementation.
GERD
- Continue Protonix
DVT Prophylaxis: SCDs
Code Status: Full
Total discharge time spent to see the patient, examine the patient, review data and lab result, discuss discharge plan with the patient, nursing staff around 65 minutes
Anticipated Discharge: Today
Subjective/Interval History
-
Date of Service: March 11, 2025
She is feeling better
No nausea
She wants to go home
She wants solid food
No fever
No chest pain
No headache
Objective Data
-
Labs:
Laboratory Results
03/11/25
06:38
WBC 6.0
Hgb 11.7 L D
Hct 33.5 L
Plt Count 213 D
Sodium 141
Potassium 3.2 L
Chloride 103
Carbon Dioxide 31 H
BUN 16
Creatinine 1.2 H
Glucose 87
Calcium 9.1
Vital Signs:
Vital Signs
Temp Pulse Resp BP Pulse Ox
98.3 F 86 20 111/60 97
03/11/25 07:00 03/11/25 08:17 03/11/25 07:00 03/11/25 08:17 03/11/25 07:00
I&O
03/10/25 03/11/25 03/12/25
06:59 06:59 06:59
Intake Total 2454 / 2454
Balance 2454 / 245
[2025-03-11 11:30] VITALS: BP 115/70
--- NOTE | 2025-03-11 14:13 | W.DCSUMMARY ---
Discharge Summary
Discharge Data
Date of Admission: 03/09/25
Date of Discharge: 03/11/25
-
Pending Results: No
Hospital Course
49 years old female presented to the hospital with nausea and vomiting. She did not have fever. She reported similar symptoms in previous hospitalization with the same symptoms. She denied abdominal pain. No diarrhea. Patient was admitted to
the hospital and received intravenous fluid with supportive care. She was noticed to have mild renal insufficiency and hypokalemia. Her kidney function improved with IV fluid. Urine drug screen was positive for marijuana. Patient reported
similar symptoms associated with marijuana use in the past. Patient denied having uncontrolled anxiety and reported that her marijuana use currently recreational. Urine culture did not show any growth. Leukocytosis resolved without need for
antibiotics. Patient started to feel better and diet was advanced. She tolerated diet well. She remained hemodynamically stable. Patient was counseled to avoid marijuana use and follow-up with her primary care doctor to repeat the blood work.
Patient verbalized understanding. Patient was discharged home in a stable condition.
Discharge Plan
-
Patient Disposition: Home (Routine Discharge)
Discharge Diagnosis/Procedures: Intractable nausea and vomiting with dehydration, acute kidney injury, hypokalemia and leukocytosis.
Leukocytosis resolved. Replaced potassium. Kidney function improved.
We highly recommend to follow-up with the primary care doctor and repeat the blood work to check
Potassium level and kidney function.
Diet: As tolerated
Referrals:
Fauzia Ospina CRNP [Family Provider] - in one to two weeks
Prescriptions:
New
ondansetron HCl 4 mg tablet
4 mg PO Q8H PRN (Reason: nausea and vomiting) Qty: 10 0RF
Continued
aripiprazole [Abilify] 10 mg Tablet
10 mg PO DAILY
venlafaxine 225 mg Tablet Extended Release 24hr
225 mg PO DAILY
atorvastatin 80 mg Tablet
80 mg PO QPM Qty: 30 0RF
nifedipine 60 mg Tablet Extended Release 24hr
60 mg PO DAILY Qty: 30 0RF
Patient Comments:
no pharmacy records for 2024
metoprolol succinate [Toprol XL] 50 mg Tablet Extended Release 24 Hr
50 mg PO DAILY Qty: 30 0RF
Patient Comments:
no pharmacy records for 2024
pantoprazole [Protonix] 20 mg Tablet,Delayed Release (Dr/Ec)
20 mg PO DAILY Qty: 30 0RF
Patient Comments:
no pharmacy records for 2024
Discontinued
dexmethylphenidate 20 mg capsule,ER biphasic 50-50
20 mg PO DAILYPRN PRN (Reason: focus factor)
Gruns
8 gummy PO DAILY
Discharge Orders:
Discharge Patient (As Directed); Ordered 03/11/25
Ordered By: Joel Nye
Discharge Date and Time
Discharge Date/Time: 03/11/25 12:19
Print Language: ROMANSH
== END 2025-03-11 12:19 | disposition home or self-care (01) ==
LOC: 4 WEST ACU 06:41
PROVIDERS: Emergency Medicine; Hospitalist; ADMITTING PHYSICIAN Hospitalist; ATTENDING PHYSICIAN Internal Medicine; EMERGENCY PHYSICIAN Student in an Organized Health Care Education/Training Program; FAMILY PHYSICIAN Nurse Practitioner
DX: R11.2 Nausea with vomiting, unspecified (principal); E86.0 Dehydration; R10.9 Unspecified abdominal pain; R65.10 Systemic inflammatory response syndrome (SIRS) of non-infectious origin without acute organ dysfunction; F12.90 Cannabis use, unspecified, uncomplicated; E83.52 Hypercalcemia; R47.01 Aphasia; E87.6 Hypokalemia; R06.82 Tachypnea, not elsewhere classified; R00.0 Tachycardia, unspecified; D72.829 Elevated white blood cell count, unspecified; F41.9 Anxiety disorder, unspecified; F41.0 Panic disorder [episodic paroxysmal anxiety]; N80.9 Endometriosis, unspecified; E66.9 Obesity, unspecified; F32.A Depression, unspecified; K21.9 Gastro-esophageal reflux disease without esophagitis; N17.9 Acute kidney failure, unspecified; I10 Essential (primary) hypertension; F90.9 Attention-deficit hyperactivity disorder, unspecified type; E78.5 Hyperlipidemia, unspecified; E53.8 Deficiency of other specified B group vitamins; Z86.718 Personal history of other venous thrombosis and embolism; Z87.19 Personal history of other diseases of the digestive system; Z79.85 Long-term (current) use of injectable non-insulin antidiabetic drugs; Z60.2 Problems related to living alone; Z68.36 Body mass index [BMI] 36.0-36.9, adult; Z79.899 Other long term (current) drug therapy
CPT/HCPCS: 80048; 80053; 80306; 81003; 81015; 81025; 83735; 85025; 85027; 87086; 96361; 96374; 96375; 99285; G0378

== ENCOUNTER 2025-05-16 10:12 | Inpatient (IN) | payer OTHER, SELFPAY ==
[2025-05-12 22:34] VITALS: BP 177/110
[2025-05-13] VITALS (13 sets, daily range): BP systolic 132–184; BP diastolic 88–109; BMI 25.9
--- NOTE | 2025-05-13 01:35 | ED.GENMED ---
History of Present Illness
<Santino Shell MD, Resident - Last Filed: 05/13/25 05:50>
General
Chief Complaint: Abdominal Symptoms
Source: patient
Exam Limitations: none
Time Seen by Provider: 05/13/25 01:36
Nursing documentation reviewed up to this point in time: agreed with
History of Present Illness
History of Present Illness:
This is a 49-year-old female presenting to the emergency department with complaints of nausea and vomiting. She states that symptoms started today around 10 in the morning. She was recently admitted to the hospital for cannabinoid hyperemesis.
She quit after the hospital stay however restarted this week her last use was on Thursday. Patient reported multiple episodes of vomiting even before coming to the hospital. She continues to be nauseated. Denies any systemic symptoms including
headache, trouble breathing, chest pain, lightheadedness, any vision changes.
Denies any recent changes in the medical history.
Past History
<Santino Shell MD, Resident - Last Filed: 05/13/25 05:50>
Past History
ED Past Medical History: GERD, HTN, Psychiatric (Anxiety, depression, Panic disorder) and Other (Migraine HAs, enteritis, Cyclical vomiting, Gastritis, Colitis, DVT, Endometriosis, )
ED Past Surgical History: and Other (Rhinoplasty/sinus surgery)
Social History
Tobacco: Non-smoker
Alcohol: Occasional
Drug: Marijuana (daily; restarted few days ago)
Personal:
Living: with family
Employment: Employed
Family History
Family History: Negative Diabetes, Hypertension or CAD
Review of Systems
<Santino Shell MD, Resident - Last Filed: 05/13/25 05:50>
Review of Systems
Allergies reviewed?: Yes
Constitutional: Reports no symptoms
EENT: Reports no symptoms
Respiratory: Reports no symptoms
Cardiac: Reports no symptoms
ABD/GI: Reports abdominal pain (Mild abdominal discomfort), nausea and vomiting
: Reports no symptoms
Musculoskeletal: Reports no symptoms
Skin: Reports no symptoms
Neurological: Reports no symptoms
Endocrine: Reports no symptoms
Hematologic/Lymphatic: Reports no symptoms
Psychiatric: Reports other (Anxious)
Phy Exam
<Santino Shell MD, Resident - Last Filed: 05/13/25 05:50>
General Physical Exam
General Presentation: well appearing and mild distress
General Skin: warm and dry
General Habitus: normal
General Mental: alert
General Hydration: appears well hydrated
ENT Exam
ENT Exam: EOMI, pharynx normal, neck supple and normocephalic
Cardiovascular Exam
Cardiovascular Exam: regular rate/rhythm, no edema, no murmur and normal peripheral pulses
Pulmonary Exam
Pulmonary Exam: lungs clear, no respiratory distress, no rales, no crackles, no rhonchi, no stridor, no wheezing and no cough
Gastrointestinal Exam
Gastrointestinal Exam: normal bowel sounds, non tender, soft, no organomegaly, no pulsatile mass and non distended
Neurological Exam
Neurological Exam: alert, oriented x3, no motor deficits and speech normal
Musculoskeletal Exam
Musculoskeletal Exam: full ROM and no edema
Skin Exam
Skin Exam: normal color, warm/dry, no rash and no petechia
Psychiatric Exam
Psychiatric Exam: normal mood/affect
Course
<Santino Shell MD, Resident - Last Filed: 05/13/25 05:50>
Orders/Labs/Results
Orders:
Orders
05/13/25 01:20
IV Insert/Care/Rem.- Treatment PRN
05/13/25 01:33
Complete Blood Count/With Diff Urgent
Comprehensive Metabolic Panel Urgent
HCG, Serum Qualitative Screen Urgent
Comment: ADDED
05/13/25 01:37
EKG [Electrocardiogram (*1)] Stat
Reason for Study: QTc Monitoring
EKG- Treatment ONCE
05/13/25 01:38
Add On- LAB Urgent
Tests Added?: B-hcg
05/13/25 01:55
Diphenhydramine [Benadryl] 25 mg IV NOW STA
Prochlorperazine [Compazine] 10 mg IV NOW STA
05/13/25 02:00
Lactated Ringers [Lr] 1,000 ml IV Wide Open mls/hr
05/13/25 02:54
Lactated Ringers [Lr] 1,000 ml IV BOLUS
05/13/25 04:54
Basic Metabolic Panel Urgent
Abnormal Lab Results
05/13/25 05/13/25
01:33 04:54
WBC 18.1 H 10^3/uL
(4.8-10.8)
MCH 31.1 H pg
(27.0-31.0)
MPV 10.8 H fL
(7.4-10.4)
Abs Immat Gran (auto) 0.1 H 10^3/uL
(0-0.05)
Absolute Neuts (auto) 16.6 H 10^3/uL
(1.4-6.5)
Absolute Lymphs (auto) 0.9 L 10^3/uL
(1.2-3.4)
Immature Gran % 0.6 H %
(0-0.5)
Neutrophils % 91.7 H %
(42.2-75.2)
Lymphocytes % 4.8 L %
(20.5-51.1)
Chloride 110 H mmol/L
(98-107)
Carbon Dioxide 9 L* mmol/L 16 L mmol/L
(22-30) (22-30)
Glucose 172 H mg/dl 129 H mg/dl
(70-99) (70-99)
Total Bilirubin 1.5 H mg/dl
(0.2-1.3)
Alkaline Phosphatase 130 H U/L
(38-126)
Total Protein 8.6 H g/dl
(6.3-8.2)
Albumin 5.6 H g/dl
(3.5-5.0)
05/13/25 01:33
05/13/25 04:54
Vital Signs
Initial and Last Documented VS:
Initial Vital Signs
Temp Pulse Resp BP Pulse Ox
97.3 F 104 24 177/110 100
05/12/25 22:34 05/12/25 22:34 05/12/25 22:34 05/12/25 22:34 05/12/25 22:34
Last Documented Vital Signs
Temp Pulse Resp BP Pulse Ox
97.3 F 104 24 184/107 99
05/12/25 22:34 05/12/25 22:34 05/12/25 22:34 05/13/25 04:30 05/13/25 04:45
<Elia Mccabe, DO - Last Filed: 05/13/25 04:11>
Orders/Labs/Results
Orders:
Orders
05/13/25 01:20
IV Insert/Care/Rem.- Treatment PRN
05/13/25 01:33
Complete Blood Count/With Diff Urgent
Comprehensive Metabolic Panel Urgent
HCG, Serum Qualitative Screen Urgent
Comment: ADDED
05/13/25 01:37
EKG [Electrocardiogram (*1)] Stat
Reason for Study: QTc Monitoring
EKG- Treatment ONCE
05/13/25 01:38
Add On- LAB Urgent
Tests Added?: B-hcg
05/13/25 01:55
Diphenhydramine [Benadryl] 25 mg IV NOW STA
Prochlorperazine [Compazine] 10 mg IV NOW STA
05/13/25 02:00
Lactated Ringers [Lr] 1,000 ml IV Wide Open mls/hr
05/13/25 02:54
Lactated Ringers [Lr] 1,000 ml IV BOLUS
05/13/25 04:54
Basic Metabolic Panel Urgent
Abnormal Lab Results
05/13/25 05/13/25
01:33 04:54
WBC 18.1 H 10^3/uL
(4.8-10.8)
MCH 31.1 H pg
(27.0-31.0)
MPV 10.8 H fL
(7.4-10.4)
Abs Immat Gran (auto) 0.1 H 10^3/uL
(0-0.05)
Absolute Neuts (auto) 16.6 H 10^3/uL
(1.4-6.5)
Absolute Lymphs (auto) 0.9 L 10^3/uL
(1.2-3.4)
Immature Gran % 0.6 H %
(0-0.5)
Neutrophils % 91.7 H %
(42.2-75.2)
Lymphocytes % 4.8 L %
(20.5-51.1)
Chloride 110 H mmol/L
(98-107)
Carbon Dioxide 9 L* mmol/L 16 L mmol/L
(22-30) (22-30)
Glucose 172 H mg/dl 129 H mg/dl
(70-99) (70-99)
Total Bilirubin 1.5 H mg/dl
(0.2-1.3)
Alkaline Phosphatase 130 H U/L
(38-126)
Total Protein 8.6 H g/dl
(6.3-8.2)
Albumin 5.6 H g/dl
(3.5-5.0)
07/05/25 01:33
05/13/25 04:54
Vital Signs
Initial and Last Documented VS:
Initial Vital Signs
Temp Pulse Resp BP Pulse Ox
97.3 F 104 24 177/110 100
05/12/25 22:34 05/12/25 22:34 05/12/25 22:34 05/12/25 22:34 05/12/25 22:34
Last Documented Vital Signs
Temp Pulse Resp BP Pulse Ox
97.3 F 104 24 184/107 99
05/12/25 22:34 05/12/25 22:34 05/12/25 22:34 05/13/25 04:30 05/13/25 04:45
<Santino Shell MD, Resident - Last Filed: 05/13/25 05:50>
MDM/Problems Addressed
Differential Diagnosis Includes:
cannabinoid hyperemesis vs less likely due to gastritis vs less likely appendicitis
MDM/Problems Addressed:
will get cbc, cmp, b-hcg, EKG.
compazine and benadryl for nausea/vomiting.
1 L LR bolus.
SIRS; Patient with tachycardia, tachypnea and leukocytosis. Doubt infectious etiology / sepsis. Likely related to volume, nausea / distress, etc.
update 2:30am; patient feeling slightly better
will give another bag of LR and repeat BMP
update : Repeat BMP showed improvement in acidosis. Patient feeling moderately better. Discussed discharge, patient requested admission as she is still not 100% feeling good, she feels like if she goes home she will have to come back in the
emergency department.
<Santino Shell MD, Resident - Last Filed: 05/13/25 05:50>
*Pulse Oximetry
SaO2: 100
Oxygen Mode of Delivery: Room air
Patient hypoxic: no
*Critical Care Note
Total Time (30-74mins, 75-104mins- exclusive of procedures): Not Applicable
ED Attending Note
<Santino Shell MD, Resident - Last Filed: 05/13/25 05:50>
-
Portions of this chart may have been created with voice recognition software.� Occasional wrong word or��sound alike� substitutions may have occurred due to the inherent limitations of voice recognition software.
<Elia Mccabe, - Last Filed: 05/13/25 04:11>
ED Attending Note
Patient seen and examined by attending physician: Yes
I performed a history and physical exam of patient and discussed management with resident, I reviewed resident's note and agree with documented findings and plan of care.: Yes
ED Attending Note:
I have reviewed and agree with history and treatment plan by Santino Shell MD. My exam revealed
Physical Exam
General: no apparent distress, not acutely ill
Neck: supple. no meningeal signs. normal posterior pharynx
Heart: s1/s2 tachycardia, no murmur. equal radial
pulses.
HEENT: Pupils equal round reactive to light, EOMI
Lungs: no acute respiratory distress. clear bilaterally
Abdomen: normal bowel sounds. not tender. no CVAT
Neuro: alert and oriented. no focal neurological deficits cranial nerves II through XII intact
Skin: no rash
Psychiatric: well kept. interactive and cooperative
Extremities: no edema. no calf tenderness. negative homans. good distal pulses
49-year-old female with nausea vomiting, mild metabolic acidosis. Patient improved after IV Benadryl and Compazine, as well as lactated Ringer's. Will repeat BMP, and if improving can discharge patient home with prescription for Zofran.
Discharge Plan
Departure
Patient Disposition: Admit
Date of Disposition: 05/13/25
Time of Disposition: 05:45
Admit to: Med/Surg
Presentation/result/management discussed w/ accepting MD/DO: Hospitalist
Patient with high blood pressure during this ER visit?: Yes
Discharge Problem:
Nausea & vomiting, Cannabinoid hyperemesis syndrome, Metabolic acidosis
Instructions: Nausea and Vomiting, Adult (DC), BLOOD PRESSURE
Prescriptions:
No Action
aripiprazole [Abilify] 10 mg Tablet
10 mg PO DAILY
venlafaxine 225 mg Tablet Extended Release 24hr
225 mg PO DAILY
atorvastatin 80 mg Tablet
80 mg PO QPM Qty: 30 0RF
nifedipine 60 mg Tablet Extended Release 24hr
60 mg PO DAILY Qty: 30 0RF
Patient Comments:
no pharmacy records for 2024
metoprolol succinate [Toprol XL] 50 mg Tablet Extended Release 24 Hr
50 mg PO DAILY Qty: 30 0RF
Patient Comments:
no pharmacy records for 2024
pantoprazole [Protonix] 20 mg Tablet,Delayed Release (Dr/Ec)
20 mg PO DAILY Qty: 30 0RF
Patient Comments:
no pharmacy records for 2024
ondansetron HCl 4 mg tablet
4 mg PO Q8H PRN (Reason: nausea and vomiting) Qty: 10 0RF
Referrals:
Law Bush MD [Family Provider, Family Practice] - Follow up in 1 week
Interventions
Interventions:
*Risk Screen - Suicide Last Done: 05/12/25 22:34
*Neglect/Abuse Screening Last Done: 05/12/25 22:34
DX-Yeqisy-Avamdwffeg Assessment Last Done: 05/13/25 01:00
Discharge Date and Time
Print Language: KOREAN
[2025-05-13 01:44] LABS: Hematocrit 41.3 % (37.0-47.0); Hemoglobin 14.7 g/dL (12.0-16.0); Mean Corp Hgb Conc. 35.6 g/dL (33.0-37.0); Mean Corpuscular Volume 87.3 fL (81.0-99.0); Nucleated Red Blood Cells % 0 %; Platelet Count 328 10^3/uL (130-400); Red Cell Dist. Width 12.8 % (11.5-14.5)
[2025-05-13] MEDS: LR 1000 IV ×4 (01:55→18:40)
[2025-05-13 02:02] LABS: Albumin 5.6 g/dl (3.5-5.0); Alkaline Phosphatase 130 U/L (38-126); Blood Urea Nitrogen 15 mg/dl (7-17); Calcium 10.2 mg/dl (8.4-10.2); Carbon Dioxide 9 mmol/L (22-30); Chloride 110 mmol/L (98-107); Glucose 172 mg/dl (70-99); Potassium 4.5 mmol/L (3.5-5.1); Sodium 143 mmol/L (135-145); Total Protein 8.6 g/dl (6.3-8.2); eGFR > 60.00
[2025-05-13] MEDS: BENADRYL 25 MG IV (02:03)
[2025-05-13] MEDS: COMPAZINE 10 MG IV ×2 (02:04→06:20)
[2025-05-13 02:09] LABS: ALT (SGPT) < 30 U/L (0-35); AST (SGOT) 35 U/L (14-36)
[2025-05-13 02:22] LABS: HCG, Serum Qualitative Screen Negative
[2025-05-13 05:28] LABS: Blood Urea Nitrogen 12 mg/dl (7-17); Calcium 9.7 mg/dl (8.4-10.2); Carbon Dioxide 16 mmol/L (22-30); Chloride 107 mmol/L (98-107); Glucose 129 mg/dl (70-99); Potassium 4.1 mmol/L (3.5-5.1); Sodium 142 mmol/L (135-145); eGFR > 60.00
--- NOTE | 2025-05-13 06:02 | HPS.HSE ---
Family Physician
-
Family Physician: Law Bush
Chief Complaint
-
N/V
History of Present Illness
Patient is a 49y F with PMH significant for hypertension and obesity who presents to ED complaining of N/V. Patient was most recently hospitalized in March with similar symptoms. She states that she stopped smoking marijuana following that
admission - but restarted on Thursday of this week. Her last use was Thursday. Patient states that she developed nausea with multiple episodes of non-bloody emesis starting Thursday AM. Her symptoms have persisted throughout the day and she
presented to the ED for further evaluation.
She denies abdominal pain, fevers / chills, symptoms, etc.
Medical History
Past Medical History
Past Medical History: Reports Other
Additional Past Medical History:
Anxiety / Panic Disorder
THC Use Disorder
Cannabinoid Hyperemesis
Obesity
ADHD
GERD
Migraine Headaches
Hypertension
Past Surgical History: Reports Other
Additional Past Surgical History:
x 2
Rhinoplasty / Septoplasty
Social History
Tobacco: Non-smoker
Alcohol: None
Drug: Marijuana (Used Thursday / Thursday.)
Personal: Single
Living: Alone
Family History
Family History: Not pertinent
Allergies / Home Medications
Allergies reflects when Allergies were last updated in [facility].
Home Medications with original date entered in [facility]
Allergy/Medication List:
Allergies
Allergy/AdvReac Type Severity Reaction Status Date / Time
No Known Allergies Allergy Verified 03/09/25 19:16
Home Medications
aripiprazole 10 mg tablet (Abilify) 10 mg PO DAILY 11/29/24
dexmethylphenidate 20 mg capsule,extended release -26 20 mg PO DAILYPRN PRN focus factor 03/03/25
venlafaxine 225 mg tablet,extended release 24 hr 225 mg PO DAILY 03/03/25
atorvastatin 80 mg tablet 80 mg PO QPM #30 tabs 03/06/25
cyanocobalamin (vitamin B-12) 1,000 mcg tablet (Vitamin B-12) 1,000 mcg PO DAILY #30 tabs 03/06/25
metoprolol succinate 50 mg tablet,extended release 24 hr (Toprol XL) 50 mg PO DAILY #30 tabs 03/06/25
nifedipine 60 mg tablet,extended release 24 hr 60 mg PO DAILY #30 tabs 03/06/25
pantoprazole 20 mg tablet,delayed release (Protonix) 20 mg PO DAILY #30 tabs 03/06/25
Review of Systems
-
History Source: Patient
A 12 point ROS was completed and negative except as noted: Yes
Constitutional: Denies Fever or Chills
Respiratory: Denies Cough or Trouble Breathing
Cardiac: Denies Chest Pain or Palpitations
Abdomen/GI: Reports Nausea and Vomiting; Denies Abdominal Pain or Diarrhea
: Denies Dysuria or Frequency
Musculoskeletal: Denies Joint Pain or Edema
Neurological: Denies Dizzy or Headache
Physical Exam
Vital Signs
Vital Signs
Temp Pulse Resp BP Pulse Ox
97.3 F 104 24 184/107 99
05/12/25 22:34 05/12/25 22:34 05/12/25 22:34 05/13/25 04:30 05/13/25 04:45
Physical Exam
General: Other (49y F in no acute distress.)
HEENT: Other (Dry MM. Neck supple.)
Respiratory: Clear; No Wheezes, Rales or Rhonchi
Cardiac: S1/S2 and Tachycardia; No Murmur
GI: Soft, Non Tender and Other (Bowel sounds are diminished throughout. No focal tenderness.)
Musculoskeletal: No Clubbing, No Cyanosis and No Edema
Neuro: AO x 3
Laboratory Results
-
05/13/25 01:33
05/13/25 04:54
Laboratory Results
Total Bilirubin 1.5 mg/dl (0.2-1.3) H 05/13/25 01:33
AST 35 U/L (14-36) 05/13/25 01:33
ALT < 30 U/L (0-35) 05/13/25 01:33
Alkaline Phosphatase 130 U/L (38-126) H 05/13/25 01:33
Impression/Plan
-
A/P: Patient is a 49y F with PMH significant for hypertension and prior cannabinoid hyperemesis who presents to ED complaining of intractable N/V.
Intractable N/V
Cannabinoid Hyperemesis
Anion Gap Metabolic Acidosis
- Observe overnight for further evaluation and treatment.
- Supportive care with IVFs, antiemetics, etc.
- Full liquids for now and advance diet as tolerated.
- Acidosis improving with IVFs in the ED.
- Continue to follow labs / lytes and adjust IVFs if needed.
- Follow for clinical improvement.
- Counselled on marijuana cessation.
Benign Hypertension
- Stable. Continue usual meds with holding parameters.
Anxiety / Depression
- Stable. Continue current med regimen.
Leukocytosis
- Likely stress response. Seen on similar presentations in the past.
- Follow for improvement with supportive care.
- No evidence of infectious process.
- Observe off of abx.
DVT Prophylaxis: SCDs
Code Status: Full
[2025-05-13] MEDS: BENADRYL 12.5 MG IV ×2 (06:19→15:41)
--- NOTE | 2025-05-13 07:46 | EDRN ---
this RN called the receiving unit and notified them that paper report was going to be tubed up
[2025-05-13] MEDS: EFFEXOR XR 225 MG PO (09:26)
[2025-05-13] MEDS: ABILIFY 10 MG PO (09:27)
[2025-05-13] MEDS: REGLAN 10 MG IV (09:27)
[2025-05-13] MEDS: PROCARDIA XL (EXTENDED RELEASE) 60 MG PO (09:27)
[2025-05-13] MEDS: FLUSH (NSS) 2 FLUSH IV ×3 (09:29→15:43)
[2025-05-13] MEDS: PROTONIX 40 MG PO (09:32)
[2025-05-13] MEDS: TOPROL XL 50 MG PO (09:35)
--- NOTE | 2025-05-13 10:27 | W.PN.UPDATE ---
Update Note
Progress Note Update
Nonbillable note
General: Other (49y F in no acute distress.)
HEENT: Other (Dry MM. Neck supple.)
Respiratory: Clear; No Wheezes, Rales or Rhonchi
Cardiac: S1/S2 and Tachycardia; No Murmur
GI: Soft, Non Tender and Other (Bowel sounds are diminished throughout. No focal tenderness.)
Musculoskeletal: No Clubbing, No Cyanosis and No Edema
Neuro: AO x 3
Intractable N/V
Cannabinoid Hyperemesis
Anion Gap Metabolic Acidosis
- Supportive care with IVFs, antiemetics, etc.
- Full liquids for now and advance diet as tolerated.
- Acidosis improving with IVFs
- Follow for clinical improvement.
- Counselled on marijuana cessation
Trial of Reglan
encourage hot shower
Benign Hypertension
- Stable. Continue usual meds with holding parameters.
Anxiety / Depression
- Stable. Continue current med regimen.
Leukocytosis
- Likely stress response. Seen on similar presentations in the past.
- Follow for improvement with supportive care.
- No evidence of infectious process.
- Observe off of abx.
DVT Prophylaxis: SCDs
Code Status: Full
[2025-05-13] MEDS: TYLENOL 650 MG PO (11:52)
[2025-05-13] MEDS: TORADOL 10 MG IV (14:57)
--- NOTE | 2025-05-13 15:04 | CM ---
Reviewed the chart notes and spoke with the patient at the bedside. The patient is being admitted under observational status. The observation letter was provided to the patient. The patient had no questions with regards to the letter.
The patient resides with her children in a two story home with three steps to enter. The patient reports no DME/VN/SNF in the past. The patient confirmed her pharmacy of choice is [facility]. continues to be available to
patient/family and is monitoring medical plan for needs at discharge.
Plan: Discharge to home when medically stable. No needs anticipated.
[2025-05-13] MEDS: COMPAZINE 5 MG IV (15:42)
[2025-05-13] MEDS: LIPITOR 80 MG PO (17:18)
[2025-05-13] MEDS: TUMS CHEWABLE TABLET 200 MG PO (19:20)
[2025-05-14] MEDS: LR 1000 IV ×3 (01:52→19:23)
[2025-05-14 04:34] LABS: Hematocrit 38.0 % (37.0-47.0); Hemoglobin 13.0 g/dL (12.0-16.0); Mean Corp Hgb Conc. 34.2 g/dL (33.0-37.0); Mean Corpuscular Volume 90.5 fL (81.0-99.0); Nucleated Red Blood Cells % 0 %; Platelet Count 301 10^3/uL (130-400); Red Cell Dist. Width 13.1 % (11.5-14.5)
[2025-05-14 05:07] LABS: ALT (SGPT) 15 U/L (0-35); AST (SGOT) 23 U/L (14-36); Albumin 4.3 g/dl (3.5-5.0); Alkaline Phosphatase 91 U/L (38-126); Blood Urea Nitrogen 11 mg/dl (7-17); Calcium 9.2 mg/dl (8.4-10.2); Carbon Dioxide 24 mmol/L (22-30); Chloride 106 mmol/L (98-107); Estimated Creatinine Clearance 83 ml/min; Glucose 103 mg/dl (70-99); Magnesium 1.9 mg/dl (1.6-2.3); Potassium 3.6 mmol/L (3.5-5.1); Sodium 139 mmol/L (135-145); Total Protein 6.7 g/dl (6.3-8.2); eGFR > 60.00
[2025-05-14 07:17] VITALS: BP 119/73
[2025-05-14] MEDS: PROTONIX 40 MG PO (08:00)
[2025-05-14] MEDS: ABILIFY 10 MG PO (08:00)
[2025-05-14] MEDS: TOPROL XL 50 MG PO (08:00)
[2025-05-14] MEDS: PROCARDIA XL (EXTENDED RELEASE) 60 MG PO (08:00)
[2025-05-14] MEDS: EFFEXOR XR 225 MG PO (08:00)
[2025-05-14] MEDS: BENADRYL 12.5 MG IV ×2 (10:10→22:38)
[2025-05-14] MEDS: COMPAZINE 5 MG IV (10:11)
[2025-05-14] MEDS: FLUSH (NSS) 2 FLUSH IV ×2 (10:11→12:31)
--- NOTE | 2025-05-14 11:04 | W.PN.HOSP.TC ---
Today's Communication/Plan
-
Monitor vital signs see plan
Continue with antiemetic
Still with nausea and vomiting
Encourage hot shower
Fluids
cw fulls for now
Assessment / Plan
Assessment / Plan
General: Other (49y F in no acute distress.)
HEENT: Other (Dry MM. Neck supple.)
Respiratory: Clear; No Wheezes, Rales or Rhonchi
Cardiac: S1/S2 and Tachycardia; No Murmur
GI: Soft, Non Tender and Other (Bowel sounds are diminished throughout. No focal tenderness.)
Musculoskeletal: No Clubbing, No Cyanosis and No Edema
Neuro: AO x 3
Intractable N/V
Cannabinoid Hyperemesis
Anion Gap Metabolic Acidosis
- Supportive care with IVFs, antiemetics, etc.
- Full liquids for now and advance diet as tolerated.
- Acidosis improving with IVFs
- Follow for clinical improvement.
- Counselled on marijuana cessation
encourage hot shower
Continue with antiemetic
Benign Hypertension
- Stable. Continue usual meds with holding parameters.
Anxiety / Depression
- Stable. Continue current med regimen.
Leukocytosis
- Likely stress response. Seen on similar presentations in the past.
- Follow for improvement with supportive care.
- No evidence of infectious process.
- Observe off of abx.
DVT Prophylaxis: SCDs
Code Status: Full
Anticipated Discharge: Within 24 hours
Subjective/Interval History
-
Date of Service: May 14, 2025
Still with nausea vomiting
Objective Data
-
Labs:
Laboratory Results
05/14/25
04:07
WBC 12.7 H
Hgb 13.0
Hct 38.0
Plt Count 301
Sodium 139
Potassium 3.6
Chloride 106
Carbon Dioxide 24
BUN 11
Creatinine 0.8
Glucose 103 H
Calcium 9.2
Total Bilirubin 1.1
AST 23
ALT 15
Alkaline Phosphatase 91
Vital Signs:
Vital Signs
Temp Pulse Resp BP Pulse Ox
98.2 F 90 16 119/73 97
05/14/25 07:17 05/14/25 07:17 05/14/25 07:17 05/14/25 07:17 05/14/25 08:00
I&O
05/13/25 05/14/25 05/15/25
06:59 06:59 06:59
Intake Total 0 / 0
Balance 0 / 2240
[2025-05-14] MEDS: TUMS CHEWABLE TABLET 200 MG PO (12:03)
[2025-05-14] MEDS: VALIUM INJECTION 2 MG IV (12:31)
[2025-05-14] MEDS: REGLAN 10 MG IV ×2 (12:31→19:24)
[2025-05-14 15:24] VITALS: BP 168/112
[2025-05-14] MEDS: LIPITOR 80 MG PO (16:51)
[2025-05-14] MEDS: LR IV (19:08)
[2025-05-14 23:14] VITALS: BP 143/93
[2025-05-15] MEDS: TORADOL 10 MG IV ×4 (01:20→23:01)
[2025-05-15] MEDS: LR 1000 IV ×2 (02:27→08:03)
[2025-05-15 07:24] VITALS: BP 158/99
[2025-05-15 08:03] LABS: Hematocrit 45.2 % (37.0-47.0); Hemoglobin 15.4 g/dL (12.0-16.0); Mean Corp Hgb Conc. 34.1 g/dL (33.0-37.0); Mean Corpuscular Volume 89.0 fL (81.0-99.0); Nucleated Red Blood Cells % 0 %; Platelet Count 384 10^3/uL (130-400); Red Cell Dist. Width 12.8 % (11.5-14.5)
[2025-05-15] MEDS: PROTONIX 40 MG PO (08:03)
[2025-05-15] MEDS: PROCARDIA XL (EXTENDED RELEASE) 60 MG PO (08:03)
[2025-05-15] MEDS: EFFEXOR XR 225 MG PO (08:04)
[2025-05-15] MEDS: TOPROL XL 50 MG PO (08:04)
[2025-05-15] MEDS: ABILIFY 10 MG PO (08:04)
[2025-05-15] MEDS: REGLAN 10 MG IV ×3 (08:08→23:01)
[2025-05-15 08:31] LABS: ALT (SGPT) 17 U/L (0-35); AST (SGOT) 25 U/L (14-36); Albumin 5.1 g/dl (3.5-5.0); Alkaline Phosphatase 115 U/L (38-126); Blood Urea Nitrogen 10 mg/dl (7-17); Calcium 9.8 mg/dl (8.4-10.2); Carbon Dioxide 24 mmol/L (22-30); Chloride 101 mmol/L (98-107); Estimated Creatinine Clearance 95 ml/min; Glucose 102 mg/dl (70-99); Potassium 3.6 mmol/L (3.5-5.1); Sodium 138 mmol/L (135-145); Total Protein 8.0 g/dl (6.3-8.2); eGFR > 60.00
--- NOTE | 2025-05-15 10:48 | W.PN.HOSP.TC ---
Today's Communication/Plan
-
Monitor vital
see plan
Monitor leukocytosis
DC further fluids for now
Advance diet
Assessment / Plan
Assessment / Plan
General: Other (49y F in no acute distress.)
HEENT: Other (Dry MM. Neck supple.)
Respiratory: Clear; No Wheezes, Rales or Rhonchi
Cardiac: S1/S2 and Tachycardia; No Murmur
GI: Soft, Non Tender and normal bowel sound
Musculoskeletal: No Edema
Neuro: AO x 3
Intractable N/V
Cannabinoid Hyperemesis
Anion Gap Metabolic Acidosis
DC further fluid
Advance diet
- Acidosis improving with IVFs
- Follow for clinical improvement.
- Counselled on marijuana cessation
encourage hot shower
Continue with antiemetic
PCP improving, still with leukocytosis. Will monitor.
Benign Hypertension
Continue with metoprolol, nifedipine
Monitor
Anxiety / Depression
- Stable. Continue current med regimen.
Leukocytosis
- Likely stress response. Seen on similar presentations in the past.
- Follow for improvement with supportive care.
- No evidence of infectious process.
- Observe off of abx.
DVT Prophylaxis: SCDs
Code Status: Full
Anticipated Discharge: Within 24 hours
Subjective/Interval History
-
Date of Service: May 15, 2025
feeling little better
Objective Data
-
Labs:
Laboratory Results
05/15/25
06:43
WBC 13.7 H
Hgb 15.4
Hct 45.2
Plt Count 384 D
Sodium 138
Potassium 3.6
Chloride 101
Carbon Dioxide 24
BUN 10
Creatinine 0.7
Glucose 102 H
Calcium 9.8
Total Bilirubin 1.2
AST 25
ALT 17
Alkaline Phosphatase 115
Vital Signs:
Vital Signs
Temp Pulse Resp BP Pulse Ox
98.4 F 108 18 158/99 99
05/15/25 07:24 05/15/25 07:24 05/15/25 07:24 05/15/25 07:24 05/15/25 07:24
I&O
05/14/25 05/15/25 05/16/25
06:59 06:59 06:59
Intake Total 2240 / 2240 1260 / 1260
Balance 2240 / 2240 1260 / 1260
--- NOTE | 2025-05-15 12:19 | CM ---
Patient seen at bedside on . Patient stated that she was doing better and had no concerns at this time. CM will continue to follow for discharge planning needs.
Plan; home with no needs anticipated.
[2025-05-15] MEDS: BENADRYL 12.5 MG IV ×2 (13:19→20:37)
[2025-05-15] MEDS: LOPRESSOR 5 MG IV (13:26)
[2025-05-15] MEDS: VALIUM INJECTION 2 MG IV (14:42)
[2025-05-15] MEDS: APRESOLINE 5 MG IV ×2 (14:43→23:01)
[2025-05-15 15:00] LABS: Urine Character Clear (Clear)
[2025-05-15 15:10] LABS: Urine Red Blood Cell 0-2 /HPF (0-2)
--- NOTE | 2025-05-15 16:39 | PTCARENOTE ---
Patient with N/V x 3 today after eating two bites of regular diet at lunch. Patient back on FLD. Reglan and Benadryl administered. BP elevated. IV Lopressor administered with no change in bp. IV hydralazine and Valium ordered per MD.
[2025-05-15] MEDS: LIPITOR 80 MG PO (17:31)
[2025-05-15 17:33] VITALS: BP 134/84
[2025-05-15] MEDS: TYLENOL 650 MG PO (20:38)
[2025-05-15 22:59] VITALS: BP 168/128
[2025-05-16 00:14] VITALS: BP 143/86
[2025-05-16 06:44] LABS: Hematocrit 44.1 % (37.0-47.0); Hemoglobin 15.5 g/dL (12.0-16.0); Mean Corp Hgb Conc. 35.1 g/dL (33.0-37.0); Mean Corpuscular Volume 89.3 fL (81.0-99.0); Nucleated Red Blood Cells % 0 %; Platelet Count 403 10^3/uL (130-400); Red Cell Dist. Width 12.8 % (11.5-14.5)
[2025-05-16 07:03] LABS: ALT (SGPT) 15 U/L (0-35); AST (SGOT) 20 U/L (14-36); Albumin 4.7 g/dl (3.5-5.0); Alkaline Phosphatase 99 U/L (38-126); Blood Urea Nitrogen 21 mg/dl (7-17); Calcium 9.8 mg/dl (8.4-10.2); Carbon Dioxide 25 mmol/L (22-30); Chloride 101 mmol/L (98-107); Estimated Creatinine Clearance 51 ml/min; Glucose 99 mg/dl (70-99); Potassium 3.4 mmol/L (3.5-5.1); Sodium 138 mmol/L (135-145); Total Protein 7.6 g/dl (6.3-8.2); eGFR 50.41
[2025-05-16 07:25] VITALS: BP 125/78
[2025-05-16] MEDS: PROTONIX 40 MG PO (09:08)
[2025-05-16] MEDS: ABILIFY 10 MG PO (09:08)
[2025-05-16] MEDS: STERILE WATER FOR INJECTION 10 ML IV (09:08)
[2025-05-16] MEDS: KCL 20 MEQ PO (09:08)
[2025-05-16] MEDS: TOPROL XL 50 MG PO (09:08)
[2025-05-16] MEDS: EFFEXOR XR 225 MG PO (09:08)
[2025-05-16] MEDS: PROCARDIA XL (EXTENDED RELEASE) 60 MG PO (09:09)
[2025-05-16] MEDS: REGLAN 10 MG IV ×2 (10:22→19:09)
[2025-05-16] MEDS: ROCEPHIN 1000 MG IV (10:23)
--- NOTE | 2025-05-16 11:17 | W.PN.HOSP.TC ---
Today's Communication/Plan
-
Monitor vital signs see plan
Continue ceftriaxone
Check urine lites
Check CT abdomen/pelvis
Monitor renal function
Antiemetics
Assessment / Plan
Assessment / Plan
General: Other (49y F in no acute distress.)
HEENT: Other (Dry MM. Neck supple.)
Respiratory: Clear; No Wheezes, Rales or Rhonchi
Cardiac: S1/S2 and Tachycardia; No Murmur
GI: Soft, Non Tender and normal bowel sound
Musculoskeletal: No Edema
Neuro: AO x 3
Intractable N/V
Cannabinoid Hyperemesis
Anion Gap Metabolic Acidosis
DC further fluid
Advanced diet 05/15, patient did not tolerate. Now still with nausea and vomiting. Plan now for CT abdomen/pelvis
now ubnable to tolerate diet
- Acidosis improving with IVFs
- Counselled on marijuana cessation
encourage hot shower
Continue with antiemetic
still with leukocytosis. Will monitor.
SIRS (leukocytosis, tachycardia)
bcx
this appears more from cannabinoid hyperemesis related however will rule out bacteremia
UTI
Urine culture pending
Started ceftriaxone
acute kidney injury
Cr 1.3, baseline 0.7
Continue with antibiotics for UTI
Check urine lites
Benign Hypertension
Continue with metoprolol, nifedipine
Monitor
Anxiety / Depression
- Stable. Continue current med regimen.
DVT Prophylaxis: SCDs,heparin
Code Status: Full
I spent a total of 52 minutes with the patient or on the floor. More than 50% of this time involved counseling and coordination of care.
Anticipated Discharge: Today
Subjective/Interval History
-
Date of Service: May 16, 2025
Still has nausea vomiting
Objective Data
-
Labs:
Laboratory Results
05/16/25
06:08
WBC 14.1 H
Hgb 15.5
Hct 44.1
Plt Count 403 H
Sodium 138
Potassium 3.4 L
Chloride 101
Carbon Dioxide 25
BUN 21 H
Creatinine 1.3 H
Glucose 99
Calcium 9.8
Total Bilirubin 1.2
AST 20
ALT 15
Alkaline Phosphatase 99
Vital Signs:
Vital Signs
Temp Pulse Resp BP Pulse Ox
98.2 F 107 16 125/78 95
05/16/25 07:25 05/16/25 09:09 05/16/25 07:25 05/16/25 09:09 05/16/25 07:25
I&O
05/15/25 05/16/25 05/17/25
06:59 06:59 06:59
Intake Total 1260 / 1260 900 / 900
Balance 1260 / 1260 900 / 900
[2025-05-16] MEDS: NSS 1000 IV ×2 (11:59→22:44)
[2025-05-16] MEDS: OMNIPAQUE 50 ML PO (12:00)
--- NOTE | 2025-05-16 14:50 | CM ---
Patient now INP status. Patient states she does not feel good today and is for further medical treatments at this time. CM will continue to follow for discharge planning needs.
Plan; home with no needs anticipated.
[2025-05-16 15:59] VITALS: BP 160/95
[2025-05-16 17:11] VITALS: BP 139/80
[2025-05-16] MEDS: LIPITOR 80 MG PO (17:12)
[2025-05-16] MEDS: BENADRYL 12.5 MG IV ×2 (17:15→23:25)
[2025-05-16] MEDS: HEPARIN 5000 UNITS SC (19:09)
[2025-05-16 23:17] VITALS: BP 140/89
[2025-05-17 05:56] LABS: Hematocrit 43.4 % (37.0-47.0); Hemoglobin 14.9 g/dL (12.0-16.0); Mean Corp Hgb Conc. 34.3 g/dL (33.0-37.0); Mean Corpuscular Volume 89.7 fL (81.0-99.0); Nucleated Red Blood Cells % 0 %; Platelet Count 375 10^3/uL (130-400); Red Cell Dist. Width 12.6 % (11.5-14.5)
[2025-05-17 06:21] LABS: ALT (SGPT) 15 U/L (0-35); AST (SGOT) 19 U/L (14-36); Albumin 4.3 g/dl (3.5-5.0); Alkaline Phosphatase 106 U/L (38-126); Blood Urea Nitrogen 20 mg/dl (7-17); Calcium 9.2 mg/dl (8.4-10.2); Carbon Dioxide 24 mmol/L (22-30); Chloride 104 mmol/L (98-107); Estimated Creatinine Clearance 66 ml/min; Glucose 92 mg/dl (70-99); Potassium 3.6 mmol/L (3.5-5.1); Sodium 138 mmol/L (135-145); Total Protein 6.7 g/dl (6.3-8.2); eGFR > 60.00
[2025-05-17 07:55] VITALS: BP 168/110
[2025-05-17] MEDS: REGLAN 10 MG IV (08:14)
[2025-05-17] MEDS: NSS 1000 IV (08:14)
[2025-05-17] MEDS: PROCARDIA XL (EXTENDED RELEASE) 60 MG PO (08:46)
[2025-05-17] MEDS: ABILIFY 10 MG PO (08:47)
[2025-05-17] MEDS: HEPARIN 5000 UNITS SC ×2 (08:47→20:21)
[2025-05-17] MEDS: PROTONIX 40 MG PO (08:47)
[2025-05-17] MEDS: EFFEXOR XR 225 MG PO (08:47)
[2025-05-17] MEDS: TOPROL XL 50 MG PO (08:47)
[2025-05-17 10:45] VITALS: BP 149/101
[2025-05-17] MEDS: ROCEPHIN 1000 MG IV (10:45)
[2025-05-17] MEDS: STERILE WATER FOR INJECTION 10 ML IV (10:45)
--- NOTE | 2025-05-17 10:49 | W.PN.HOSP.TC ---
Today's Communication/Plan
-
monitor vital signs see plan
DC further fluids for now
Start Colace
Continue antibiotics
Follow culture
Continue with full liquid for now
Continue reglan
Assessment / Plan
Assessment / Plan
General: Other (49y F in no acute distress.)
HEENT: Other (Dry MM. Neck supple.)
Respiratory: Clear; No Wheezes, Rales or Rhonchi
Cardiac: S1/S2 and Tachycardia; No Murmur
GI: Soft, Non Tender and normal bowel sound
Musculoskeletal: No Edema
Neuro: AO x 3
Intractable N/V
Cannabinoid Hyperemesis
Anion Gap Metabolic Acidosis
DC further fluid
Advanced diet 05/15, patient did not tolerate. Now still with nausea and vomiting. CT abdomen/pelvis with possible slow intestinal transit suspected gastroparesis. Also thickening of the wall of urinary bladder with possible cystitis
Continue with fulls for now
DC further IVF given hypertension
- Counselled on marijuana cessation
encourage hot shower
Continue with Reglan
If continues to have nausea and vomiting then will need GI evaluation
SIRS (leukocytosis, tachycardia)
bcx
this appears more from cannabinoid hyperemesis related however will rule out bacteremia
UTI
Urine culture pending
Started ceftriaxone
acute kidney injury
Cr 1.3, baseline 0.7
Creatinine now slowly improving, 1.1 today
Continue with antibiotics for UTI
Benign Hypertension
Continue with metoprolol, nifedipine
Monitor
Hydralazine as needed
Anxiety / Depression
- Stable. Continue current med regimen.
DVT Prophylaxis: SCDs,heparin
Code Status: Full
Anticipated Discharge: 24 - 48 hours
Subjective/Interval History
-
Date of Service: May 17, 2025
Feeling little better
Objective Data
-
Labs:
Laboratory Results
05/17/25
05:29
WBC 10.7
Hgb 14.9
Hct 43.4
Plt Count 375
Sodium 138
Potassium 3.6
Chloride 104
Carbon Dioxide 24
BUN 20 H
Creatinine 1.0
Glucose 92
Calcium 9.2
Total Bilirubin 1.2
AST 19
ALT 15
Alkaline Phosphatase 106
Vital Signs:
Vital Signs
Temp Pulse Resp BP Pulse Ox
98.4 F 114 18 149/101 98
05/17/25 10:45 05/17/25 10:45 05/17/25 07:55 05/17/25 10:45 05/17/25 10:45
I&O
05/16/25 05/17/25 05/18/25
06:59 06:59 06:59
Intake Total 900 / 900 1940 / 1940 720 / 720
Output Total 400 / 400
Balance 900 / 900 1540 / 1540 720 / 720
[2025-05-17] MEDS: COLACE 100 MG PO ×2 (11:22→20:21)
--- NOTE | 2025-05-17 14:53 | CM ---
CM following re: discharge planning.
Reviewed pt's chart, met with pt.
Pt resides with her children 2SH, no steps to enter and pt described herself as independent in all areas [employer].
D/C plan: home with anticipated no needs.
CM will follow with discharge plan updates as needed.
[2025-05-17 15:22] VITALS: BP 151/90
[2025-05-17] MEDS: LIPITOR 80 MG PO (17:05)
--- NOTE | 2025-05-17 19:05 | PTCARENOTE ---
Patient tolerated her BF and Lunch well. No vomiting noted. Nausea x 1 in the am. Reglan given as ordered. Denies pain. Plan of care ongoing. call day within reach.
[2025-05-17 23:42] VITALS: BP 151/96
--- NOTE | 2025-05-18 07:22 | W.PN.HOSP.TC ---
Today's Communication/Plan
-
Advance diet. Discharge planning today
Assessment / Plan
Assessment / Plan
General: Other (49y F in no acute distress.)
HEENT: Other (Dry MM. Neck supple.)
Respiratory: Clear; No Wheezes, Rales or Rhonchi
Cardiac: S1/S2 and Tachycardia; No Murmur
GI: Soft, Non Tender and normal bowel sound
Musculoskeletal: No Edema
Neuro: AO x 3
Intractable N/V
Cannabinoid Hyperemesis
Anion Gap Metabolic Acidosis
Improving overall
Will advance diet today.
Plan to discharge today if able to tolerate diet.
Prior to today:
DC further fluid
Advanced diet 05/15, patient did not tolerate. Now still with nausea and vomiting. CT abdomen/pelvis with possible slow intestinal transit suspected gastroparesis. Also thickening of the wall of urinary bladder with possible cystitis
Continue with fulls for now
DC further IVF given hypertension
- Counselled on marijuana cessation
encourage hot shower
Continue with Reglan
If continues to have nausea and vomiting then will need GI evaluation
SIRS (leukocytosis, tachycardia)
bcx
this appears more from cannabinoid hyperemesis related however will rule out bacteremia
UTI
Urine culture mixed growth
Started ceftriaxone switch to oral for 2 more days and treat empirically.
acute kidney injury
Cr 1.1 today (creatinine peaked at 1.3), baseline 0.7
Creatinine now slowly improving, 1.1 today
Continue with antibiotics for UTI
Benign Hypertension
Continue with metoprolol, nifedipine
Monitor
Hydralazine as needed
Anxiety / Depression
- Stable. Continue current med regimen.
DVT Prophylaxis: SCDs,heparin
Code Status: Full
Anticipated Discharge: Today
Subjective/Interval History
-
Date of Service: May 18, 2025
Feels better today. No nausea or vomiting.
Objective Data
-
Labs:
Laboratory Results
05/18/25
06:00
WBC Pending
Hgb Pending
Hct Pending
Plt Count Pending
Sodium Pending
Potassium Pending
Chloride Pending
Carbon Dioxide Pending
BUN Pending
Creatinine Pending
Glucose Pending
Calcium Pending
Total Bilirubin Pending
AST Pending
ALT Pending
Alkaline Phosphatase Pending
Vital Signs:
Vital Signs
Temp Pulse Resp BP Pulse Ox
98.2 F 62 18 151/96 96
05/17/25 23:42 05/17/25 23:42 05/17/25 23:42 05/17/25 23:42 05/17/25 23:42
I&O
05/17/25 05/18/25 05/19/25
06:59 06:59 06:59
Intake Total 1940 / 1940 2160 / 2160
Output Total 400 / 400
Balance 1540 / 1540 2160 / 2160
[2025-05-18 07:46] LABS: Hematocrit 40.1 % (37.0-47.0); Hemoglobin 13.7 g/dL (12.0-16.0); Mean Corp Hgb Conc. 34.2 g/dL (33.0-37.0); Mean Corpuscular Volume 90.3 fL (81.0-99.0); Nucleated Red Blood Cells % 0 %; Platelet Count 331 10^3/uL (130-400); Red Cell Dist. Width 12.3 % (11.5-14.5)
[2025-05-18 07:47] VITALS: BP 122/83
[2025-05-18 08:17] LABS: ALT (SGPT) 14 U/L (0-35); AST (SGOT) 19 U/L (14-36); Albumin 4.4 g/dl (3.5-5.0); Alkaline Phosphatase 91 U/L (38-126); Blood Urea Nitrogen 17 mg/dl (7-17); Calcium 9.4 mg/dl (8.4-10.2); Carbon Dioxide 27 mmol/L (22-30); Chloride 102 mmol/L (98-107); Estimated Creatinine Clearance 60 ml/min; Glucose 94 mg/dl (70-99); Potassium 3.7 mmol/L (3.5-5.1); Sodium 137 mmol/L (135-145); Total Protein 7.0 g/dl (6.3-8.2); eGFR > 60.00
[2025-05-18] MEDS: ABILIFY 10 MG PO (08:51)
[2025-05-18] MEDS: TOPROL XL 50 MG PO (08:51)
[2025-05-18] MEDS: EFFEXOR XR 225 MG PO (08:51)
[2025-05-18] MEDS: PROCARDIA XL (EXTENDED RELEASE) 60 MG PO (08:51)
[2025-05-18] MEDS: PROTONIX 40 MG PO (08:52)
[2025-05-18] MEDS: HEPARIN 5000 UNITS SC (08:52)
[2025-05-18] MEDS: COLACE 100 MG PO (08:52)
[2025-05-18] MEDS: ROCEPHIN 1000 MG IV (10:09)
[2025-05-18] MEDS: STERILE WATER FOR INJECTION 10 ML IV (10:09)
--- NOTE | 2025-05-18 11:46 | W.DCSUMMARY ---
Discharge Summary
Discharge Data
Date of Admission: 05/16/25
Date of Discharge: 05/18/25
-
Pending Results: No
Hospital Course
Patient 49 years old female history hypertension, obesity, on weight loss medications and cannabinoid use, came into the hospital with abdominal discomfort and intractable nausea and vomiting. She was given IV fluids and antiemetics and supportive
care. She was advanced her diet and able to tolerate. She also was felt to have a urinary tract infection and she was treated with antibiotics and urine culture showed mixed organisms. Patient feels back to her baseline so she is going to be
discharged in relatively stable condition today.
Discharge Plan
-
Patient Disposition: Home (Routine Discharge)
Discharge Diagnosis/Procedures: Intractable nausea and vomiting. Urinary tract infection. Acute kidney injury.
Diet: Low Fat and Low Residue
Additional Diets: Can go back to a regular diet within 1 week.
Activity: As tolerated
Driving Restrictions: As prior to admission
Blood Work: Please PCP to order CBC, BMP within 1 week
Referrals:
Law Bush MD [Family Provider, [facility]] - in less than 1 week
Additional Discharge Medication Instructions: Avoid cannabinoid
Prescriptions:
New
cephalexin 500 mg Capsule
500 mg PO BID 2 Days Qty: 4 0RF
Continued
aripiprazole [Abilify] 10 mg Tablet
10 mg PO DAILY
venlafaxine 225 mg Tablet Extended Release 24hr
225 mg PO DAILY
atorvastatin 80 mg Tablet
80 mg PO QPM Qty: 30 0RF
nifedipine 60 mg Tablet Extended Release 24hr
60 mg PO DAILY Qty: 30 0RF
Patient Comments:
no pharmacy records for 2024
metoprolol succinate [Toprol XL] 50 mg Tablet Extended Release 24 Hr
50 mg PO DAILY Qty: 30 0RF
Patient Comments:
no pharmacy records for 2024
pantoprazole [Protonix] 20 mg Tablet,Delayed Release (Dr/Ec)
20 mg PO DAILY Qty: 30 0RF
Patient Comments:
no pharmacy records for 2024
ondansetron HCl 4 mg tablet
4 mg PO Q8H PRN (Reason: nausea and vomiting) Qty: 10 0RF
Discontinued
Zepbound 5 mg/0.5 mL Pen Injector
5 mg SC QWEEK
Discharge Orders:
Discharge Patient (As Directed); Ordered 05/18/25
Ordered By: Dwayne Bassett
Discharge Date and Time
Print Language: MALTESE
[2025-05-18] MEDS: KEFLEX 500 MG PO (12:08)
--- NOTE | 2025-05-18 12:14 | CM ---
CM following re: discharge planning.
Reviewed pt's chart, met with pt.
Discharge order noted. pt is aware and she stated her car is parked on the parking lot and she will drive home.
Pt resides with her children 2SH, no steps to enter and pt described herself as independent in all areas [employer].
No after care VN services indicated.
D/C plan: home with no needs. Pt to drive home.
[2025-05-18 13:05] VITALS: BP 148/98
== END 2025-05-18 13:11 | disposition home or self-care (01) | DRG 682 ==
LOC: 2 NORTH 10:12
PROVIDERS: Internal Medicine; ADMITTING PHYSICIAN Hospitalist; ATTENDING PHYSICIAN Hospitalist; EMERGENCY PHYSICIAN Emergency Medicine; FAMILY PHYSICIAN Family Medicine
DX: N17.9 Acute kidney failure, unspecified (principal); R65.11 Systemic inflammatory response syndrome (SIRS) of non-infectious origin with acute organ dysfunction; E87.20 Acidosis, unspecified; N39.0 Urinary tract infection, site not specified; R11.2 Nausea with vomiting, unspecified; F32.A Depression, unspecified; F41.0 Panic disorder [episodic paroxysmal anxiety]; G43.909 Migraine, unspecified, not intractable, without status migrainosus; I10 Essential (primary) hypertension; K21.9 Gastro-esophageal reflux disease without esophagitis; N80.9 Endometriosis, unspecified; F12.10 Cannabis abuse, uncomplicated; E66.9 Obesity, unspecified; F90.9 Attention-deficit hyperactivity disorder, unspecified type; Z86.718 Personal history of other venous thrombosis and embolism; Z79.85 Long-term (current) use of injectable non-insulin antidiabetic drugs
CPT/HCPCS: 74177; 80048; 80053; 81003; 81015; 82570; 83735; 84100; 84300; 84703; 85025; 87040; 87086; 93005; 96360; 96361; 99284; Q9967

== ENCOUNTER → 2025-07-04 17:26 | Outpatient (REF) | payer OTHER, SELFPAY | LOC: RAD 17:26 | PROVIDERS: ATTENDING PHYSICIAN Nurse Practitioner | DX: R59.0 Localized enlarged lymph nodes (principal) | CPT/HCPCS: 76536 ==

== ENCOUNTER → 2025-07-12 16:47 | Outpatient (REF) | payer OTHER, SELFPAY | LOC: RAD 16:47 | PROVIDERS: ATTENDING PHYSICIAN Nurse Practitioner | DX: R59.0 Localized enlarged lymph nodes (principal) | CPT/HCPCS: 70491; Q9967 ==

== ENCOUNTER → 2025-07-26 16:40 | Outpatient (REF) | payer OTHER, SELFPAY | LOC: CLAB 16:40 | PROVIDERS: ATTENDING PHYSICIAN Otolaryngology | DX: R22.1 Localized swelling, mass and lump, neck (principal) | CPT/HCPCS: 88173 ==